=== PATIENT | male | born 1950 | race Caucasian/White ===

== ENCOUNTER 2020-10-17 10:09 | Outpatient (REF) | payer MEDICARE, SELFPAY ==
[2020-10-17 10:56] LABS: Alanine Aminotransferase 24 U/L (0-40); Albumin Level 4.2 g/dL (3.5-5.0); Alkaline Phosphatase 86 U/L (39-117); Aspartate Amino Transferase 17 U/L (5-37); Bilirubin Direct 0.6 mg/dL (0.0-0.5); Bilirubin Total 1.4 mg/dL (0.0-1.0); Cholesterol 123 mg/dL; HDL Cholesterol 36 mg/dL; LDL Cholesterol Calculated 75 mg/dl; Total Protein 6.9 g/dL (6.5-8.0); Triglycerides 64 mg/dL
[2020-10-17 13:06] LABS: Reflex LDLD? No
== END 2020-10-17 10:10 | disposition home or self-care (01) ==
LOC: HO.LNP 10:09
PROVIDERS: Visit Provider Internal Medicine
DX: I25.10 Atherosclerotic heart disease of native coronary artery without angina pectoris (principal); E78.6 Lipoprotein deficiency
CPT/HCPCS: 80061; 80076

== ENCOUNTER → 2020-11-20 16:10 | Outpatient (BNVA) | payer MEDICARE, SELFPAY | PROVIDERS: Visit Provider Nurse Practitioner Family | DX: K59.00 Constipation, unspecified (principal); K90.0 Celiac disease; K58.9 Irritable bowel syndrome, unspecified | CPT/HCPCS: 99212 ==

== ENCOUNTER 2020-11-22 16:45 | Outpatient (REF) | payer MEDICARE, SELFPAY ==
[2020-11-26 14:21] LABS: Transglutaminase Ab IgG 1 U/mL; Transglutaminase IgA 1 U/mL
== END 2020-11-22 16:46 | disposition home or self-care (01) ==
LOC: HO.LAB 16:45
PROVIDERS: PCP Internal Medicine; Visit Provider Nurse Practitioner Family
DX: R10.11 Right upper quadrant pain (principal); R14.0 Abdominal distension (gaseous)
CPT/HCPCS: 36415; 83516

== ENCOUNTER → 2020-12-25 15:40 | Outpatient (BNVA) | payer MEDICARE, SELFPAY | PROVIDERS: PCP Internal Medicine; Referring Provider Internal Medicine; Visit Provider Nurse Practitioner Family | DX: K90.0 Celiac disease (principal); K59.01 Slow transit constipation; K58.1 Irritable bowel syndrome with constipation | CPT/HCPCS: 99212 ==

== ENCOUNTER 2021-01-15 11:17 | Outpatient (REF) | payer MEDICARE, SELFPAY ==
--- NOTE | ~2021-01-15 | CT_ITS ---
EXAMINATION: CT CHEST WITHOUT CONTRAST CLINICAL INFORMATION: Followup pulmonary nodules. COMPARISON: None TECHNIQUE: Multidetector volumetric CT imaging of the chest was done. Axial MIP volume rendering provided. Sagittal and coronal reformatted images were obtained. This CT examination was performed using dose optimization techniques as appropriate, variously including the following: *Automated exposure control *Adjustment of mA and/or kV according to patient size (this includes techniques or standardized protocols for targeted exams where dose is matched to indication/reason for exam; i.e. extremities or head) *Use of iterative reconstruction technique DLP: 208 mGy-cm FINDINGS: LUNGS: There is a new 6 mm peripheral or subpleural right upper lobe nodule axial image 187 series 7. On sagittal and coronal reconstructed images, this appears linear and may represent an area of scarring or subsegmental atelectasis. There is a 2 mm calcified left upper lobe nodule axial image 217 series 7 that is stable. There is a 4 mm left upper lobe nodule axial image 424 series 7 that is stable. There is a 3 mm central right lower lobe nodule axial image 302 series 7 that is stable. There is a 5 mm left upper lobe nodule axial image 332 series 7 that is stable. There is a 6 mm right lower lobe nodule axial image 394 series 7 that is stable. There is scarring or subsegmental atelectasis in the inferior segment of the lingula. This appears decreased in size from previous exam. MEDIASTINUM: There is coronary artery and aortic valve calcification. The mediastinum is otherwise normal. PLEURA: There is no pleural effusion. No pleural mass or thickening. AXILLA: No lymphadenopathy. UPPER ABDOMEN: Unremarkable. OSSEOUS STRUCTURES: There are degenerative changes of the spine and at the shoulder joints. CT/CT chest wo con IMPRESSION: 6 mm new peripheral or subpleural right upper lobe nodule. On sagittal and coronal reconstructed images, this appears linear and may represent an area of subsegmental atelectasis. Otherwise, small pulmonary nodules are stable. Interval decrease in atelectasis or scarring in the lingula. Coronary artery and aortic valve calcification.
== END 2021-01-15 11:18 | disposition home or self-care (01) ==
LOC: HO.CT 11:17
PROVIDERS: Visit Provider Internal Medicine
DX: R91.1 Solitary pulmonary nodule (principal)
CPT/HCPCS: 71250

== ENCOUNTER 2021-04-15 10:26 | Outpatient (REF) | payer MEDICARE, SELFPAY ==
[2021-04-15 10:31] LABS: MANUAL DIFF FLAG NO
[2021-04-15 10:39] LABS: Basophils Absolute Auto 0.1 X10*3/uL (0.0-0.2); Basophils Percent Auto 0.8 % (0-2); Eosinophils Absolute Auto 0.5 X10*3/uL (0.0-0.4); Eosinophils Percent Auto 6.8 % (0-4); Hematocrit 42.1 % (42.0-52.0); Hemoglobin 13.3 g/dl (14.0-18.0); Imm Gran Abs Auto 0.01 X10*3/uL (0.00-0.03); Imm Gran Pct Auto 0.1 % (0.0-0.4); Lymphocytes Percent Auto 26.8 % (20-40); Mean Corpuscular HGB Conc 31.6 g/dl (31.0-36.0); Mean Corpuscular Hemoglobin 26.2 pg (27.0-33.0); Mean Platelet Volume 11.8 fL (9.4-12.4); Monocytes Absolute Auto 0.8 X10*3/uL (0.1-1.2); Monocytes Percent Auto 10.4 % (2-11); Neutrophils Absolute Auto 4.1 x10*3/uL (2.0-8.3); Neutrophils Percent Auto 55.1 % (45-73); Platelet Count 185 X10*3/uL (160-400); Red Blood Count 5.07 X10*6/uL (4.60-5.80); Red Cell Distribution Width 14.6 % (11.0-16.0); White Blood Count 7.4 X10*3/uL (4.8-10.8)
[2021-04-15 10:52] LABS: Alanine Aminotransferase 26 U/L (0-40); Albumin Level 4.2 g/dL (3.5-5.0); Alkaline Phosphatase 100 U/L (39-117); Anion Gap 13 (12-20); Aspartate Amino Transferase 18 U/L (5-37); Bilirubin Total 1.2 mg/dL (0.0-1.0); Blood Urea Nitrogen 15 mg/dL (9-16); Carbon Dioxide 26 mmol/L (22-29); Chloride 106 mmol/L (96-108); Cholesterol 133 mg/dL; Estimated Glomerular Filt Rate > 60; Glucose Fasting 115 mg/dL (60-99); HDL Cholesterol 32 mg/dL; LDL Cholesterol Calculated 80 mg/dl; Potassium 4.4 mmol/L (3.3-5.1); Sodium 141 mmol/L (135-145); Total Protein 7.1 g/dL (6.5-8.0); Triglycerides 105 mg/dL
[2021-04-15 10:58] LABS: Appearance Urine CLEAR; Color Urine YELLOW; Glucose Urine UA NEG (NEG); Leukocyte Esterase Urine NEG (NEG); Nitrite Urine NEG (NEG); Urine Blood 1+ (NEG); Urine Ketones NEG (NEG); Urine Protein NEG (NEG-TRACE)
[2021-04-15 11:17] LABS: PSA,Total (Free>4and<10) 0.53 ng/mL (0.00-4.00); WBC Urine 0-2 /HPF (0-4)
== END 2021-04-15 10:27 | disposition home or self-care (01) ==
LOC: HO.LNP 10:26
PROVIDERS: PCP Internal Medicine; Visit Provider Internal Medicine
DX: Z00.00 Encounter for general adult medical examination without abnormal findings (principal); Z12.5 Encounter for screening for malignant neoplasm of prostate; I10 Essential (primary) hypertension; D50.9 Iron deficiency anemia, unspecified; I25.10 Atherosclerotic heart disease of native coronary artery without angina pectoris
CPT/HCPCS: 80053; 80061; 81001; 81003; 84153; 85025

== ENCOUNTER 2021-11-03 11:27 | Outpatient (REF) | payer MEDICARE, SELFPAY ==
[2021-11-03 12:02] LABS: Alanine Aminotransferase 32 U/L (0-40); Albumin Level 4.4 g/dL (3.5-5.0); Alkaline Phosphatase 89 U/L (39-117); Aspartate Amino Transferase 21 U/L (5-37); Bilirubin Direct 0.6 mg/dL (0.0-0.5); Bilirubin Total 1.8 mg/dL (0.0-1.0); Cholesterol 148 mg/dL; HDL Cholesterol 37 mg/dL; LDL Cholesterol Calculated 89 mg/dl; Total Protein 7.3 g/dL (6.5-8.0); Triglycerides 110 mg/dL
[2021-11-03 12:16] LABS: Reflex LDLD? No
== END 2021-11-03 11:28 | disposition home or self-care (01) ==
LOC: HO.LNP 11:27
PROVIDERS: PCP Internal Medicine; Visit Provider Internal Medicine
DX: E78.6 Lipoprotein deficiency (principal)
CPT/HCPCS: 80061; 80076

== ENCOUNTER 2021-12-24 13:08 | Outpatient (REF) | payer MEDICARE, SELFPAY ==
--- NOTE | ~2021-12-24 | CT_ITS ---
EXAMINATION: CT CHEST WITHOUT CONTRAST CLINICAL INFORMATION: Lung nodules. COMPARISON: CT chest 01/15/2021, 12/15/2018; PET/CT 01/05/2019 TECHNIQUE: Multidetector volumetric CT imaging of the chest is performed without intravenous contrast. Axial MIP volume rendering provided. Sagittal and coronal reformatted images were obtained. This CT examination was performed using dose optimization techniques as appropriate, variously including the following: *Automated exposure control *Adjustment of mA and/or kV according to patient size (this includes techniques or standardized protocols for targeted exams where dose is matched to indication/reason for exam; i.e. extremities or head) *Use of iterative reconstruction technique DLP: 226 mGy-cm FINDINGS: LUNGS: Right lung shows no increasing nodule or new interval new nodule, infiltrate, or groundglass opacity from prior studies. The nodule for follow-up posterior medial upper lobe series 7/184 is substantially decreased in size and appears linear on coronal imaging consistent with benign entity. The largest persistent nodule subpleural posterior right lower lobe 5-6 mm is stable since 2019 consistent with benign nodule, series 7/418. Other small scattered nodularity under 4 mm are also stable since 2019 and therefore benign. Left lung has subsegmental atelectasis in the inferior lingula, decreased from prior exam 01/15/2021. Finding was new from the prior study 2018. Other nodularity left lung are all stable since 2019 consistent with benign nodules, largest 5 mm anterior lateral left upper lobe, series 7/312. There is no increasing nodule or new nodule, infiltrate, or groundglass opacity from prior studies. MEDIASTINUM: No hilar or mediastinal adenopathy. Thoracic aorta normal in caliber. Coronary artery atherosclerotic calcifications again seen. No pericardial effusion. PLEURA: No interval pleural effusion or pleural mass or pleural thickening. AXILLA: No lymphadenopathy. UPPER ABDOMEN: Unremarkable. OSSEOUS STRUCTURES: Unremarkable. CT/CT chest wo con IMPRESSION: -Pleural-based nodules/atelectasis posterior medial right upper lobe for follow-up is substantially decreased consistent with benign entity. Other nodularity on right stable since 2019 consistent with benign nodules. -Subsegmental atelectasis inferior lingula left lung decreased from prior exam 01/15/2021. Other nodularity on left stable since 2019 consistent with benign nodules. -No new pulmonary nodule. No adenopathy or effusion. Fleischner guidelines were followed. Reference: The Fleischner Society recommendations for management of incidentally detected pulmonary nodules in adults age 35 and greater are based on average nodule size and patient risk category. The recommendations do not apply to lung cancer screening, patients with immunosuppression, or patients with known primary cancer. Single solid nodule average size < 6 mm: Low Risk Patient: No routine follow-up. High Risk Patient: Optional CT at 12 months. Certain patients at high risk with suspicious nodule morphology, upper lobe location, or both may warrant 12-month follow-up. Multiple solid nodules average size < 6 mm: Low Risk Patient: No routine follow-up. High Risk Patient: Optional CT at 12 months. Use most suspicious nodule as guide to management. Follow-up intervals may vary according to size and risk.
== END 2021-12-24 13:09 | disposition home or self-care (01) ==
LOC: HO.CT 13:08
PROVIDERS: PCP Internal Medicine; Visit Provider Internal Medicine
DX: R91.1 Solitary pulmonary nodule (principal)
CPT/HCPCS: 71250

== ENCOUNTER 2022-05-05 11:06 | Outpatient (REF) | payer MEDICARE, SELFPAY ==
[2022-05-05 13:59] LABS: Alanine Aminotransferase 29 U/L (0-40); Albumin Level 4.3 g/dL (3.5-5.0); Alkaline Phosphatase 102 U/L (39-117); Aspartate Amino Transferase 21 U/L (5-37); Bilirubin Direct 0.5 mg/dL (0.0-0.5); Bilirubin Total 1.5 mg/dL (0.0-1.0); Cholesterol 145 mg/dL; HDL Cholesterol 37 mg/dL; LDL Cholesterol Calculated 91 mg/dl; Triglycerides 89 mg/dL
[2022-05-05 14:13] LABS: Reflex LDLD? No
== END 2022-05-05 11:07 | disposition home or self-care (01) ==
LOC: HO.LNP 11:06
PROVIDERS: Visit Provider Internal Medicine
DX: E78.00 Pure hypercholesterolemia, unspecified (principal)
CPT/HCPCS: 80061; 80076

== ENCOUNTER 2022-05-12 10:29 | Outpatient (REF) | payer MEDICARE, SELFPAY ==
[2022-05-12 10:32] LABS: MANUAL DIFF FLAG NO
[2022-05-12 10:59] LABS: Basophils Percent Auto 0.5 % (0-2); Eosinophils Absolute Auto 0.4 X10*3/uL (0.0-0.4); Eosinophils Percent Auto 4.2 % (0-4); Hemoglobin 13.2 g/dl (14.0-18.0); Imm Gran Abs Auto 0.03 X10*3/uL (0.00-0.03); Imm Gran Pct Auto 0.4 % (0.0-0.4); Lymphocytes Absolute Auto 1.5 X10*3/uL (1.2-4.9); Lymphocytes Percent Auto 17.7 % (20-40); Mean Corpuscular Hemoglobin 27.3 pg (27.0-33.0); Mean Corpuscular Volume 82.6 fL (80.0-98.0); Monocytes Absolute Auto 0.8 X10*3/uL (0.1-1.2); Monocytes Percent Auto 9.1 % (2-11); Neutrophils Absolute Auto 5.6 x10*3/uL (2.0-8.3); Neutrophils Percent Auto 68.1 % (45-73); Platelet Count 178 X10*3/uL (160-400); Red Blood Count 4.84 X10*6/uL (4.60-5.80); Red Cell Distribution Width 14.6 % (11.0-16.0); White Blood Count 8.2 X10*3/uL (4.8-10.8)
[2022-05-12 11:01] LABS: Appearance Urine Clear; Color Urine Yellow; Glucose Urine UA Negative (Negative); Leukocyte Esterase Urine Negative (Negative); Nitrite Urine Negative (Negative); PH 5.5 (5.0-9.0); UMIC TRIGGER UA YES; Urine Blood Trace (Negative); Urine Ketones Negative (Negative); Urine Protein Negative (Neg-Trace)
[2022-05-12 11:06] LABS: Bacteria Urine None Seen (None Seen); Hyaline Casts Urine 0-2 /LPF (0-2); RBC Urine 0-2 /HPF (0-2); Squamous Epithelial Cell Urine 0-2 /HPF (0-2); WBC Urine 0-5 /HPF (0-5)
[2022-05-12 15:13] LABS: Alanine Aminotransferase 26 U/L (0-40); Albumin Level 4.4 g/dL (3.5-5.0); Alkaline Phosphatase 101 U/L (39-117); Anion Gap 14 (12-20); Aspartate Amino Transferase 19 U/L (5-37); Blood Urea Nitrogen 23 mg/dL (9-16); Calcium 9.3 mg/dL (8.4-10.2); Carbon Dioxide 28 mmol/L (22-29); Chloride 103 mmol/L (96-108); Estimated Glomerular Filt Rate > 60; Glucose Fasting 114 mg/dL (60-99); PSA,Total (Free>4and<10) 0.66 ng/mL (0.00-4.00); Potassium 3.9 mmol/L (3.3-5.1); Sodium 141 mmol/L (135-145); Total Protein 7.1 g/dL (6.5-8.0); Uric Acid 9.4 mg/dL (3.4-7.0)
== END 2022-05-12 10:30 | disposition home or self-care (01) ==
LOC: HO.LNP 10:29
PROVIDERS: Visit Provider Internal Medicine
DX: Z12.5 Encounter for screening for malignant neoplasm of prostate (principal); M17.10 Unilateral primary osteoarthritis, unspecified knee; K90.0 Celiac disease; M1A.9XX1 Chronic gout, unspecified, with tophus (tophi); Z87.448 Personal history of other diseases of urinary system
CPT/HCPCS: 80053; 81001; 84153; 84550; 85025

== ENCOUNTER → 2022-06-11 10:31 | Outpatient (REF) | payer MEDICARE, SELFPAY ==
--- NOTE | 2022-06-11 10:37 | CA_ITS ---
Transthoracic Echocardiogram Patient (Last, First, Middle): Yayo Rodrigues M Gender: Male Date of : 1950 Age: 72 Procedure Date: 06/11/2022 Procedure Type: Transthoracic Echocardiogram Location: OP Height: 177.8 cm Weight: 95.26 kg BSA: 2.13 m2 Heart Rate: 56 bpm BP: 110 / 60 mmHg Tuberculosis Specialist: BARRY Referring MD: Osito Mulligan MD Sugar Reprocess Operator Head: Tk Garrido MD Symptoms: I35.0 NR AVS Study Quality: Fair ECG Rhythm: Bradycardia Conclusions: - 1. Normal LV systolic function with impaired relaxation filling pattern with increased filling pressures 2. Mildly dilated left atrium 3. Mild aortic stenosis 4. Normal RV systolic pressure 5. Mildly dilated ascending aorta at 4 cm 6. No pericardial effusion Findings Left Ventricle Normal left ventricular size, thickness, and systolic function. The visually estimated ejection fraction is between 55-60%. Spectral Doppler is indicative of an impaired relaxation filling pattern. Elevated filling pressures. E/E prime ratio is >15, consistent with elevated filling pressures. Right Ventricle Normal right ventricular cavity size and systolic function. Atria The left atrium is mildly dilated. Interatrial shunt cannot be excluded. The right atrium is normal in size. Aortic Valve There is moderate calcification of the aortic valve. There is mild aortic valve stenosis. The peak aortic gradient is 23 mmHg.The mean gradient is 13 mmHg. The aortic valve area is 1.58 cm2. There is no aortic valve regurgitation. Mitral Valve There is mild anterior and moderate posterior mitral leaflet thickening. There is moderate mitral annular calcification. There is trace mitral valve regurgitation. There is no mitral valve stenosis. Pulmonic Valve The pulmonic valve was not well visualized. Tricuspid Valve Likely normal tricuspid valve structure and function. There is trace tricuspid valve regurgitation. The right ventricular systolic pressure is normal. The right ventricular systolic pressure is 21 mmHg. Normal right atrial pressure. There is no evidence of pulmonary hypertension. Great Vessels The pulmonary artery was not well visualized. There is mild dilatation of the ascending aorta measuring 4.00 cm. Venous The inferior vena cava is normal in size and collapses greater than 50% with inspiration. Pericardium/Pleural There is no evidence of pericardial effusion. Prior Study Comparison Changes noted compared to prior study dated: 10/13/2016. ascending aorta is mildly enlarged Measurements 2D Linear Measurements IVSd: 1.06 0.6-0.9/0.6-1.0 cm LVIDd: 5.47 3.9-5.3/4.2-5.9 cm LVIDd Index: 2.57 2.4-3.2/2.2-3.1 cm/m2 LVIDs: 3.96 2.0-3.6 cm LVPWd: 0.79 0.7-1.1 cm LA Diam: 3.90 2.7-3.8/3.0-4.0 cm LAIDs Index: 1.83 1.5-2.3 cm/m2 LV Mass: 237.20 67-162/88-224 g LV Mass Index: 111.36 43-95/49-115 g/m2 LVOT Diam: 2.30 3.0+(-)1.3 cm 2D Systolic Function EF 4C: 59.70 >55% EF 2C: 55.00 >55% EF BiP: 56.30 >55% Mitral Valve MV VTI: 0.44 MV Pk Rudi: 1.08 MV Mn Rudi: 0.66 MV Pk Grad: 5.00 MV Mn Grad: 2.00 MV Pk E: 0.91 MV PK A: 0.96 MV Decel Time: 298.00 E/A: 1.00 E'Lateral: 4.98 E'Medial: 4.88 E/E' Med: 18.60 E/E' Lat: 18.20 PHT: 87.00 MVA PHT: 2.53 MVA Continuity: 2.02 Decel Collin: 3.05 Aortic Valve AoV Pk Rudi: 2.39 AoV Mn Rudi: 1.74 AoV VTI: 0.56 AoV Pk Grad: 23.00 Aov Mn Grad: 13.00 LAUREN Cont.VTI: 1.58 LVOT LVOT Pk Rudi: 0.92 LVOT Mn Rudi: 0.65 LVOT VTI: 0.21 LVOT Pk Grad: 3.00 LVOT Mn Grad: 2.00 LVOT Diam: 2.30 LVOT Area: 4.15 Diastolic Function MV Pk E: 0.91 MV Pk A: 0.96 E/A: 1.00 E'Medial: 4.88 E/E' Med: 18.60 E' Laterial: 4.98 E/E' Lat: 18.20 Right Ventricle TAPSE (mm): 22.30 TVS' Rudi: 11.60 Tricuspid Valve TR Pk Rudi: 2.13 TR Pk Grad: 18.00 RA Press: 3.00 RVSP: 21.00 Great Vessels Aorta Sinus of Valsalva: 3.90 2.0-3.5 cm Ao Asc: 4.00 2.1-3.4 cm Pulmonary Valve PV Pk Rudi: 0.87 Peak PV Grad: 3.00 Updated in Other Vendor System with Status of Final Tk Garrido MD electronically signed on 06/11/2022 4:36:53 PM with status of Final
== END ==
LOC: HO.CARD 10:31
PROVIDERS: PCP Internal Medicine; Visit Provider Internal Medicine
DX: I35.0 Nonrheumatic aortic (valve) stenosis (principal)
CPT/HCPCS: 93306

== ENCOUNTER 2022-06-18 06:05 | Outpatient (REF) | payer MEDICARE, SELFPAY ==
--- NOTE | ~2022-06-18 | XR_ITS ---
EXAMINATION: RADIOGRAPH OF EACH KNEE, INCLUDING STANDING VIEWS CLINICAL INFORMATION: Pain. COMPARISON: No similar priors. TECHNIQUE: AP standing view of the knees. 2 views of each knee. FINDINGS: No acute fractures or subluxation. Severe tricompartmental degenerative osteoarthritis in both knees with joint space narrowing, subcortical sclerosis and marginal osteophytes more noticeable along the medial and patellofemoral compartments, slightly greater on the left side. No erosions or chondrocalcinosis. Small bilateral joint effusions. Scattered vascular calcifications. XR/XR knee RT 2V IMPRESSION: 1. No acute fractures or subluxation. 2. Severe tricompartmental degenerative osteoarthritis in both knees. 3. Small bilateral joint effusions.
--- NOTE | ~2022-06-18 | XR_ITS ---
EXAMINATION: RADIOGRAPH OF EACH KNEE, INCLUDING STANDING VIEWS CLINICAL INFORMATION: Pain. COMPARISON: No similar priors. TECHNIQUE: AP standing view of the knees. 2 views of each knee. FINDINGS: No acute fractures or subluxation. Severe tricompartmental degenerative osteoarthritis in both knees with joint space narrowing, subcortical sclerosis and marginal osteophytes more noticeable along the medial and patellofemoral compartments, slightly greater on the left side. No erosions or chondrocalcinosis. Small bilateral joint effusions. Scattered vascular calcifications. XR/XR knee standing BI IMPRESSION: 1. No acute fractures or subluxation. 2. Severe tricompartmental degenerative osteoarthritis in both knees. 3. Small bilateral joint effusions.
--- NOTE | ~2022-06-18 | XR_ITS ---
EXAMINATION: RADIOGRAPH OF EACH KNEE, INCLUDING STANDING VIEWS CLINICAL INFORMATION: Pain. COMPARISON: No similar priors. TECHNIQUE: AP standing view of the knees. 2 views of each knee. FINDINGS: No acute fractures or subluxation. Severe tricompartmental degenerative osteoarthritis in both knees with joint space narrowing, subcortical sclerosis and marginal osteophytes more noticeable along the medial and patellofemoral compartments, slightly greater on the left side. No erosions or chondrocalcinosis. Small bilateral joint effusions. Scattered vascular calcifications. XR/XR knee LT 2V IMPRESSION: 1. No acute fractures or subluxation. 2. Severe tricompartmental degenerative osteoarthritis in both knees. 3. Small bilateral joint effusions.
== END 2022-06-18 06:06 | disposition home or self-care (01) ==
LOC: HO.HOSX 06:05
PROVIDERS: Visit Provider Physician Assistant
DX: M25.562 Pain in left knee (principal); M25.561 Pain in right knee
CPT/HCPCS: 73560; 73565; 99202

== ENCOUNTER 2022-10-06 10:02 | Day surgery (SDC) | payer MEDICARE, SELFPAY ==
--- NOTE | 2022-10-05 11:06 | HO.ANESPROP2 ---
HPI - Anesthesia Eval Consult details Narrative: 72yo M for Colonoscopy PMFSH Active Problems Active Problems: All Active Problems (Updated 10/05/22 @ 10:26 by Gisselle Moon, RN) Osteoarthritis of knees, bilateral (Acute) Past Medical History Medical History (Updated 10/05/22 @ 10:26 by Gisselle Moon, RN) Family history of heart murmur High cholesterol History of celiac disease Hx of acute arthritis Hx of cardiac murmur Hx of colonic polyps Hx of gout Family History Family History Father Lung cancer Surgical History Surgical History Hx of esophagogastroduodenoscopy Hx of hernia repair Social History Social History Patient Tobacco Use Status: Never used Tobacco Are you DNR?: No Advance Directives: No Advance Directives Information Provided: Yes Meds Allergies Allergy/AdvReac Type Severity Reaction Status Date / Time codeine Allergy Unknown mild Verified 06/18/22 10:07 Sulfa (Sulfonamide Allergy Unknown RASH Verified 06/18/22 10:07 Antibiotics) Home Medications Medication Instructions Recorded Confirmed Last Taken Type amlodipine 5 mg tablet 5 mg PO DAILY 11/20/20 06/18/22 10/06/22 History aspirin 81 mg tablet,delayed 81 mg PO DAILY 11/20/20 06/18/22 09/29/22 History release (Adult Aspirin Regimen) atorvastatin 40 mg tablet 40 mg PO DAILY 11/20/20 06/18/22 Unknown History cholecalciferol (vitamin D3) 50 50 mcg PO DAILY 11/20/20 06/18/22 Unknown History mcg (2,000 unit) capsule lisinopril 20 mg tablet 20 mg PO BID 11/20/20 06/18/22 Unknown History metoprolol tartrate 100 mg tablet 100 mg PO BID 11/20/20 06/18/22 10/06/22 History Exam Exam Date and Time: October 05, 2022 1106 Pertinent Lab Results Pertinent Lab Results: Laboratory Tests 05/12/22 05/12/22 09:30 09:30 WBC 8.2 Hgb 13.2 L Hct 40.0 L Plt Count 178 Sodium 141 Potassium 3.9 Chloride 103 Carbon Dioxide 28 BUN 23 H Creatinine 1.06 Narrative Narrative: ECHO 05/2022 Conclusions: - 1. Normal LV systolic function with impaired relaxation filling pattern with increased filling pressures ? 2. Mildly dilated left atrium? 3. Mild aortic stenosis? 4. Normal RV systolic pressure ? 5. Mildly dilated ascending aorta at 4 cm? 6. No pericardial effusion ? Assessment and Plan Assessment Anesthesia Assessment: Chart Reviewed
[2022-10-06 10:09] VITALS: BMI 30.1
[2022-10-06 10:24] VITALS: BP 150/78; PULSE 56; RESP 18; TEMP 36.6; O2SAT 98
[2022-10-06] MEDS: Lactated Ringers 1,000 ML 100 ML IVCONT (10:49)
--- NOTE | 2022-10-06 11:41 | MHC.SHP ---
Pre-Procedural Eval Section A Date of Service: 10/06/22 Section B Chief Complaint: screening Details of Present Illness: see H&P no changes Relevant Family History (Specify if Yes): No Relevant Social History: None Present Medications: see Short Stay Collaborative assessment Medical History: No relevant PMH History of Previous Operations: No relevant previous surgery Allergies: Allergies Allergy/AdvReac Type Severity Reaction Status Date / Time codeine Allergy Unknown mild Verified 06/18/22 10:07 Sulfa (Sulfonamide Allergy Unknown RASH Verified 06/18/22 10:07 Antibiotics) Review of Systems Sugical H&P ROS: Negative: Constitution, Cardiovascular, Respiratory, Neurological, Psychiatric, Hem-Onc, Allergic/Immunologic, Gastrointestinal, Genitourinary, Musculoskeletal, Integumentary, Endocrine and Eyes/Ears/Nose/Throat Exam Surgical H&P Exam: Normal: HEENT, Normal: Heart, Normal: Lungs, Normal: Extremities, Normal: Abdomen, Normal: Skin and Normal: Neurological Plan Diagnosis/Plan: Unchanged I have reviewed the history and physical and performed a pertinent physical examination on my patient. No changes have occurred unless specified. Time Spent With Patient Time: Total time managing care of this patient today ____ minutes.
--- NOTE | 2022-10-06 12:20 | HO.ANESPROP2 ---
HPI - Anesthesia Eval Consult details Narrative: screening personal ho polyp PMFSH Active Problems Active Problems: All Active Problems (Updated 10/05/22 @ 10:26 by Gisselle Moon, RN) Osteoarthritis of knees, bilateral (Acute) Past Medical History Medical History (Updated 10/05/22 @ 10:26 by Gisselle Moon, RN) Family history of heart murmur High cholesterol History of celiac disease Hx of acute arthritis Hx of cardiac murmur Hx of colonic polyps Hx of gout Family History Family History Father Lung cancer Family history of problems with anesthesia: No Surgical History Surgical History Hx of esophagogastroduodenoscopy Hx of hernia repair History of Problems with Anesthesia: No Social History Social History Patient Tobacco Use Status: Never used Tobacco Are you DNR?: No Advance Directives: No Advance Directives Information Provided: Yes Meds Allergies Allergy/AdvReac Type Severity Reaction Status Date / Time codeine Allergy Unknown mild Verified 06/18/22 10:07 Sulfa (Sulfonamide Allergy Unknown RASH Verified 06/18/22 10:07 Antibiotics) Active Medications: Current Medications Lactated Ringer's (Lr) 1,000 mls @ 100 mls/hr IVCONT .Q10H MARGO Last Admin: 10/06/22 10:49 Dose: 100 mls/hr Home Medications Medication Instructions Recorded Confirmed Last Taken Type amlodipine 5 mg tablet 5 mg PO DAILY 11/20/20 06/18/22 10/06/22 History aspirin 81 mg tablet,delayed 81 mg PO DAILY 11/20/20 06/18/22 09/29/22 History release (Adult Aspirin Regimen) atorvastatin 40 mg tablet 40 mg PO DAILY 11/20/20 06/18/22 Unknown History cholecalciferol (vitamin D3) 50 50 mcg PO DAILY 11/20/20 06/18/22 Unknown History mcg (2,000 unit) capsule lisinopril 20 mg tablet 20 mg PO BID 11/20/20 06/18/22 Unknown History metoprolol tartrate 100 mg tablet 100 mg PO BID 11/20/20 06/18/22 10/06/22 History Exam Exam Date and Time: October 06, 2022 1220 Height,Weight and Vital Signs: Height 5 ft 10 in Weight 95.254 kg Last Vital Signs Temp 98 F 10/06/22 10:24 Pulse 56 10/06/22 10:24 Resp 18 10/06/22 10:24 BP 150/78 H 10/06/22 10:24 Pulse Ox 98 10/06/22 10:24 O2 Del Method Room Air 10/06/22 10:24 Airway Mallampati Class: II TM Dist: >3cm Neck ROM: Full Loose/Missing/Broken Teeth: Yes and No Heart: rr Lungs: cta Assessment and Plan Assessment Anesthesia Assessment: Anesthesia Plan Discussed and Chart Reviewed Final Anesthetic Review Family History of Problems with Anesthesia: No History of Problems with Anesthesia: No NPO: Yes ASA Class: III Final Preanesthetic Review: No Changes in Pt Med Stat, Meds/Allgs Chart Reviewed, Consent Obtained/Reviewed and Anes Risks/Benef Reviewed Patient Risk: Low Procedure Risk: Low Anesthetic Plan Anesthetic Plan: MAC: Disposition: Standard PACU
--- NOTE | 2022-10-06 12:23 | PM.OP ---
Brief Operative Note Date of Service: 10/06/22 Pre-op diagnosis: screening Post-op diagnosis: same Surgeon: Alirio Faith Anesthesia: MAC Was an Technology Support Analyst used for this Procedure?: No Estimated blood loss (mL): 0 Pathology: other Condition: stable Disposition: PACU
[2022-10-06 12:30] VITALS: BP 99/54; PULSE 58; RESP 16; TEMP 36.6; O2SAT 94
[2022-10-06 12:50] VITALS: BP 130/70; PULSE 63; RESP 18; TEMP 36.1; O2SAT 96
--- NOTE | 2022-10-06 13:16 | OP_ITS ---
DATE OF SERVICE: 10/06/2022 SURGEON: Alirio Faith MD INDICATIONS: Colon cancer screening and prior history of adenomatous colon polyps. PREOPERATIVE DIAGNOSIS: POSTOPERATIVE DIAGNOSIS: PROCEDURE PERFORMED: Colonoscopy to the terminal ileum with snare polypectomy. ESTIMATED BLOOD LOSS: COMPLICATIONS: ANESTHESIA: Monitored anesthesia care. ASSISTANTS: SPECIMENS: DESCRIPTION OF PROCEDURE: History and physical was performed. The risks and benefits of the procedure were explained to the patient. Informed consent was obtained. The patient was placed in the left lateral decubitus position. A digital rectal exam was performed and was found to be normal. The Olympus pediatric video colonoscope was introduced into the rectum and advanced to the cecum. The cecum was identified by transillumination, palpation, and identification of ileocecal valve. Examination was performed. The scope was removed. He tolerated the procedure well and was returned to the recovery area in stable condition. FINDINGS: The terminal ileum was examined and appeared normal. The visualized colonic mucosa was normal. The quality of the prep was good. At 20 cm was an 8 mm polyp, which was removed with a snare and recovered via suction. No other polyps were identified. Retroflexed examination showed moderate-sized internal hemorrhoids. IMPRESSION: Colon polyp. RECOMMENDATION: Follow up the biopsy results. MD KEN Reynolds/MODL / [id number]
== END 2022-10-06 13:15 | disposition home or self-care (01) ==
PROVIDERS: PCP Internal Medicine; Visit Provider Internal Medicine Gastroenterology
PROC: 0DJD8ZZ Inspection of Lower Intestinal Tract, Via Natural or Artificial Opening Endoscopic (ICD-10-PCS; CPT 45378; principal; 2022-10-06 11:00)
DX: Z12.11 Encounter for screening for malignant neoplasm of colon (principal); K63.5 Polyp of colon; Z86.010 Personal history of colon polyps; I10 Essential (primary) hypertension; Z88.2 Allergy status to sulfonamides; Z88.5 Allergy status to narcotic agent
CPT/HCPCS: 45385; 88305

== ENCOUNTER 2022-11-03 14:46 | Outpatient (REF) | payer MEDICARE, SELFPAY ==
[2022-11-03 15:49] LABS: Alanine Aminotransferase 22 U/L (0-40); Albumin Level 4.2 g/dL (3.5-5.0); Alkaline Phosphatase 96 U/L (39-117); Aspartate Amino Transferase 20 U/L (5-37); Bilirubin Direct 0.5 mg/dL (0.0-0.5); Bilirubin Total 2.2 mg/dL (0.0-1.0); Cholesterol 133 mg/dL; HDL Cholesterol 33 mg/dL; LDL Cholesterol Calculated 80 mg/dl; Total Protein 6.8 g/dL (6.5-8.0); Triglycerides 103 mg/dL
[2022-11-03 21:30] LABS: Reflex LDLD? No
== END 2022-11-03 14:47 | disposition home or self-care (01) ==
LOC: HO.LNP 14:46
PROVIDERS: Visit Provider Internal Medicine
DX: E78.00 Pure hypercholesterolemia, unspecified (principal)
CPT/HCPCS: 80061; 80076

== ENCOUNTER 2023-01-24 08:36 | Emergency (ER) | payer MEDICARE, SELFPAY ==
--- NOTE | ~2023-01-24 | US_ITS ---
EXAMINATION: US SCROTUM CLINICAL INFORMATION: swollen and hydrocele . COMPARISON: None available. TECHNIQUE: A sonogram of the scrotum was performed assessing dawn-scale appearance and color Doppler flow. Spectral Doppler analysis of the arterial and venous flow were performed in the testes bilaterally. FINDINGS: RIGHT: Right testicle measures 5.1 x 1.8 x 2.4 cm, volume 11.6 mL. No focal testicular parenchymal lesions are visualized. Spectral Doppler analysis of the arterial and venous flow is normal in the right testis. Much of the right epididymal head is replaced by a 1.1 x 0.9 x 1.1 cm cyst. Right epididymal Doppler flow was not performed. There is a large right-sided hydrocele measuring 658 mL LEFT: Left testicle measures 4.2 x 2.5 x 2.0 cm, volume 11 mL. No focal testicular parenchymal lesions are visualized. Spectral Doppler analysis of the arterial and venous flow is normal in the left testis. Left epididymal head is normal in size. No left hydrocele or varicocele is seen. Left epididymal Doppler flow is present. There is a large left-sided hydrocele measuring 108 mL per US/US scrotum IMPRESSION: Large bilateral hydroceles, right greater than left. A 1.1 cm right epididymal head cyst. Blood flow was not documented in the right epididymis, though it is uncertain if this was because the epididymis was not well seen or because blood flow was not detected within the imaged epididymal tissue. Corresponding images are not seen. The former is favored in the absence of an apparent enlarged, edematous epididymis. Normal appearance of the testicles with normal bilateral blood flow.
--- NOTE | 2023-01-24 08:51 | ED.MALEGU ---
HPI - Male Genitourinary General Chief complaint: General Medical Stated complaint: swollen tesicles Time Seen by Provider: 01/24/23 08:43 Source: family Mode of arrival: ambulatory Limitations: no limitations History of Present Illness HPI Narrative: patient with testicular swelling for a year. Not painful, his doctor knows about it. No fever no discharge not vomiting. Right foot in addition has a callous that may have gotten infected. Complaint: testicle swelling Onset (ago): month(s) Location: right testicle Related Data Home Medications Medication Instructions Recorded Confirmed amlodipine 5 mg tablet 5 mg PO DAILY 11/20/20 06/18/22 aspirin 81 mg tablet,delayed 81 mg PO DAILY 11/20/20 06/18/22 release (Adult Aspirin Regimen) atorvastatin 40 mg tablet 40 mg PO DAILY 11/20/20 06/18/22 cholecalciferol (vitamin D3) 50 50 mcg PO DAILY 11/20/20 06/18/22 mcg (2,000 unit) capsule lisinopril 20 mg tablet 20 mg PO BID 11/20/20 06/18/22 metoprolol tartrate 100 mg tablet 100 mg PO BID 11/20/20 06/18/22 Previous Rx's Medication Instructions Recorded docusate sodium 100 mg capsule 100 mg PO BEDTIME #30 caps 11/20/20 Allergies Allergy/AdvReac Type Severity Reaction Status Date / Time codeine Allergy Unknown mild Verified 06/18/22 10:07 Sulfa (Sulfonamide Allergy Unknown RASH Verified 06/18/22 10:07 Antibiotics) Review of Systems Review of Systems: Yes all other systems are reviewed and are negative Neurologic: Denies Sensory deficit (Neuro) [facility] Past Medical History Medical History Family history of heart murmur High cholesterol History of celiac disease Hx of acute arthritis Hx of cardiac murmur Hx of colonic polyps Hx of gout Surgical History Hx of esophagogastroduodenoscopy Hx of hernia repair Family History Family History Father Lung cancer Social History Social History Patient Tobacco Use Status: Never used Tobacco Advance Directives: Yes Advance Directives Information Provided: No Advance Directives on File: No Physical Exam Vital Signs: Vital Signs: Last Vital Signs Temp 98.1 F 01/24/23 10:10 Pulse 53 01/24/23 10:10 Resp 14 01/24/23 10:10 BP 163/76 H 01/24/23 10:10 Pulse Ox 98 01/24/23 10:10 O2 Del Method Room Air 01/24/23 10:10 BMI result Body Mass Index 28.0 Const: Other: male looking much older than stated age Nutritional Appearance: average body habitus Orientation/consciousness: oriented to person and patient oriented x3 Limitations: no limitations HEENT: Head: Yes normal to inspection Ears: external ears normal General nose exam: Normal external nose present Mouth: Normal oral and palatal mucosa present and oropharynx normal Throat: Yes posterior oropharynx normal Eyes: General: appearance normal, both eyes and all related structures Neck: Other: supple Neck: Yes normal visual inspection Chest: Chest palpation & inspection: normal inspection of the chest Resp: Auscultation: clear to auscultation bilaterally Cardio: Jugular venous distension: no JVD Rate: regular rate Rhythm: regular rhythm Heart sounds: S1 normal heart sound present and S2 normal heart sound present GI: Inspection: Yes normal to inspection Palpation (GI): Soft to palpation, nontender and No hepatosplenomegaly present Auscultation: normal bowel sounds : Other: Right swollen testicle, firm, no erythema nontender likely hydrocele General: Yes no CVA tenderness Back/Spine/Pelvis: Back: no CVA tenderness Skin: General skin exam: no rashes or lesions noted Neuro: General: oriented to person and patient oriented x3 Cranial nerves: Yes CN's II-XII intact bilaterally Motor exam (neuro): 5/5 motor strength present throughout Sensory Exam: No Sensory deficit (Neuro) Extrem: General: Yes normal to inspection Psych: Appearance: grossly normal Course Reevaluation(s) Reevaluation #1: patient with a hydrocele on the right and a firm callous in the right foot will dc home Time: 11:19 Medical Decision Making Differential Diagnosis Differential Diagnoses: The differential diagnosis associated with the presentation includes (hydrocele, hernia, testicular mass, epidydmal mass) Admission/Observation Consideration of admission/observation: Escalation of care including admission/observation considered (upon arrival patient was considered for admission) Independent Interpretation I performed an independent interpretation of an: Ultrasound (hydrocele seen on US) Radiology Impression Discussion of test interpretation with radiology: I have reviewed the radiologist's reading. (hydrocele good flow) Independent Historian Clinical information obtained from an independent historian. History obtained from or confirmed by: Spouse and Other (daughter) Prescription Management I considered prescription management with: Antibiotic (considered but not evidence of infection) Discharge Plan Discharge Clinical Impression: Hydrocele Patient Disposition: Home, Self-Care Instructions: Hydrocele (ED) Prescriptions: No Action metoprolol tartrate 100 mg tablet 100 mg PO BID lisinopril 20 mg tablet 20 mg PO BID amlodipine 5 mg tablet 5 mg PO DAILY atorvastatin 40 mg tablet 40 mg PO DAILY aspirin [Adult Aspirin Regimen] 81 mg tablet,delayed release (DR/EC) 81 mg PO DAILY cholecalciferol (vitamin D3) 50 mcg (2,000 unit) capsule 50 mcg PO DAILY docusate sodium 100 mg capsule 100 mg PO BEDTIME Qty: 30 3RF Referrals: Kobi Montoya MD [Physician] - 5 days Osito Mulligan MD [Primary Care Provider] - 1 week
[2023-01-24 08:55] VITALS: BP 178/82; PULSE 60; RESP 16; TEMP 36.3; O2SAT 98; BMI 28.0
[2023-01-24 10:10] VITALS: BP 163/76; PULSE 53; RESP 14; TEMP 36.7; O2SAT 98
== END 2023-01-24 11:38 | disposition home or self-care (01) ==
PROVIDERS: Emergency Provider Emergency Medicine; PCP Internal Medicine
DX: N50.89 Other specified disorders of the male genital organs (principal); N43.3 Hydrocele, unspecified; Z79.899 Other long term (current) drug therapy
CPT/HCPCS: 76870; 99284

== ENCOUNTER 2023-02-15 10:58 | Outpatient (REF) | payer MEDICARE, SELFPAY ==
[2023-02-15 13:21] LABS: Anion Gap 15 (12-20); Blood Urea Nitrogen 19 mg/dL (9-16); Calcium 9.2 mg/dL (8.4-10.2); Carbon Dioxide 24 mmol/L (22-29); Chloride 109 mmol/L (96-108); Estimated Glomerular Filt Rate > 60; Glucose Random 106 mg/dL (60-115); Potassium 4.4 mmol/L (3.3-5.1); Sodium 144 mmol/L (135-145)
[2023-02-15 13:27] LABS: T4 Thyroxine 6.4 ug/dL (4.5-12.0); Thyroid Stimulating Hormone 0.46 uIU/mL (0.32-4.0)
[2023-02-15 13:46] LABS: Folate 15.6 ng/mL (> or = 4.0); Vitamin B12 594 pg/mL (200-900)
== END 2023-02-15 10:59 | disposition home or self-care (01) ==
LOC: HO.LAB 10:58
PROVIDERS: PCP Internal Medicine; Visit Provider Psychiatry & Neurology Neurology
DX: G31.84 Mild cognitive impairment of uncertain or unknown etiology (principal)
CPT/HCPCS: 36415; 80048; 82607; 82746; 84436; 84443

== ENCOUNTER 2023-04-04 13:35 | Emergency (ER) | payer MEDICARE, SELFPAY ==
[2023-04-04 13:39] VITALS: BP 102/63; PULSE 63; RESP 16; TEMP 36.7; O2SAT 98; BMI 26.1
--- NOTE | 2023-04-04 13:39 | ED_ITS ---
HPI - General Adult General Chief complaint: Weakness Stated complaint: Dizziness, weakness Time Seen by Provider: 04/04/23 14:28 Source: patient and family (-Zaida) Mode of arrival: ambulatory Limitations: no limitations History of Present Illness HPI narrative: 73-year-old male who presents emergency department for evaluation of weakness. The patient has a history of celiac disease. He is usually very careful at avoiding gluten but the believes that he ate some food with gluten in it approximately for 5 days prior pain. The patient has been having intermittent lower abdominal pain with frequent episodes of diarrhea for the past 3-4 days. The states that the diarrhea has slowed down his almost resolved. The is not certain if the patient had any bloody bowel movement or dark stools. Today the patient was feeling weak and lightheaded especially when he was trying to stand and walk. The patient started 2 new medications Seroquel and donepezil 1 week prior and she was concerned that these medications may be causing the patient's symptoms. Related Data Home Medications Medication Instructions Recorded Confirmed amlodipine 5 mg tablet 5 mg PO DAILY 11/20/20 06/18/22 aspirin 81 mg tablet,delayed 81 mg PO DAILY 11/20/20 06/18/22 release (Adult Aspirin Regimen) atorvastatin 40 mg tablet 40 mg PO DAILY 11/20/20 06/18/22 cholecalciferol (vitamin D3) 50 50 mcg PO DAILY 11/20/20 06/18/22 mcg (2,000 unit) capsule lisinopril 20 mg tablet 20 mg PO BID 11/20/20 06/18/22 metoprolol tartrate 100 mg tablet 100 mg PO BID 11/20/20 06/18/22 Previous Rx's Medication Instructions Recorded docusate sodium 100 mg capsule 100 mg PO BEDTIME #30 caps 11/20/20 Allergies Allergy/AdvReac Type Severity Reaction Status Date / Time codeine Allergy Unknown mild Verified 06/18/22 10:07 Sulfa (Sulfonamide Allergy Unknown RASH Verified 06/18/22 10:07 Antibiotics) Review of Systems 2 Review of Systems: Yes all other systems are reviewed and are negative [facility] Past Medical History Medical History Family history of heart murmur High cholesterol History of celiac disease Hx of acute arthritis Hx of cardiac murmur Hx of colonic polyps Hx of gout Surgical History Hx of esophagogastroduodenoscopy Hx of hernia repair Family History Family History Father Lung cancer Social History Social History Patient Tobacco Use Status: Never used Tobacco Smoked in Last 30 Days: No Use of substances other than those prescribed or required for medical reasons: No Advance Directives: Yes Advance Directives Information Provided: No Advance Directives on File: No Physical Exam ED Vital Signs: Vital Signs - 24 hr 04/04/23 13:39 04/04/23 15:45 04/04/23 15:48 Temperature 98.1 F Pulse Rate 63 55 58 Respiratory Rate 16 Blood Pressure 102/63 157/73 H 135/68 Pulse Oximetry 98 Oxygen Delivery Method Room Air 04/04/23 15:50 04/04/23 16:12 Temperature Pulse Rate 62 52 Respiratory Rate 16 Blood Pressure 112/60 159/73 H Pulse Oximetry 99 Oxygen Delivery Method Room Air BMI result Body Mass Index 26.1 Exam: General: Awake, alert in no distress Head: Normocephalic, atraumatic EENT: PERRL, Lids normal, sclera normal, conjunctiva normal, nose normal , ears normal, throat without erythema or exudates Neck: Supple, no adenopathy, no trachea midline or C-spine tenderness Lung: breath sounds symmetric, no wheezing, rales or rhonchi Chest: symmetric movement, nontender Heart: regular rate and rhythm, normal S1, S2 no murmurs or rubs Abdomen: soft, non-tender, nondistended, normal bowel sounds Back: no vertebral tenderness, no CVAT Extremities: no deformities, moves all extremities symmetrically Skin: no rashes, no lesion, normal color and warmth Neuro: Awake, alert, oriented, normal speech, cranial nerves intact, moves all extremities symmetrically Psych: Pleasant, cooperative Course Course Course Narrative: RME performed by Sherrill José PA-C. Patient is a 73 year old assigned male at presenting to the emergency department with dizziness and diarrhea. Labs and swabs ordered. Patient placed back in the waiting room pending room availability and results. Medications Administered Discontinued Medications Generic Name Dose Route Start Last Admin Trade Name Loraine PRN Reason Stop Dose Admin Lactated Ringer's 1,000 mls @ 999 mls/hr 04/04/23 15:45 04/04/23 16:12 Lr IV 04/04/23 16:45 999 mls/hr .Q1H1M MARGO Administration Lactated Ringer's 1,000 mls @ 999 mls/hr 04/04/23 15:45 04/04/23 16:12 Lr IV 04/04/23 16:45 999 mls/hr .Q1H1M MARGO Administration Quetiapine Fumarate 50 mg 04/04/23 16:22 04/04/23 16:53 Quetiapine Fumarate 50 Mg Tablet PO 04/04/23 16:23 50 mg ONCE ONE Administration Medical Decision Making Medical Decision Making [facility] Narrative: 73-year-old male history of gout, celiac disease, high cholesterol, memory impairment who presents emergency department for evaluation of weakness, abdominal pain and diarrhea times 3-4 days which has slowed down and almost resolved. Patient does have a history of celiac disease as had similar diarrhea and abdominal pain in the past. Patient's states the patient was very lightheaded, dizzy and weak today therefore she brought him to the emergency department. Patient was also started on Seroquel and donepezil 1 week prior. Patient's vital signs were normal. Physical examination was unremarkable. Following evaluation was ordered on the patient: CBC, CMP, COVID-19, influenza, RSV 15:50 Patient's laboratory evaluation was unremarkable. Patient's exam was unremarkable with no abdominal tenderness. Patient's symptoms are most likely caused by dehydration volume depletion from his severe diarrhea most likely caused by celiac disease. Patient's ordered to get lactated Ringer's x2 L IV. 17:25 The patient's IV is running slowly, the nurse is going to start a 2nd IV so the patient can complete his fluid bolus. Patient's orthostatic vital signs were as follows: Lying down: BP 157/73, heart rate 55 Sitting: BP 135/65, heart rate 58 Standing: BP 112/60, heart rate 62 Patient was symptomatic did feel dizzy and lightheaded. Once the patient completes is fluid bolus of be discharged home. Differential Diagnosis Differential Diagnoses: The differential diagnosis associated with the presentation includes Differential diagnosis includes was not limited to acute viral syndrome, COVID- 19, influenza, RSV, appendicitis, pancreatitis, dehydration, volume depletion, exacerbation celiac disease Admission/Observation Consideration of admission/observation: Escalation of care including admission/observation considered Lab Data MDM Lab Attestation statement: I reviewed the patient's lab results. My interpretation patient's laboratory evaluation is as follows: Low platelet count a [id number], elevated BUN 17, elevated glucose 131, elevated bilirubin 2.7- this is chronic. LFTs and lipase were normal. COVID-19, influenza and RSV were negative 04/04/23 13:52 04/04/23 13:52 Labs: Lab Results 04/04/23 Range/Units 13:52 WBC 7.7 (4.8-10.8) X10*3/uL RBC 5.05 (4.60-5.80) X10*6/uL Hgb 14.0 (14.0-18.0) g/dl Hct 43.1 (42.0-52.0) % MCV 85.3 (80.0-98.0) fL MCH 27.7 (27.0-33.0) pg MCHC 32.5 (31.0-36.0) g/dl RDW 14.0 (11.0-16.0) % Plt Count 152 L (160-400) X10*3/uL MPV 11.3 (9.4-12.4) fL Immature Gran % (Auto) 0.3 (0.0-0.4) % Neut % (Auto) 73.5 H (45-73) % Lymph % (Auto) 13.8 L (20-40) % Chase % (Auto) 9.1 (2-11) % Eos % (Auto) 2.8 (0-4) % Baso % (Auto) 0.5 (0-2) % Lymph # (Auto) 1.1 L (1.2-4.9) X10*3/uL Chase # (Auto) 0.7 (0.1-1.2) X10*3/uL Eos # (Auto) 0.2 (0.0-0.4) X10*3/uL Baso # (Auto) 0.0 (0.0-0.2) X10*3/uL Abs Immat Gran (auto) 0.02 (0.00-0.03) X10*3/uL Absolute Neuts (auto) 5.7 (2.0-8.3) x10*3/uL Absolute Nucleated RBC 0.000 (0.0-0.012) X10*3/uL Nucleated RBC % (auto) 0.0 (0.0-0.2) /100WBC Sodium 141 (135-145) mmol/L Potassium 4.2 (3.3-5.1) mmol/L Chloride 106 (96-108) mmol/L Carbon Dioxide 26 (22-29) mmol/L Anion Gap 13 (12-20) BUN 17 H (9-16) mg/dL Creatinine 0.97 (0.5-1.4) mg/dL Estim Creat Clear Calc 70.0 Estimated GFR > 60 Random Glucose 131 H (60-115) mg/dL Calcium 9.3 (8.4-10.2) mg/dL Magnesium 2.0 (1.6-2.6) mg/dL Total Bilirubin 2.7 H (0.0-1.0) mg/dL AST 20 (5-37) U/L ALT 16 (0-40) U/L Alkaline Phosphatase 103 (39-117) U/L Troponin I High Sens 11.5 (<3.5-35.0) ng/L Total Protein 7.3 (6.5-8.0) g/dL Albumin 4.2 (3.5-5.0) g/dL Lipase 13 (8-78) U/L Influenza Type A (PCR) NEGATIVE (Negative) Influenza Type B (PCR) NEGATIVE (Negative) RSV RNA Qual (PCR) NEGATIVE (Negative) SARS-CoV-2 RNA (RT-PCR) NEGATIVE (Negative) Discharge Plan Discharge Clinical Impression: Acute dehydration, Orthostatic hypotension Diarrhea Qualifiers: Diarrhea type: unspecified type Qualified Code(s): R19.7 - Diarrhea, unspecified Patient Disposition: Home, Self-Care Instructions: Dehydration (ED) Additional Instructions: Your laboratory evaluation was unremarkable Your COVID-19, influenza and RSV were negative Your symptoms are most likely caused by dehydration secondary to flare-up of her celiac disease. Increase your food and fluid intake. Continue taking medications as prescribed by your providers. Insert discharge follow-up return. Prescriptions: No Action metoprolol tartrate 100 mg tablet 100 mg PO BID lisinopril 20 mg tablet 20 mg PO BID amlodipine 5 mg tablet 5 mg PO DAILY atorvastatin 40 mg tablet 40 mg PO DAILY aspirin [Adult Aspirin Regimen] 81 mg tablet,delayed release (DR/EC) 81 mg PO DAILY cholecalciferol (vitamin D3) 50 mcg (2,000 unit) capsule 50 mcg PO DAILY docusate sodium 100 mg capsule 100 mg PO BEDTIME Qty: 30 3RF
--- NOTE | 2023-04-04 13:41 | ECG_ITS ---
Test Reason : WEAKNESS Blood Pressure : / mmHG Vent. Rate : 057 BPM Atrial Rate : 000 BPM P-R Int : 000 ms QRS Dur : 092 ms QT Int : 456 ms P-R-T Axes : 000 006 029 degrees QTc Int : 443 ms Normal sinus rhythm Normal ECG When compared with ECG of 07-OCT-2006 06:51, No significant changes seen Referred By: Sherrill José Electronically Signed By:LISA LUDWIG MD
[2023-04-04 13:57] LABS: MANUAL DIFF FLAG NO
[2023-04-04 13:58] LABS: Basophils Percent Auto 0.5 % (0-2); Eosinophils Absolute Auto 0.2 X10*3/uL (0.0-0.4); Eosinophils Percent Auto 2.8 % (0-4); Hematocrit 43.1 % (42.0-52.0); Imm Gran Abs Auto 0.02 X10*3/uL (0.00-0.03); Imm Gran Pct Auto 0.3 % (0.0-0.4); Lymphocytes Absolute Auto 1.1 X10*3/uL (1.2-4.9); Lymphocytes Percent Auto 13.8 % (20-40); Mean Corpuscular HGB Conc 32.5 g/dl (31.0-36.0); Mean Corpuscular Hemoglobin 27.7 pg (27.0-33.0); Mean Corpuscular Volume 85.3 fL (80.0-98.0); Mean Platelet Volume 11.3 fL (9.4-12.4); Monocytes Absolute Auto 0.7 X10*3/uL (0.1-1.2); Monocytes Percent Auto 9.1 % (2-11); Neutrophils Absolute Auto 5.7 x10*3/uL (2.0-8.3); Neutrophils Percent Auto 73.5 % (45-73); Platelet Count 152 X10*3/uL (160-400); Red Blood Count 5.05 X10*6/uL (4.60-5.80); White Blood Count 7.7 X10*3/uL (4.8-10.8)
[2023-04-04 14:31] LABS: Troponin-I High Sensitivity 11.5 ng/L (<3.5-35.0)
[2023-04-04 14:34] LABS: Influenza A PCR NEGATIVE (Negative); Influenza B PCR NEGATIVE (Negative); Resp Syncy Virus RNA Qual PCR NEGATIVE (Negative); SARS COV2 PCR INHOUSE NEGATIVE (Negative)
[2023-04-04 14:43] LABS: Alanine Aminotransferase 16 U/L (0-40); Albumin Level 4.2 g/dL (3.5-5.0); Alkaline Phosphatase 103 U/L (39-117); Anion Gap 13 (12-20); Aspartate Amino Transferase 20 U/L (5-37); Bilirubin Total 2.7 mg/dL (0.0-1.0); Blood Urea Nitrogen 17 mg/dL (9-16); Calcium 9.3 mg/dL (8.4-10.2); Carbon Dioxide 26 mmol/L (22-29); Chloride 106 mmol/L (96-108); Estimated Glomerular Filt Rate > 60; Glucose Random 131 mg/dL (60-115); Lipase 13 U/L (8-78); Potassium 4.2 mmol/L (3.3-5.1); Sodium 141 mmol/L (135-145); Total Protein 7.3 g/dL (6.5-8.0)
[2023-04-04 15:45] VITALS: BP 157/73; PULSE 55
[2023-04-04 15:48] VITALS: BP 135/68; PULSE 58
[2023-04-04 15:50] VITALS: BP 112/60; PULSE 62
[2023-04-04 16:12] VITALS: BP 159/73; PULSE 52; RESP 16; O2SAT 99
[2023-04-04] MEDS: Lactated Ringers 1,000 ML 999 ML IV ×2 (16:12)
[2023-04-04] MEDS: QUEtiapine Fumarate 50 MG TABLET PO (16:53)
== END 2023-04-04 18:58 | disposition home or self-care (01) ==
PROVIDERS: Physician Assistant Medical; Emergency Provider Emergency Medicine Emergency Medical Services; PCP Internal Medicine
DX: E86.0 Dehydration (principal); I95.1 Orthostatic hypotension; R53.1 Weakness; R19.7 Diarrhea, unspecified; Z20.822 Contact with and (suspected) exposure to COVID-19; Z20.828 Contact with and (suspected) exposure to other viral communicable diseases
CPT/HCPCS: 0241U; 36415; 80053; 83690; 83735; 84484; 85025; 93005; 96360; 96361; 99285; J7120

== ENCOUNTER 2023-05-04 14:03 | Outpatient (REF) | payer MEDICARE, SELFPAY ==
[2023-05-04 14:06] LABS: MANUAL DIFF FLAG NO
[2023-05-04 14:29] LABS: Basophils Percent Auto 0.6 % (0-2); Eosinophils Absolute Auto 0.4 X10*3/uL (0.0-0.4); Eosinophils Percent Auto 6.4 % (0-4); Hematocrit 40.2 % (42.0-52.0); Imm Gran Abs Auto 0.02 X10*3/uL (0.00-0.03); Imm Gran Pct Auto 0.3 % (0.0-0.4); Lymphocytes Absolute Auto 1.6 X10*3/uL (1.2-4.9); Lymphocytes Percent Auto 23.8 % (20-40); Mean Corpuscular HGB Conc 32.3 g/dl (31.0-36.0); Mean Corpuscular Hemoglobin 27.2 pg (27.0-33.0); Mean Corpuscular Volume 84.1 fL (80.0-98.0); Mean Platelet Volume 12.4 fL (9.4-12.4); Monocytes Absolute Auto 0.7 X10*3/uL (0.1-1.2); Monocytes Percent Auto 11.2 % (2-11); Neutrophils Absolute Auto 3.8 x10*3/uL (2.0-8.3); Neutrophils Percent Auto 57.7 % (45-73); Platelet Count 166 X10*3/uL (160-400); Red Blood Count 4.78 X10*6/uL (4.60-5.80); Red Cell Distribution Width 14.2 % (11.0-16.0); White Blood Count 6.6 X10*3/uL (4.8-10.8)
[2023-05-04 14:32] LABS: Appearance Urine Clear; Color Urine Yellow; Glucose Urine UA Negative (Negative); Leukocyte Esterase Urine Negative (Negative); Nitrite Urine Negative (Negative); Specific Gravity - Urine 1.015 (1.005-1.025); UMIC TRIGGER UACC YES; Urine Blood Trace (Negative); Urine Ketones Negative (Negative); Urine Protein Negative (Neg-Trace)
[2023-05-04 14:35] LABS: Bacteria Urine None Seen (None Seen); Hyaline Casts Urine 0-2 /LPF (0-2); Squamous Epithelial Cell Urine 0-2 /HPF (0-2); WBC Urine 0-5 /HPF (0-5)
[2023-05-04 15:01] LABS: PSA,Total (Free>4and<10) 0.82 ng/mL (0.00-4.00)
[2023-05-04 15:11] LABS: Alanine Aminotransferase 14 U/L (0-40); Albumin Level 3.3 g/dL (3.5-5.0); Alkaline Phosphatase 104 U/L (39-117); Anion Gap 14 (12-20); Aspartate Amino Transferase 17 U/L (5-37); Bilirubin Total 1.9 mg/dL (0.0-1.0); Blood Urea Nitrogen 15 mg/dL (9-16); Calcium 9.3 mg/dL (8.4-10.2); Carbon Dioxide 26 mmol/L (22-29); Chloride 107 mmol/L (96-108); Cholesterol 139 mg/dL (<200); Estimated Glomerular Filt Rate > 60; Glucose Fasting 98 mg/dL (60-99); HDL Cholesterol 38 mg/dL (>40); LDL Cholesterol Calculated 84 mg/dL (<100); Potassium 4.1 mmol/L (3.3-5.1); Sodium 143 mmol/L (135-145); Total Protein 6.9 g/dL (6.5-8.0); Triglycerides 85 mg/dL (<150)
== END 2023-05-04 14:04 | disposition home or self-care (01) ==
LOC: HO.LNP 14:03
PROVIDERS: Visit Provider Internal Medicine
DX: Z00.00 Encounter for general adult medical examination without abnormal findings (principal); I10 Essential (primary) hypertension; E78.00 Pure hypercholesterolemia, unspecified; Z12.5 Encounter for screening for malignant neoplasm of prostate
CPT/HCPCS: 80053; 80061; 81001; 84153; 85025

== ENCOUNTER 2023-05-05 14:22 | Outpatient (AMB) | payer MEDICARE, SELFPAY ==
--- NOTE | 2023-05-05 14:31 | A.OFFVIS_ITS ---
Intake Intake Visit Reasons: ER follow up- BI hydroceles Intake Note: New Patient is Present for ER Follow Up Urology Medication: None Antibiotic Allergies: Sulfa Blood Thinners: Aspirin Allergies codeine Allergy (Unknown, Verified 05/05/23 14:33) mild Sulfa (Sulfonamide Antibiotics) Allergy (Unknown, Verified 05/05/23 14:33) RASH HPI HPI Comments History of Present Illness Details Yayo is a pleasant male. He is a patient of Dr. Mulligan. He is seen for the following urologic conditions - large hydroceles Accompanied by his Discussed options for management Given size of hydrocele recommend operative intervention with drain Hydrocele Large right hydrocele Ultrasound 600 cc PFSH Medical History Hx of colonic polyps Hx of gout Hx of acute arthritis History of celiac disease Hx of cardiac murmur Family history of heart murmur High cholesterol Surgical History Hx of hernia repair Hx of esophagogastroduodenoscopy Family History Father Lung cancer Social History Patient Tobacco Use Status: Never used Tobacco Review of Systems Const Denies chills and Denies fever(s) Card Reports no additional complaints and Denies syncope Resp Denies cough GI Denies abdominal pain and Denies heartburn Reports as per HPI and Denies change in libido Neuro Denies syncope Psych Denies change in libido Endo Denies change in libido Physical Exam Const General: cooperative, healthy appearing, comfortable and no acute distress Orientation/consciousness: patient oriented x3 HEENT Face and sinus: Yes normal facial exam Mouth: moist mucous membranes Neck Neck: Yes normal visual inspection, Yes full ROM and Yes trachea midline Chest Chest palpation & inspection: normal inspection of the chest Resp Effort & Inspection: normal respiratory effort, able to speak in complete sentences and no respiratory distress GI Inspection: Yes normal to inspection Back/Spine/Pelvis Cervical Spine: normal cervical lordosis Thoracic/Lumbar Spine: thoracic and lumbar spine normal to inspection Skin General skin exam: no rashes or lesions noted Neuro General: patient oriented x3, gait normal, tone normal and moves all extremities Extrem General: Yes normal to inspection and Yes capillary refill normal Assessment & Plan Assessment & Plan (1) Hydrocele in adult: Code(s): N43.3 - Hydrocele, unspecified Plan Risks, benefits and alternatives to therapy were discussed. These include but are not limited to infection, bleeding, damage to local organs and tissues, need for further interventions. Anesthetic risks regarding cardiac arrhythmia, blood clots, and potential mortality were discussed. The patient understands the typical recovery time and the outpatient nature of the procedure. After consideration of these risks the patient gives full informed consent and they wish to move ahead with the procedure. Right hydrocelectomy with drain Patient Instructions: Imaging studies, laboratory and physical exam results were discussed and reviewed in detail. No major barriers to patient understanding were identified. An opportunity to ask questions regarding the treatment plan was provided. All questions were answered. The patient expressed understanding and agreement with the above treatment plan. The patient is aware they should contact our office by phone for worsening of their current condition or the appearance of new urologic symptoms. Compliance is encouraged with any medications and followup testing that is ordered. It is a privilege to participate in the urologic care of your patient. If you have any questions or concerns regarding treatment for the above conditions, or other urologic issues, please do not hesitate to contact me. The office telephone contact is [phone]. This note is constructed using voice recognition software. While every effort has been made to ensure accuracy marine welder errors may have been included. Yours sincerely, Dr Kobi Montoya MD, [facility] - Urology Providers of Expert, Compassionate Care for the Genitourinary System Coding Level of Care Code New Pt Level 4 (68557) Diagnoses Hydrocele in adult N43.3
== END 2023-05-05 15:07 | disposition home or self-care (01) ==
PROVIDERS: PCP Internal Medicine; Visit Provider Urology
DX: N43.3 Hydrocele, unspecified (principal)
CPT/HCPCS: 99204

== ENCOUNTER → 2023-05-05 14:22 | Outpatient (BNVA) | payer MEDICARE, SELFPAY | PROVIDERS: PCP Internal Medicine; Visit Provider Urology | DX: N43.3 Hydrocele, unspecified (principal) | CPT/HCPCS: 99202 ==

== ENCOUNTER 2023-06-22 15:49 | Outpatient (REF) | payer MEDICARE, SELFPAY ==
[2023-06-22 15:53] LABS: MANUAL DIFF FLAG NO
[2023-06-22 15:58] LABS: Basophils Percent Auto 0.4 % (0-2); Eosinophils Absolute Auto 0.1 X10*3/uL (0.0-0.4); Eosinophils Percent Auto 2.3 % (0-4); Hematocrit 39.8 % (42.0-52.0); Hemoglobin 13.2 g/dl (14.0-18.0); Imm Gran Abs Auto 0.01 X10*3/uL (0.00-0.03); Imm Gran Pct Auto 0.2 % (0.0-0.4); Lymphocytes Percent Auto 17.1 % (20-40); Mean Corpuscular HGB Conc 33.2 g/dl (31.0-36.0); Mean Corpuscular Volume 81.6 fL (80.0-98.0); Mean Platelet Volume 12.5 fL (9.4-12.4); Monocytes Absolute Auto 0.5 X10*3/uL (0.1-1.2); Monocytes Percent Auto 9.7 % (2-11); Neutrophils Absolute Auto 3.9 x10*3/uL (2.0-8.3); Neutrophils Percent Auto 70.3 % (45-73); Platelet Count 153 X10*3/uL (160-400); Red Blood Count 4.88 X10*6/uL (4.60-5.80); Red Cell Distribution Width 14.2 % (11.0-16.0); White Blood Count 5.6 X10*3/uL (4.8-10.8)
[2023-06-22 16:31] LABS: TSH reflex Free T4 0.42 uIU/mL (0.32-4.0)
[2023-06-22 16:44] LABS: Folate 10.6 ng/mL (> or = 4.0); Vitamin B12 879 pg/mL (200-900)
== END 2023-06-22 15:50 | disposition home or self-care (01) ==
LOC: HO.LNP 15:49
PROVIDERS: Visit Provider Internal Medicine
DX: I95.2 Hypotension due to drugs (principal)
CPT/HCPCS: 82607; 82746; 84443; 85025

== ENCOUNTER 2023-06-30 10:07 | Outpatient (AMB) | payer MEDICARE, SELFPAY ==
--- NOTE | 2023-06-30 09:57 | A.OFFVIS_ITS ---
Intake Intake Visit Reasons: H&P Hydrocelectomy Intake Note: Patient presents today for a follow-up Meds- None Allergies to Antibiotic- Sulfa Blood Thinner- None Health Clinician Required: No Allergies codeine Allergy (Unknown, Verified 06/30/23 10:02) mild Sulfa (Sulfonamide Antibiotics) Allergy (Unknown, Verified 06/30/23 10:02) RASH HPI HPI Comments History of Present Illness Details Yayo is a pleasant male. He is a patient of Dr. Mulligan. He is seen for the following urologic conditions - large right hydroceles Telemedicine Evaluation 15 min Consultation D[employer] Tele[employer] Jenna Video attempted Upcoming planned hydrocelectomy Will require drain Procedure discussed with patient and questions answered Hydrocele Large right hydrocele Ultrasound 600 cc [facility] Medical History Hx of colonic polyps Hx of gout Hx of acute arthritis History of celiac disease Hx of cardiac murmur Family history of heart murmur High cholesterol Surgical History Hx of hernia repair Hx of esophagogastroduodenoscopy Family History Father Lung cancer Social History Patient Tobacco Use Status: Never used Tobacco Review of Systems Const All systems reviewed & are unremarkable except as noted in HPI and below Reports no additional complaints Resp Reports no additional complaints GI Reports no additional complaints Reports as per HPI Musc Reports no additional complaints Physical Exam Telemedicine evaluation Appropriate responses Regular breathing rate and rhythm HEENT Head: Yes normal to inspection Ears: hearing grossly normal bilaterally Eyes General: appearance normal, both eyes and all related structures Neck Neck: Yes normal visual inspection Chest Chest palpation & inspection: normal inspection of the chest Resp Effort & Inspection: normal respiratory effort and able to speak in complete sentences Assessment & Plan Assessment & Plan (1) Hydrocele in adult: Code(s): N43.3 - Hydrocele, unspecified Plan Risks, benefits and alternatives to therapy were discussed. These include but are not limited to infection, bleeding, damage to local organs and tissues, need for further interventions. Anesthetic risks regarding cardiac arrhythmia, blood clots, and potential mortality were discussed. The patient understands the typical recovery time and the outpatient nature of the procedure. After consideration of these risks the patient gives full informed consent and they wish to move ahead with the procedure. Right Hydrocele Patient Instructions: Imaging studies, laboratory and physical exam results were discussed and reviewed in detail. No major barriers to patient understanding were identified. An opportunity to ask questions regarding the treatment plan was provided. All questions were answered. The patient expressed understanding and agreement with the above treatment plan. The patient is aware they should contact our office by phone for worsening of their current condition or the appearance of new urologic symptoms. Compliance is encouraged with any medications and followup testing that is ordered. It is a privilege to participate in the urologic care of your patient. If you have any questions or concerns regarding treatment for the above conditions, or other urologic issues, please do not hesitate to contact me. The office telephone contact is [phone]. This note is constructed using voice recognition software. While every effort has been made to ensure accuracy store receiver errors may have been included. Yours sincerely, Dr Kobi Montoya MD, [facility] - Urology Providers of Expert, Compassionate Care for the Genitourinary System Telehealth Telehealth Location of provider rendering services: practice address Location of patient: address on file Patient Identification confirmed using: Name, : Yes Telehealth method: video Patient verbally consented to treatment: Yes Patient verbally consented to billing insurance company: Yes Patient informed of any privacy concerns related to visit: Yes Coding Level of Care Code Tele Est Pt Level 4 (92071) Diagnoses Hydrocele in adult N43.3
== END 2023-06-30 11:04 | disposition home or self-care (01) ==
LOC: HO.HUSH 10:07
PROVIDERS: PCP Internal Medicine; Visit Provider Urology
DX: N43.3 Hydrocele, unspecified (principal)
CPT/HCPCS: 99213

== ENCOUNTER → 2023-06-30 10:07 | Outpatient (BNVA) | payer MEDICARE, SELFPAY | PROVIDERS: PCP Internal Medicine; Visit Provider Urology | DX: K59.00 Constipation, unspecified (principal) ==

== ENCOUNTER 2023-07-15 13:39 | Outpatient (REF) | payer MEDICARE, SELFPAY ==
--- NOTE | ~2023-07-15 | CT_ITS ---
EXAMINATION: CT HEAD WITHOUT CONTRAST CLINICAL INFORMATION: Stroke. COMPARISON: None available. TECHNIQUE: Contiguous axial imaging was performed from the skull base to vertex without intravenous administration of contrast. This CT examination was performed using dose optimization techniques as appropriate, variously including the following: *Automated exposure control. *Adjustment of mA and/or kV according to patient size (this includes techniques or standardized protocols for targeted exams where dose is matched to indication/reason for exam; i.e. extremities or head). *Use of iterative reconstruction technique. DLP: 745 mGy-cm FINDINGS: There is no evidence of acute intracranial hemorrhage or edematous territorial infarction. Hatfield-white matter differentiation is preserved. Scattered and partially confluent hypoattenuation in the periventricular and deep white matter are consistent with mild to moderate microangiopathy. Proportional prominence of the ventricles and sulcal spaces without evidence of obstructive hydrocephalus. No abnormal mass effect or midline shift. No extra-axial fluid collections. No acute soft tissue or osseous abnormalities. Mild mucosal thickening of the paranasal sinuses. The mastoid air cells and middle ear cavities are clear. CT/CT head/brain wo IV con IMPRESSION: 1. No evidence of acute intracranial hemorrhage or edematous territorial infarction. 2. Mild to moderate underlying microangiopathy and generalized cerebral volume loss.
== END 2023-07-15 13:40 | disposition home or self-care (01) ==
LOC: HO.CT 13:39
PROVIDERS: Visit Provider Psychiatry & Neurology Neurology
DX: I63.9 Cerebral infarction, unspecified (principal)
CPT/HCPCS: 70450

== ENCOUNTER 2023-09-17 13:53 | Outpatient (AMB) | payer MEDICARE, SELFPAY ==
--- NOTE | 2023-09-17 13:53 | MHC.OFFVIS ---
Intake Visit Reasons: H&P/Questions on Hydrocelectomy Intake Note: Patient is present for Telephone H&P Follow up Allergies codeine Allergy (Unknown, Verified 09/27/23 06:48) mild Sulfa (Sulfonamide Antibiotics) Allergy (Unknown, Verified 09/27/23 06:48) RASH HPI Comments Details: Yayo is a pleasant male. He is a patient of Dr. Mulligan. He is seen for the following urologic conditions - large right hydroceles Telemedicine Evaluation 15 min Consultation Doximity Jenna Video attempted Upcoming planned hydrocelectomy - right side Will require drain Procedure discussed with patient and questions answered Would prefer sedation with local anesthetic Hydrocele Large right hydrocele Ultrasound 600 cc [facility] Medical History Dementia Orthostatic hypotension Hx of colonic polyps Hx of gout Hx of acute arthritis History of celiac disease Hx of cardiac murmur Family history of heart murmur High cholesterol Surgical History Hx of hernia repair Hx of esophagogastroduodenoscopy Family History Father Lung cancer Social History Patient Tobacco Use Status: Never used Tobacco Advance Directives Information Provided: Yes Advance Directives on File: No Review of Systems Const All systems reviewed & are unremarkable except as noted in HPI and below Reports no additional complaints Resp Reports no additional complaints GI Reports no additional complaints Reports as per HPI Musc Reports no additional complaints Physical Exam Telemedicine evaluation Appropriate responses Regular breathing rate and rhythm HEENT Head: Yes normal to inspection Ears: hearing grossly normal bilaterally Eyes General: appearance normal, both eyes and all related structures Neck Neck: Yes normal visual inspection Chest Chest palpation & inspection: normal inspection of the chest Resp Effort & Inspection: normal respiratory effort and able to speak in complete sentences Telehealth Telehealth Telehealth Platform: [employer] Location of provider rendering services: practice address Location of patient: address on file Patient Identification confirmed using: Name, : Yes Telehealth method: voice only Patient verbally consented to treatment: Yes Patient verbally consented to billing insurance company: Yes Patient informed of any privacy concerns related to visit: Yes Minutes spent on Phone/Video with Pt.: 15 Assessment & Plan Assessment & Plan (1) Hydrocele in adult: Code(s): N43.3 - Hydrocele, unspecified Category: Medical Plan Right hydrocelectomy Risks, benefits and alternatives to therapy were discussed. These include but are not limited to infection, bleeding, damage to local organs and tissues, need for further interventions. Anesthetic risks regarding cardiac arrhythmia, blood clots, and potential mortality were discussed. The patient understands the typical recovery time and the outpatient nature of the procedure. After consideration of these risks the patient gives full informed consent and they wish to move ahead with the procedure. Patient Instructions: Imaging studies, laboratory and physical exam results were discussed and reviewed in detail. No major barriers to patient understanding were identified. An opportunity to ask questions regarding the treatment plan was provided. All questions were answered. The patient expressed understanding and agreement with the above treatment plan. The patient is aware they should contact our office by phone for worsening of their current condition or the appearance of new urologic symptoms. Compliance is encouraged with any medications and followup testing that is ordered. It is a privilege to participate in the urologic care of your patient. If you have any questions or concerns regarding treatment for the above conditions, or other urologic issues, please do not hesitate to contact me. The office telephone contact is [phone]. This note is constructed using voice recognition software. While every effort has been made to ensure accuracy supervisor broadloom errors may have been included. Yours sincerely, Dr Kobi Montoya MD, [facility] - Urology Providers of Expert, Compassionate Care for the Genitourinary System Coding Level of Care Code Tele Est Pt Level 3 (65056) Diagnoses Hydrocele in adult N43.3
== END 2023-09-17 14:18 | disposition home or self-care (01) ==
LOC: HO.HUSH 13:53
PROVIDERS: PCP Internal Medicine; Visit Provider Urology
DX: N43.3 Hydrocele, unspecified (principal)
CPT/HCPCS: 99442

== ENCOUNTER → 2023-09-17 13:53 | Outpatient (BNVA) | payer MEDICARE, SELFPAY | PROVIDERS: PCP Internal Medicine; Visit Provider Urology ==

== ENCOUNTER 2023-09-22 09:28 | Outpatient (AMB) | payer MEDICARE, SELFPAY ==
--- NOTE | 2023-09-22 09:31 | MHC.OFFVIS ---
Vital Signs 09/22/23 09:32 Height 5 ft 10 in Weight 159 lb BMI 22.8 BP 130/70 Blood Pressure Location Lt brachial Position Sitting Pulse 66 Intake Visit Reasons: new patient hypotension Intake Note: New patient dx hypotension per patient bp is all over the place Reed Or Wind Instrument Repairer Required: No Packaging Materials Inspector: Packaging Materials Inspector Present Accompanied by: Spouse Allergies codeine Allergy (Unknown, Verified 09/17/23 13:56) mild Sulfa (Sulfonamide Antibiotics) Allergy (Unknown, Verified 09/17/23 13:56) RASH Medication List - Last Reconciled 09/22/23 by Tk Garrido MD aspirin (Adult Aspirin Regimen) 81 mg PO DAILY atorvastatin 40 mg PO BEDTIME docusate sodium 100 mg PO ONCE PRN donepezil 5 mg PO DAILY haloperidol 0.5 mg PO BID HPI Comments Details: I was consulted to see Yayo in cardiology consultation today for labile blood pressure but mostly low blood pressures causing symptoms. Patient has had symptomatic low blood pressures with near-syncope but no full syncopal episode but 1 fall. Patient is very worried about him. Patient also has cognitive dysfunction which causes him to be not completely compliant with instructions. Patient is not drinking enough fluids. Patient as per the has longstanding history of hypertension was on 3 antihypertensives. But currently his blood pressure medicines have been stopped. Recently because of low blood pressure it seems like he was started on midodrine 5 mg but continued to have problems and then subsequently was increased to twice a day and subsequently had high blood pressures. He was then told to take lisinopril with high blood pressure but that led to low blood pressures again. Currently over the last few weeks he has been off all medications. is been trying to help him push fluids. He has been eating and drinking better. Since then his blood pressures been more stable. Her blood pressure is highly variable. is concerned about how to manage these conditions. Patient comes here today in a wheelchair. However around the house he does walk. [facility] Medical History Hx of colonic polyps Hx of gout Hx of acute arthritis History of celiac disease Hx of cardiac murmur Family history of heart murmur High cholesterol Surgical History Hx of hernia repair Hx of esophagogastroduodenoscopy Family History Father Lung cancer Social History Patient Tobacco Use Status: Never used Tobacco Review of Systems Const Denies chills, Denies daytime sleepiness, Denies fatigue, Denies fever(s), Denies frequent falls, Denies poor appetite, Denies snoring, Denies stops breathing during sleep, Denies weakness, Denies weight gain and Denies weight loss Eyes Denies loss of vision ENT Denies dizziness and Denies hearing loss Card Denies chest pain, Denies claudication, Denies leg edema, Denies lightheadedness, Denies palpitations, Denies dyspnea, Denies dyspnea on exertion and Denies orthopnea Resp Denies cough, Denies excessive phlegm production, Denies dyspnea, Denies dyspnea on exertion, Denies snoring and Denies wheezing GI Denies abdominal pain, Denies hematochezia, Denies change in bowel habits, Denies nausea and Denies vomiting Denies dysuria and Denies urinary frequency Musc Denies arthralgias, Denies muscle weakness, Denies numbness and Denies other (frequent falls) Skin/Breast Denies nail changes and Denies rash Neuro Denies Abnormal speech present, Denies dizziness, Denies frequent falls, Denies loss of vision, Denies memory loss, Denies numbness and Denies weakness Psych Denies depression and Denies memory loss Endo Denies fatigue and Denies palpitations Rasheed/Lymph Reports easy bruising and Reports other (anemia) Aller/Immun Denies wheezing Physical Exam Vital Signs: Last Vital Signs Pulse 66 09/22/23 09:32 BP 130/70 09/22/23 09:32 BMI result Body Mass Index 22.8 Const General: cooperative, comfortable, alert and awake Nutritional Appearance: thin Limitations: wheelchair HEENT Head: Yes normocephalic and Yes atraumatic Neck Neck: Yes trachea midline, Yes supple and Yes no JVD Resp Effort & Inspection: normal respiratory effort Auscultation: clear to auscultation bilaterally Cardio Jugular venous distension: no JVD Palpation: normal PMI Rate: regular rate Rhythm: regular rhythm Heart sounds: S1 normal heart sound present, S2 normal heart sound present, no click, no gallops, no murmurs and no rubs GI Auscultation: normal bowel sounds Skin General skin exam: no rashes or lesions noted Neuro General: no focal motor deficits Speech: No Abnormal speech present Extrem General: Yes no clubbing, cyanosis or edema Assessment & Plan Assessment & Plan (1) Labile blood pressure: Code(s): R09.89 - Other specified symptoms and signs involving the circulatory and respiratory systems Category: Medical Plan: Patient with significantly labile blood pressure with several episodes of low blood pressure with symptoms of lightheadedness and near-syncope. This remains a risk. Attempted with midodrine therapy which led to elevated blood pressure and this was discontinued. Since then patient has accepted increase fluid intake and better dietary intake and blood pressures remained more stable without any medications. 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 Difficulty in managing this was discussed with the . At this point time agree to avoid all medications and just push oral fluid intake and maybe liberalize a little bit of salt intake. Various forms of oral fluid intake was discussed. Goal will be to avoid significant hypotension and related lightheadedness/syncope and falls and injury. Orthostatic precautions were discussed. I think a wide arrange for blood pressure acceptance would be pursued. Systolic blood pressure between 100-150 would be an adequate goal. Advise to monitor blood pressure more regularly. Discussed with patient about role of fluid intake. He showed understanding but given his cognitive dysfunction I am not sure about compliance. However the understands. If this remains an issue and despite adequate oral intake would consider midodrine therapy at a lower dose. This was discussed with the patient and patient's . Nurse visit in 6 weeks. Otherwise will follow up in the clinic if need be. Thank you for allowing me to partake in his care Coding Level of Care Code New Pt Level 4 (98630) Diagnoses Labile blood pressure R09.89
[2023-09-22 09:32] VITALS: BP 130/70; PULSE 66; BMI 22.8
== END 2023-09-22 10:04 | disposition home or self-care (01) ==
PROVIDERS: PCP Internal Medicine; Visit Provider Internal Medicine Cardiovascular Disease
DX: R03.0 Elevated blood-pressure reading, without diagnosis of hypertension (principal)
CPT/HCPCS: 99214

== ENCOUNTER → 2023-09-22 09:28 | Outpatient (BNVA) | payer MEDICARE, SELFPAY | PROVIDERS: PCP Internal Medicine; Visit Provider Internal Medicine Cardiovascular Disease | DX: R09.89 Other specified symptoms and signs involving the circulatory and respiratory systems (principal) | CPT/HCPCS: 99212 ==

== ENCOUNTER 2023-09-27 06:27 | Day surgery (SDC) | payer MEDICARE, SELFPAY ==
[2023-09-23 10:32] VITALS: BMI 22.8
--- NOTE | 2023-09-24 09:57 | HO.ANESPROP2 ---
Documented by User: Luz Corbin NP 09/24/23 10:01 HPI - Anesthesia Eval Consult details Narrative: 73yo M for Hydrocele Repair with drainage Medically cleared by PCP 09/22/23 Cardiology visit for hypotension. Encouraged adequate fluid and dietary intake. PRN f/u. PMFSH Active Problems Active Problems: All Active Problems Labile blood pressure (Acute) Hydrocele in adult (Acute) Osteoarthritis of knees, bilateral (Acute) Past Medical History Medical History Dementia Orthostatic hypotension Hx of colonic polyps Hx of gout Hx of acute arthritis History of celiac disease Hx of cardiac murmur Family history of heart murmur High cholesterol Family History Family History Father Lung cancer Family history of problems with anesthesia: No Surgical History Surgical History Hx of hernia repair Hx of esophagogastroduodenoscopy History of Problems with Anesthesia: No Social History Social History Patient Tobacco Use Status: Never used Tobacco Advance Directives Information Provided: Yes Advance Directives on File: No Meds Allergies Allergy/AdvReac Type Severity Reaction Status Date / Time codeine Allergy Unknown mild Verified 09/27/23 06:48 Sulfa (Sulfonamide Allergy Unknown RASH Verified 09/27/23 06:48 Antibiotics) Home Medications ?Medication ?Instructions ?Recorded ?Confirmed ?Last Taken ?Type atorvastatin 40 mg tablet 40 mg PO BEDTIME 06/30/23 09/23/23 Unknown History docusate sodium 100 mg capsule 100 mg PO DAILY PRN Constipation 06/30/23 09/23/23 Unknown History donepezil 5 mg tablet 5 mg PO DAILY 06/30/23 09/23/23 09/27/23 06:00 History aspirin 81 mg tablet,delayed 81 mg PO DAILY 09/22/23 09/23/23 09/13/23 History release (Adult Aspirin Regimen) haloperidol 0.5 mg tablet 0.5 mg PO BID 09/22/23 09/23/23 Unknown History Exam Height,Weight and Vital Signs: Height 5 ft 10 in Weight 72.121 kg Pertinent Lab Results Pertinent Lab Results: Laboratory Tests 05/04/23 06/22/23 07:15 11:15 WBC 5.6 Hgb 13.2 L Hct 39.8 L Plt Count 153 L Sodium 143 Potassium 4.1 Chloride 107 Carbon Dioxide 26 BUN 15 Creatinine 0.96 Narrative Narrative: EKG 05/2023 SB @ 50 Assessment and Plan Assessment Anesthesia Assessment: Chart Reviewed Final Anesthetic Review Family History of Problems with Anesthesia: No History of Problems with Anesthesia: No Documented by User: Harriett Galindo MD 09/27/23 07:53 PMFSH Past Medical History Medical History Dementia Orthostatic hypotension Hx of colonic polyps Hx of gout Hx of acute arthritis History of celiac disease Hx of cardiac murmur Family history of heart murmur High cholesterol Family History Family History Father Lung cancer Surgical History Surgical History Hx of hernia repair Hx of esophagogastroduodenoscopy Social History Social History Patient Tobacco Use Status: Never used Tobacco Advance Directives Information Provided: Yes Advance Directives on File: No Meds Allergies Allergy/AdvReac Type Severity Reaction Status Date / Time codeine Allergy Unknown mild Verified 09/27/23 06:48 Sulfa (Sulfonamide Allergy Unknown RASH Verified 09/27/23 06:48 Antibiotics) Home Medications ?Medication ?Instructions ?Recorded ?Confirmed ?Last Taken ?Type atorvastatin 40 mg tablet 40 mg PO BEDTIME 06/30/23 09/23/23 Unknown History docusate sodium 100 mg capsule 100 mg PO DAILY PRN Constipation 06/30/23 09/23/23 Unknown History donepezil 5 mg tablet 5 mg PO DAILY 06/30/23 09/23/23 09/27/23 06:00 History aspirin 81 mg tablet,delayed 81 mg PO DAILY 09/22/23 09/23/23 09/13/23 History release (Adult Aspirin Regimen) haloperidol 0.5 mg tablet 0.5 mg PO BID 09/22/23 09/23/23 Unknown History Exam Airway Mallampati Class: III TM Dist: >3cm Neck ROM: Limited Loose/Missing/Broken Teeth: No Heart: RRR Lungs: CTA Assessment and Plan Assessment Anesthesia Assessment: Anesthesia Plan Discussed Final Anesthetic Review NPO: Yes ASA Class: III Final Preanesthetic Review: Meds/Allgs Chart Reviewed, Consent Obtained/Reviewed and Anes Risks/Benef Reviewed Patient Risk: Intermediate Procedure Risk: Low Anesthetic Plan Anesthetic Plan: MAC: Disposition: Standard PACU
[2023-09-27] VITALS (7 sets, daily range): BP systolic 116–172; BP diastolic 63–85; PULSE 54–70; RESP 15–17; TEMP 36.3–36.7; O2SAT 99–100; BMI 22.2
[2023-09-27] MEDS: Lactated Ringers 1,000 ML 100 ML IVCONT (07:21)
--- NOTE | 2023-09-27 07:54 | MHC.SHP ---
Pre-Procedural Eval Section A - 24 Hr Update-Section A only Date of Service: 09/27/23 The patient is an INPATIENT: No Changes since office visit: No Cold of Flu in the past 2 weeks, No New Medical Problems, No Changes in Medication and No Patient answered all questions The patient has been examined within 24 hours of the surgical procedure. The History & Physical has been completed within 30 days and I have reviewed it.: Yes Section B - Complete if H&P > 30 days Chief Complaint: Hydrocele, unspecified Allergies: Allergies Allergy/AdvReac Type Severity Reaction Status Date / Time codeine Allergy Unknown mild Verified 09/27/23 06:48 Sulfa (Sulfonamide Allergy Unknown RASH Verified 09/27/23 06:48 Antibiotics) Plan Diagnosis/Plan: Unchanged (Right hydrocelectomy sedation and local anesthetic) I have reviewed the history and physical and performed a pertinent physical examination on my patient. No changes have occurred unless specified. Time Spent With Patient Time: Total time managing care of this patient today ____ minutes.
--- NOTE | 2023-10-05 15:22 | W.PM.OPN ---
Operative Note Operative Note Date of Service: 09/27/23 Narrative: PreOperative Diagnosis: Right large hydrocele Post Operative Diagnosis: Right large hydrocele Procedure: Hydrocelectomy Surgeon: Dr Kobi Montoya Anesthesia: General Indications for procedure: Right large hydrocele with persistent discomfort Procedure: After informed consent was verified the patient was brought to the operating room and placed in a supine position. Anesthesia was administered per protocol. Patient was appropriately shaved and genitals were prepped and draped in sterile fashion. Safety pause time-out was performed. Antibiotics being given. Local anesthetic was infiltrated under the skin in a horizontal fashion on the scrotum. Skin incision was made using a blade through the subdermal layer. The tunica around the testicle was elevated and dissected free from surrounding tissue. The avascular plane around the tunica was entered and using a wet sponge blunt dissection was performed. Any small bleeding perforators were cauterized. The testicle was delivered out of the scrotum and opened in a longitudinal fashion.. Fluid was removed - significant 600 cc removal. The testicle sac was inverted. Excess thickened sac was dissected and removed using a LigaSure cautery instrument to minimize porst procedure bleeding. A bottle neck procedure was performed to approximate edges using a running 3-0 Vicryl suture. Skin edges of the tunica were cauterized carefully in order to try to minimize postprocedure hematoma. Small accessory appendices were removed from the head of epididymis. The testicle with resected sac was placed back into a dependent portion of the scrotum. Drain placed through dependent portion of scrotum. Overlying skin fascia layer was closed with a running 3-0 Vicryl suture. Skin was closed with interrupted 4-0 chromic sutures. Drain was sewn into soft sponge. Soft fluff sponges were placed with mesh pants as dressing. Local anesthetic was placed in inguinal cord for post procedure pain relief. Patient tolerated procedure well was extubated in operating room transferred in stable condition to the recovery area Pathology: Hydrocele sac Drains: yes
== END 2023-09-27 11:12 | disposition home or self-care (01) ==
PROVIDERS: PCP Internal Medicine; Visit Provider Urology
PROC: (CPT 55060; principal; 2023-09-27 08:20)
DX: N43.3 Hydrocele, unspecified (principal); E78.00 Pure hypercholesterolemia, unspecified; Z79.899 Other long term (current) drug therapy; Z88.2 Allergy status to sulfonamides; Z88.5 Allergy status to narcotic agent
CPT/HCPCS: 55040; 88302; J0131; J0690; J2704; J2795; J3010

== ENCOUNTER → 2023-09-27 06:27 | Outpatient (BNV) | payer MEDICARE, SELFPAY | PROVIDERS: PCP Internal Medicine; Visit Provider Urology | DX: N43.3 Hydrocele, unspecified (principal) | CPT/HCPCS: 55500 ==

== ENCOUNTER 2023-10-14 11:40 | Outpatient (REF) | payer MEDICARE, SELFPAY ==
[2023-10-14 14:04] LABS: Alanine Aminotransferase 23 U/L (0-40); Alkaline Phosphatase 86 U/L (39-117); Aspartate Amino Transferase 22 U/L (5-37); Bilirubin Direct 0.7 mg/dL (0.0-0.5); Bilirubin Total 2.2 mg/dL (0.0-1.0); Cholesterol 122 mg/dL (<200); HDL Cholesterol 48 mg/dL (>40); LDL Cholesterol Calculated 62 mg/dL (<100); Total Protein 6.8 g/dL (6.5-8.0); Triglycerides 64 mg/dL (<150)
== END 2023-10-14 11:41 | disposition home or self-care (01) ==
LOC: HO.LAB 11:40
PROVIDERS: PCP Internal Medicine; Visit Provider Internal Medicine
DX: E78.00 Pure hypercholesterolemia, unspecified (principal)
CPT/HCPCS: 36415; 80061; 80076

== ENCOUNTER 2023-10-27 10:37 | Outpatient (AMB) | payer MEDICARE, SELFPAY ==
--- NOTE | 2023-10-27 10:39 | A.OFFVIS_ITS ---
Intake Visit Reasons: hydrocele post op Intake Note: Patient presents today for a follow-up on Hydrocele Post Op Meds- None Allergies to Antibiotic- Sulfa Blood Thinner- None Mail Opener Required: No Accompanied by: Self / Same As Patient Allergies codeine Allergy (Unknown, Verified 10/27/23 10:41) mild Sulfa (Sulfonamide Antibiotics) Allergy (Unknown, Verified 10/27/23 10:41) RASH HPI Comments Details: Yayo is a pleasant male. He is a patient of Dr. Mulligan. He is seen for the following urologic conditions - large right hydroceles Successful right hydrocele Healing well Do have concerns about left hydrocele It is 1/3 the size Review in 6 months for possible drainage in office Hydrocele Large right hydrocele Ultrasound 600 cc [facility] Medical History Dementia Orthostatic hypotension Hx of colonic polyps Hx of gout Hx of acute arthritis History of celiac disease Hx of cardiac murmur Family history of heart murmur High cholesterol Surgical History Hx of hernia repair Hx of esophagogastroduodenoscopy Family History Father Lung cancer Social History Patient Tobacco Use Status: Never used Tobacco Review of Systems Const Denies chills and Denies fever(s) Card Reports no additional complaints and Denies syncope Resp Denies cough GI Denies abdominal pain and Denies heartburn Reports as per HPI and Denies change in libido Neuro Denies syncope Psych Denies change in libido Endo Denies change in libido Physical Exam Const General: cooperative, healthy appearing, comfortable and no acute distress Orientation/consciousness: patient oriented x3 HEENT Face and sinus: Yes normal facial exam Mouth: moist mucous membranes Neck Neck: Yes normal visual inspection, Yes full ROM and Yes trachea midline Chest Chest palpation & inspection: normal inspection of the chest Resp Effort & Inspection: normal respiratory effort, able to speak in complete sentences and no respiratory distress GI Inspection: Yes normal to inspection Back/Spine/Pelvis Cervical Spine: normal cervical lordosis Thoracic/Lumbar Spine: thoracic and lumbar spine normal to inspection Skin General skin exam: no rashes or lesions noted Neuro General: patient oriented x3, gait normal, tone normal and moves all extremities Extrem General: Yes normal to inspection and Yes capillary refill normal Assessment & Plan Assessment & Plan (1) Hydrocele in adult: Code(s): N43.3 - Hydrocele, unspecified Category: Medical Plan Six-month follow-up Patient Instructions: Imaging studies, laboratory and physical exam results were discussed and reviewed in detail. No major barriers to patient understanding were identified. An opportunity to ask questions regarding the treatment plan was provided. All questions were answered. The patient expressed understanding and agreement with the above treatment plan. The patient is aware they should contact our office by phone for worsening of their current condition or the appearance of new urologic symptoms. Compliance is encouraged with any medications and followup testing that is ordered. It is a privilege to participate in the urologic care of your patient. If you have any questions or concerns regarding treatment for the above conditions, or other urologic issues, please do not hesitate to contact me. The office telephone contact is [phone]. This note is constructed using voice recognition software. While every effort has been made to ensure accuracy trailer body assembler errors may have been included. Yours sincerely, Dr Kobi Montoya MD, [facility] - Urology Providers of Expert, Compassionate Care for the Genitourinary System Coding Level of Care Code Global (14359) Diagnoses Hydrocele in adult N43.3
== END 2023-10-27 11:09 | disposition home or self-care (01) ==
PROVIDERS: PCP Internal Medicine; Visit Provider Urology
DX: N43.3 Hydrocele, unspecified (principal)
CPT/HCPCS: 99024

== ENCOUNTER → 2023-10-27 10:37 | Outpatient (BNVA) | payer MEDICARE, SELFPAY | PROVIDERS: PCP Internal Medicine; Visit Provider Urology | DX: N43.3 Hydrocele, unspecified (principal) | CPT/HCPCS: 99212 ==

== ENCOUNTER → 2023-11-09 14:57 | Outpatient (BNVA) | payer MEDICARE, SELFPAY | PROVIDERS: PCP Internal Medicine; Visit Provider Internal Medicine Cardiovascular Disease ==

== ENCOUNTER 2024-04-27 10:27 | Outpatient (AMB) | payer MEDICARE, SELFPAY ==
--- NOTE | 2024-04-27 10:28 | MHC.OFFVIS ---
Intake Visit Reasons: 6m follow up Intake Note: Patient is present for 6M F/U Urology Medication:NONE Antibiotic Allergy:SCOTT;FA Blood Thinner:ASPIRIN [facility] Nurse Required: No Allergies codeine Allergy (Unknown, Verified 04/27/24 10:28) mild Sulfa (Sulfonamide Antibiotics) Allergy (Unknown, Verified 04/27/24 10:28) RASH HPI Comments Details: Yayo is a pleasant male. He is a patient of Dr. Mulligan. He is seen for the following urologic conditions - large right hydrocele Telemedicine Evaluation 15 min Consultation Doxim[employer] Jenna Video Spoke with Right side is still significantly improved Would like to move ahead with hydrocele drainage in 6 months on left side Will be scheduled Do have concerns about left hydrocele It is 1/3 the size Review in 6 months for possible drainage in office Hydrocele Large right hydrocele Ultrasound 600 cc [facility] Medical History Dementia Orthostatic hypotension Hx of colonic polyps Hx of gout Hx of acute arthritis History of celiac disease Hx of cardiac murmur Family history of heart murmur High cholesterol Surgical History Hx of hernia repair Hx of esophagogastroduodenoscopy Family History Father Lung cancer Social History Patient Tobacco Use Status: Never used Tobacco Review of Systems Const All systems reviewed & are unremarkable except as noted in HPI and below Reports no additional complaints Resp Reports no additional complaints GI Reports no additional complaints Reports as per HPI Musc Reports no additional complaints Physical Exam Telemedicine evaluation Appropriate responses Regular breathing rate and rhythm HEENT Head: Yes normal to inspection Ears: hearing grossly normal bilaterally Eyes General: appearance normal, both eyes and all related structures Neck Neck: Yes normal visual inspection Chest Chest palpation & inspection: normal inspection of the chest Resp Effort & Inspection: normal respiratory effort and able to speak in complete sentences Telehealth Telehealth Telehealth Platform: [employer] Location of provider rendering services: practice address Location of patient: address on file Patient Identification confirmed using: Name, : Yes Telehealth method: video Patient verbally consented to treatment: Yes Patient verbally consented to billing insurance company: Yes Patient informed of any privacy concerns related to visit: Yes Minutes spent on Phone/Video with Pt.: 15 Assessment & Plan Assessment & Plan (1) Hydrocele in adult: Code(s): N43.3 - Hydrocele, unspecified Category: Medical Plan Plan left-sided hydrocele drainage six-month Risks, benefits and alternatives to therapy were discussed. These include but are not limited to infection, bleeding, damage to local organs and tissues, need for further interventions. Anesthetic risks regarding cardiac arrhythmia, blood clots, and potential mortality were discussed. The patient understands the typical recovery time and the outpatient nature of the procedure. After consideration of these risks the patient gives full informed consent and they wish to move ahead with the procedure. Patient Instructions: Imaging studies, laboratory and physical exam results were discussed and reviewed in detail. No major barriers to patient understanding were identified. An opportunity to ask questions regarding the treatment plan was provided. All questions were answered. The patient expressed understanding and agreement with the above treatment plan. The patient is aware they should contact our office by phone for worsening of their current condition or the appearance of new urologic symptoms. Compliance is encouraged with any medications and followup testing that is ordered. It is a privilege to participate in the urologic care of your patient. If you have any questions or concerns regarding treatment for the above conditions, or other urologic issues, please do not hesitate to contact me. The office telephone contact is [phone]. This note is constructed using voice recognition software. While every effort has been made to ensure accuracy ssrs report developer errors may have been included. Yours sincerely, Dr Kobi Montoya MD, [facility] - Urology Providers of Expert, Compassionate Care for the Genitourinary System Coding Level of Care Code Tele Est Pt Level 4 (65549) Diagnoses Hydrocele in adult N43.3
== END 2024-04-27 13:43 | disposition home or self-care (01) ==
LOC: HO.HUSH 10:27
PROVIDERS: PCP Internal Medicine; Visit Provider Urology
DX: N43.3 Hydrocele, unspecified (principal)
CPT/HCPCS: 99214

== ENCOUNTER 2024-05-19 12:06 | Outpatient (REF) | payer MEDICARE, SELFPAY ==
[2024-05-19 13:03] LABS: MANUAL DIFF FLAG NO
[2024-05-19 13:06] LABS: Basophils Absolute Auto 0.1 X10*3/uL (0.0-0.2); Basophils Percent Auto 0.9 % (0-2); Eosinophils Absolute Auto 0.7 X10*3/uL (0.0-0.4); Eosinophils Percent Auto 11.3 % (0-4); Hematocrit 37.9 % (42.0-52.0); Hemoglobin 12.3 g/dl (14.0-18.0); Imm Gran Abs Auto 0.01 X10*3/uL (0.00-0.03); Imm Gran Pct Auto 0.2 % (0.0-0.4); Lymphocytes Absolute Auto 1.3 X10*3/uL (1.2-4.9); Lymphocytes Percent Auto 20.6 % (20-40); Mean Corpuscular HGB Conc 32.5 g/dl (31.0-36.0); Mean Corpuscular Hemoglobin 28.1 pg (27.0-33.0); Mean Corpuscular Volume 86.5 fL (80.0-98.0); Mean Platelet Volume 11.7 fL (9.4-12.4); Monocytes Absolute Auto 0.6 X10*3/uL (0.1-1.2); Monocytes Percent Auto 9.6 % (2-11); Neutrophils Absolute Auto 3.7 x10*3/uL (2.0-8.3); Neutrophils Percent Auto 57.4 % (45-73); Platelet Count 157 X10*3/uL (160-400); Red Blood Count 4.38 X10*6/uL (4.60-5.80); White Blood Count 6.4 X10*3/uL (4.8-10.8)
[2024-05-19 13:15] LABS: Alanine Aminotransferase 8 U/L (0-40); Albumin Level 3.8 g/dL (3.5-5.0); Alkaline Phosphatase 103 U/L (39-117); Anion Gap 10 (12-20); Aspartate Amino Transferase 30 U/L (5-37); Bilirubin Total 1.1 mg/dL (0.0-1.0); Blood Urea Nitrogen 24 mg/dL (9-16); Calcium 9.1 mg/dL (8.4-10.2); Carbon Dioxide 31 mmol/L (22-29); Chloride 105 mmol/L (96-108); Cholesterol 129 mg/dL (<200); Estimated Glomerular Filt Rate > 60; Glucose Fasting 95 mg/dL (60-99); HDL Cholesterol 43 mg/dL (>40); LDL Cholesterol Calculated 76 mg/dL (<100); Potassium 3.4 mmol/L (3.3-5.1); Sodium 143 mmol/L (135-145); Total Protein 6.8 g/dL (6.5-8.0); Triglycerides 54 mg/dL (<150)
[2024-05-19 13:49] LABS: PSA,Total (Free>4and<10) 0.59 ng/mL (0.00-4.00)
== END 2024-05-19 12:07 | disposition home or self-care (01) ==
LOC: HO.10HDL 12:06
PROVIDERS: Visit Provider Internal Medicine
DX: Z00.00 Encounter for general adult medical examination without abnormal findings (principal); Z12.5 Encounter for screening for malignant neoplasm of prostate; E78.00 Pure hypercholesterolemia, unspecified; I10 Essential (primary) hypertension
CPT/HCPCS: 36415; 80053; 80061; 84153; 85025

== ENCOUNTER → 2024-06-30 12:50 | Outpatient (REF) | payer MEDICARE, SELFPAY | LOC: HO.CARD 12:50 | PROVIDERS: PCP Internal Medicine; Visit Provider Internal Medicine | DX: I35.0 Nonrheumatic aortic (valve) stenosis (principal) ==

== ENCOUNTER → 2024-06-30 12:56 | Outpatient (BNV) | payer MEDICARE, MEDICAID, SELFPAY | PROVIDERS: PCP Internal Medicine; Visit Provider Internal Medicine Cardiovascular Disease | DX: I35.0 Nonrheumatic aortic (valve) stenosis (principal) | CPT/HCPCS: 93306 ==

== ENCOUNTER 2024-08-31 13:13 | Outpatient (AMB) | payer MEDICARE, MEDICAID, SELFPAY ==
--- NOTE | 2024-08-31 13:15 | A.OFFVIS_ITS ---
Vital Signs 08/31/24 13:17 Height 5 ft 10 in BMI Reason not done Patient refused/unable BP 140/66 H Blood Pressure Location Lt brachial Position Sitting Pulse 69 Intake Visit Reasons: EKG Echo f/u Intake Note: 1 year follow-up after echo with ekg feelng good Long Term Care Phlebotomist Required: No Allergies codeine Allergy (Unknown, Verified 04/27/24 10:28) mild Sulfa (Sulfonamide Antibiotics) Allergy (Unknown, Verified 04/27/24 10:28) RASH Medication List - Last Reconciled 08/31/24 by Tk Garrido MD aspirin (Adult Aspirin Regimen) 81 mg PO DAILY atorvastatin 40 mg PO BEDTIME carbidopa-levodopa 25-100 mg 1 tab PO TID haloperidol 0.5 mg PO BID sertraline 50 mg PO DAILY HPI Comments Details: Yayo was advised for cardiology follow-up today after recent echocardiogram showed moderate to severe aortic stenosis. Patient presents here with his in a wheelchair. As per the he was got progressive cognitive dysfunction related to dementia and also has very limited exercise activity due to Parkinson's disease. He denies any obvious chest pain or shortness of breath. does not think he is having any cardiac symptoms at this point time. [facility] Medical History (Updated 08/31/24 @ 13:45 by Tk Garrido MD) Aortic stenosis Dementia Orthostatic hypotension Hx of colonic polyps Hx of gout Hx of acute arthritis History of celiac disease Hx of cardiac murmur Family history of heart murmur High cholesterol Surgical History Hx of hernia repair Hx of esophagogastroduodenoscopy Family History Father Lung cancer Social History Patient Tobacco Use Status: Never used Tobacco Review of Systems Const Denies chills, Denies fatigue, Denies fever(s), Denies frequent falls, Denies weakness, Denies weight gain and Denies weight loss ENT Denies dizziness Card Denies chest pain, Denies leg edema, Denies lightheadedness, Denies palpitations, Denies dyspnea, Denies dyspnea on exertion, Denies orthopnea and Denies other (loss of consciousness) Resp Denies cough, Denies dyspnea and Denies dyspnea on exertion GI Denies hematochezia and Denies change in stool character Musc Denies abnormal gait, Denies muscle weakness, Denies numbness, Denies radiating pain into limb and Denies tingling Neuro Denies Abnormal speech present, Denies abnormal gait, Denies dizziness, Denies frequent falls, Denies numbness, Denies tingling and Denies weakness Endo Denies fatigue and Denies palpitations Physical Exam Vital Signs: Last Vital Signs Pulse 69 08/31/24 13:17 BP 140/66 H 08/31/24 13:17 Const General: cooperative, comfortable, alert and awake Nutritional Appearance: thin Limitations: wheelchair HEENT Head: Yes normocephalic and Yes atraumatic Neck Neck: Yes trachea midline, Yes supple and Yes no JVD Resp Effort & Inspection: normal respiratory effort Auscultation: clear to auscultation bilaterally Cardio Jugular venous distension: no JVD Palpation: normal PMI Rate: regular rate Rhythm: regular rhythm Heart sounds: S1 normal heart sound present, S2 normal heart sound present, no click, no gallops, Murmur heart sound present systolic late, decrescendo and crescendo and no rubs GI Auscultation: normal bowel sounds Skin General skin exam: no rashes or lesions noted Neuro General: no focal motor deficits Speech: No Abnormal speech present Extrem General: Yes no clubbing, cyanosis or edema Office Procedures EKG Details: EKG shows normal sinus rhythm with poor R-wave progression due to lead placement with baseline variation [id number]-[id number], Complete Assessment & Plan Assessment & Plan (1) Aortic stenosis: Code(s): I35.0 - Nonrheumatic aortic (valve) stenosis Category: Medical Plan: Aortic stenosis which is moderate to severe in this elderly gentleman but with significant cognitive dysfunction significant physical disability due to Parkinson's, currently wheelchair-bound. At this point time he also has no symptoms with his current activity level but could be underestimated. He does not moderate to severe aortic stenosis and discussed with the the pathophysiology of aortic stenosis then gradually usually leading to progressive aortic stenosis leading to severe aortic stenosis. Possible cardiac outcomes associated severe aortic stenosis were discussed. However given that his significant cognitive as well as physical in capacity I do not think he would be a good candidate for any intervention of the aortic valve. This was discussed with the and she was agreeable. At this point time she was discussed with her kids as well. Will follow up in the clinic if need be. Thank you for allowing me to partake in his care Coding Level of Care Code Est Pt Level 4 (10845) Complex EM visit Add On G2211 Diagnoses Aortic stenosis I35.0 CPT Codes EKG - CPT: 68196-[id number], Complete ([id number])
[2024-08-31 13:17] VITALS: BP 140/66; PULSE 69
--- OUTSIDE RECORDS SUMMARY | 2024-08-31 15:56 | XMS_ITS ---
Author Organization [facility] Address [address] [address] Care Team Providers Care Elastic Attacher Overlock Name Role Phone Osito Mulligan Primary Care Provider Unavailab PATTI Neves Unavailable [phone] REASON FOR VISIT Insurance Denial Encounters Encounter Location Date Provider Diagnosis [facility] [address] [address] 03/10/2023 PATTI LEI Plan Of Treatment No Information Progress Notes * Yayo RAYGOZA MDOB: [birth year] (73 yo M)Acc No.[id number]:03/10/2023 Patient:?Yayo Raygoza :1950???Age:73 Y???Sex:Male Phone: Address:[place] [address] * true * Date:? Generated for Malcomi carmen/Titus/eTransmitting on:?08/31/2024 03:56 PM EDT
--- OUTSIDE RECORDS SUMMARY | 2024-08-31 15:57 | XMS_ITS | Patient Health Record ---
Author Organization Osito Mulligan MD Address [address] [place], [place] [id number] Care Team Providers Care Pail Tester Name Role Phone Osito Mulligan Primary Care Provider [phone] Allergies Allergen (clinical drug ingredient) Drug/Non Drug Allergy documented on EMR Reaction Allergy Type Onset Date Status codeine Codeine Sulfate n/v Drug Allergy A ctive sulfamethoxazole / trimethoprim Bactrim DS rash Drug Allergy Active Results Component Value Reference Range Notes Pathology Reviewed date:09/28/2023 06:37:32 PM Interpretation: Performing Lab:[facility], [address] [place] [phone] Notes/Report: ---- Name: Yayo Rodrigues Age/Sex: 73/M : 1950 Unit#: [id number] Attend Dr: Kobi Montoya MD Re09/27/23 Status : [facility] Location: [facility] Disch: ---- SPEC : [id number] REC STATUS: ELSY HAY NUM: [id number] VIDYA: 09/27/[address]: Kobi Montoya MD ENTERED: 09/27/23 40 SP TYPE: Surgical OTHR DR: Osito Mulligan MD ORDERED: Gross Micro L2 Diagnosis Hydrocele, excision: Fragments of fibromembranous tissue with focal mesothelial lining consistent with hydrocele. Clinical History Hydrocele Microscopic Description Microscopic sections reviewed. Material Received Hydrocele Gross Description Received in formalin labeled ?hydrocele? are 4 smooth and shaggy, benjamin, pink-purple portions of focally cauterize d fibromembranous tissue ranging from 1.5-4.0 cm in greatest dimension and aggregating 7.0 x 4.5 cm ranging from thin and delicate to 0.25 cm in thickness with attached fibrous tis gutierrez. Sectioning reveals edematous, thin and delicate benjamin-pink fibromembranous tiss ue. Information Coordinator sections are submitted in a cassette labeled A1. CEDS Copies To: Kobi Montoya MD [address] [place] [address] Dr. Martha foote [address] [place] [address] Osito Mulligan MD [address] [place] [address] [address] [place] [address] ---- Signed (signature on file) Татьяна Malin MD 09/28/23 1248 ---- END OF REPORT Liver Panel Reviewed date:10/14/2023 05:04:43 PM Interpretation: Performing Lab:[facility], [address] [place] [phone] Notes/Report: Bilirubin Total 2.2 0.0-1.0 mg/dL Bilirubin Direct 0.7 0.0-0.5 mg/dL Aspartate Amino Transferase 22 5-37 U/L Alanine Aminotransferase 23 0-40 U/L Total Protein 6.8 6.5-8.0 g/dL Albumin Level 4.0 3.5-5.0 g/dL Alkaline Phosphatase 86 39-117 U/L Lipid Panel Reviewed date:10/14/2023 05:07:34 PM Interpretation: Performing Lab:[facility], [address] [place] [phone] Notes/Report: Triglycerides 64 <150 mg/dL Desirable Triglyceride: less than 150 mg/dL Borderline High Triglyceride 150-199 mg/dL High Triglyceride: 200-499 mg/dL Very High Triglyceride: greater than or equal to 5OO mg/dL Cholesterol 122 <200 mg/dL Desirable Cholesterol: less than 200 mg/dL Borderline High Cholesterol: 200-239 mg/dL High Cholesterol: greater than 239 mg/dL LDL Cholesterol Calculated 62 <100 mg/dL Desirable LDL: less than 100 mg/dL Near Optimal/Above Optimal LDL: 110-129 mg/dL Borderline High LDL: 130-159 mg/dL High LDL: 160-189 mg/dL Very High LDL: greater than or equal to 190 mg/dL HDL Cholesterol 48 >40 mg/dL Desirable HDL: greater than 40 mg/dL Note: This HDL assay may give artificially low results in patients with liver disease. 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.10) Referral Organization Osito Mulligan MD Referring Provider First Name Osito Referring Provider Last Name Isaak Referring Provider Speciality Internal M edicine Referred Provider Tk Garrido Referred Provider Specialty Cardiovascul ar Disease General Notes Shirley Hughes 0 07/03/2024 02:23:52 PM >called patient's with this info Referral Priority Routine Referral Appointment Date 08/31/2024 Medications Medication SIG (Take, Route, Frequency, Duration) Notes Start Date End Date Status Carbidopa-Levodopa 25-100 MG 1 tablet as needed Orally Three times a day Active Aspir-Low 81 MG 1 tablet Orally Once a day for 30 day(s) Active Sertraline HCl 25 MG 1 tablet Orally Onc e a day for 30 day(s) Active Indomethacin 50 MG 1 capsule with food or milk Orally Twice a day for 10 days 06/22/2024 Active risperiDONE 0.5 MG 1 tablet Orally Once a day Active ProAir RespiClick 108 (90 Base) MCG/ACT 1 puff as needed Inhalation every 4 hrs for 30 days 05/31/2015 Not-Taking Colchicine 0.6 MG 1 tablet Orally 2 a day for 30 day(s) 10/31/2013 Not-Taking Atorvastatin Calcium 40 MG TAKE 1 TABLET BY MOUTH EVERY DAY for 90 Active Iron 325 (65 Fe) MG 1 tablet Orally Once a day for 30 day(s) Not-Taking Cialis 20 MG 1 tablet Orally Once a day for 30 day(s) 05/31/2015 Active Immunizations Vaccine Route Administration Date Status Comme nts PPSV23 (Pnemovax) Unknown 03/19/2009 Administered Tetanus Unknown 03/19/2003 Administered Flu Vaccine IM Intramuscular 05/20/2012 Administered TDaP Unknown 06/03/2012 Administered Flu Vaccine IM Intramuscular 03/14/2013 Administered Fluarix Quadrivalent IM Intramuscular 02/05/2014 Administe red Shingles IM Intramuscular 03/12/2014 Administered zFluzone Quadrivalent IM Intramuscular 04/02/2015 Administ ered PPSV23 (Pnemovax) IM Intramuscular 12/31/2015 Administered Fluarix Quadrivalent IM Intramuscular 06/29/2016 Administe red Fluarix Quadrivalent IM Intramuscular 04/06/2017 Administe red Prevnar 13 IM Intramuscular 08/02/2017 Administered Fluarix Quadrivalent IM Intramuscular 02/03/2018 Administe red Fluarix Quadrivalent IM Intramuscular 02/02/2019 Administe red Fluarix Quadrivalent IM Intramuscular 03/12/2020 Administe red SARS-COV-2 Pfizer Unknown 07/27/2020 Administered SARS-COV-2 Pfizer Unknown 08/24/2020 Administered Influenza High Dose IM Intramuscular 02/25/2021 Administer ed SARS-COV-2 Moderna Unknown 03/20/2021 Administered Influenza High Dose IM Intramuscular 03/31/2022 Administer ed Influenza High Dose IM Intramuscular 04/01/2023 Administer ed Influenza High Dose IM Intramuscular 02/01/2024 Administer ed Flu Vaccine Unknown 02/05/2014 Pending Social History Tobacco Use: Social History Observation Description Date Details (start date - stop date) Never Smoker NA - NA Tobacco Use/Smoking Question Answer Notes Patient is a nonsmoker Additional Findings: Tobacco Non-User Cu rrent non-smoker, currently using no form of tobacco Alcohol Screen Question Answer Notes Did you have a drink containing alcohol in the p ast year? No Points 0 Interpretation Negative Problems Problem Type SNOMED Code ICD Code Onset Dates Problem Status W/U Status Risk Notes Problem 96886991 Chronic rhinitis (J31.0) Active confirmed Problem 3791362379 Pain in right kn ee (M25.561) Active confirmed Problem 016613666 Erectile dysfunction due to diseases classified elsewhere (N52.1) Active confirmed Problem 03980833 Essential hypertension (I10) Active confirmed Problem 07394429 Spermatocele (N43.40) Active confirmed Problem 716073276 Low HDL (under 4 0) (E78.6) Active confirmed Problem 10141824 [place] syndrom e (E80.4) Active confirmed Problem 372843431 Erectile dysfunction, unspecified erectile dysfunction type (N52.9) Active confirmed Problem 096657140 Nonrheumatic aor tic valve stenosis (I35.0) Active confirmed Problem 641213457 Lung nodule (R91.1) Active confirmed Problem 883824661 History of gout (Z87.39) Active confirmed Problem 778543854 Morbid obesity d ue to excess calories (E66.01) Active confirmed Problem Dementia (56056818) Dementia (F03.90) Active co nfirmed Problem 375243849 History of hematuria (Z87.448) Active confirmed Problem Atherosclerotic hear t disease of oneida coronary artery without angina pectoris (434581949820505) 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) Active confirmed Problem 70299992 Peptic ulcer disease (K27.9) Active confirmed Problem 71296538 Tophaceous gout (M1A.9XX1) Active confirmed Problem hypercholesterolemia (disorder) (53247420) Hypercholesteremia (E78.00) Active confirmed Problem 633794752 Microcytic anemi a (D50.9) Active confirmed Problem 661894955 Arthritis of kne e (M17.10) Active confirmed Problem 06156119 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) Active confirmed Problem 797781598 Celiac disease/sprue (K90.0) Active confirmed Vital Signs Blood pressure diastolic 70 mm Hg 06/22/2024 Height 69 in 06/22/2024 Blood pressure systolic 124 mm Hg 06/22/2024 Weight 150 lbs 10/28/2023 BMI 22.15 kg/m2 10/28/2023 Encounters Encounter Location Date Provider Diagnosis Osito Mulligan MD [address] [place] [id number] 09/21/2023 Osito Mulligan Pre-op evaluation Z0 1.818 ; Dementia F03.90 and Hydrocele, unspecified hydrocele type N43.3 Osito Mulligan MD [address] [place] [address] Drive [address] [place] [id number] 02/01/2024 Osito Mulligan Encounter for immunization Z23 Osito Mulligan MD [address] [place] [address] [id number] 09/09/2023 Osito Mulligan Dementia F03.90 ; Ch ronic rhinitis J31.0 and Symptomatic hypotension I95.9 Osito Mulligan MD [address] [place] [address] Drive [address] [place] [id number] 10/28/2023 Osito Mulligan Essential hypertensi on I10 and Spermatocele N43.40 Osito Mulligan MD [address] [place] [address] Drive [address] [place] [id number] 05/25/2024 Osito Mulligan Essential hypertensi on I10 ; Annual physical exam Z00.00 ; Hypercholesteremia E78.00 ; Dementia F03.90 ; Bilateral impacted cerumen H61.23 and Depression screening Z13.31 Osito Mulligan MD [address] [place] [id number] 06/22/2024 Osito Mulligan Acute idiopathic gou t of left hand M10.042 Osito Mulligan MD [address] [place] [id number] 08/07/2024 Osito Mulligan MD [address] [place] [address] [id number] 09/17/2023 Osito Mulligan MD [address] [place] [id number] 05/09/2024 Osito Mulligan MD [address] [place] [address] [id number] 06/30/2024 Osito Mulligan Nonrheumatic aortic valve stenosis I35.0 Ostio Mulligan MD [address] [place] [address] [id number] 07/28/2024 Osito Mull[address] MD [address] [place] [address] [id number] 07/28/2024 Osito Mulligan MD [address] [place] [id number] 07/28/2024 Osito Mulligan Assessments Encounter Date Diagnosis (ICD Code) Assessment Notes Treatment Notes Treatment Clinical Notes Section Notes 09/21/2023 Pre-op evaluation (ICD-10 - Z01.818) no need for any evaluation prior to the upcoming surgery 09/21/2023 Dementia (ICD-10 - F03.90) is slowly deteriorating. because of that have spoken to dr armas and is going to do local and sedation since general can worsen dementia 02/01/2024 Encounter for immunization (ICD-10 - Z23) 09/09/2023 Dementia (ICD-10 - F03.90) have advised that he shouldn't drive. 10/28/2023 Essential hypertension (ICD-10 - I10) having some elevated pressures at home, will continue to monitor 10/28/2023 Spermatocele (ICD-10 - N43.40) had successful surgery 05/25/2024 Essential hypertension (ICD-10 - I10) doing well, will continue current regiment 05/25/2024 Annual physical exam (ICD-10 - Z00.00) labs reviewed and discussed with patients and patient 06/22/2024 Acute idiopathic gou t of left hand (ICD-10 - M10.042) patient caregiver verbalized understanding of medication and directions for use 06/30/2024 Nonrheumatic aortic valve stenosis (ICD-10 - I35.0) 09/21/2023 Hydrocele, unspecified hydrocele type (ICD-10 - N43.3) 09/09/2023 Chronic rhinitis (ICD-10 - J31.0) stable 05/25/2024 Hypercholesteremia (ICD-10 - E78.00) doing well, will continue current regiment 09/09/2023 Symptomatic hypotension (ICD-10 - I95.9) will continue to monitor 05/25/2024 Dementia (ICD-10 - F03.90) progressing 05/25/2024 Bilateral impacted cerumen (ICD-10 - H61.23) lavage performed with good results 05/25/2024 Depression screening (ICD-10 - Z13.31) positive screen Plan Of Treatment Pending Test Test Name Order Date Electrocardiogram (EKG) 06/14/2015 CT CHEST NO CONTRAST 05/09/2021 CT CHEST NO CONTRAST 10/24/2020 US ABD AORTA 06/28/2012 ECHO 06/30/2024 CA echo limited 06/22/2022 CA echo transthoracic complete CT chest wo con 01/21/2021 Future Test Test Name Order Date CT CHEST NO CONTRAST 07/09/2019 CT CHEST NO CONTRAST 06/22/2020 Next Appt Details Provider Name:Osito peoples, 12/08/2024 01:45:00 PM, [address] [place] [address], [address] [place] [address], [phone], Provider Name:Osito Garcia ier, 05/21/2025 07:30:00 AM, [address] [place] [address], Suite [facility], [place], [place], [phone], Provider Name:Osito glassr, 06/01/2025 01:00:00 PM, [address] [place] [address], Suite [facility], [place], [place], [phone], Insurance Providers Payer Name Payer Address Payer Phone Subscriber Number Group Number Insured Name Patient Relationship to Insured Coverage Start Date Coverage End Date [employer] PLAN [address] [place] [phone] [id number] Yayo Rodrigues Self - [facility] the insured [facility] [address] [place] [address] [id number] Yayo Rodrigues Self - patient is the insured Medical (General) History Medical History History ICD Code hematuria. had work up in 2001 still refuses colonoscopy 20 13 again refuses in 2015, 2017, 09/26/18 Colonoscopy and Endo by had sessile polyp so needed repeat in one to 2 years Nya colonoscopy pendcarmen path discussed cologard and he is going to th ink about it level 2 node according to radiology is j ust whene it is
--- OUTSIDE RECORDS SUMMARY | 2024-08-31 15:57 | XMS_ITS | Patient Health Record ---
Author Organization [facility] Address [address] [facility] [address] [place] [address] Care Team Providers Care Billet Bed Operator Name Role Phone Osito Mulligan Primary Care Provider Unavailab le Allergies Allergen (clinical drug ingredient) Drug/Non Drug Allergy documented on EMR Reaction Allergy Type Onset Date Status Gluten Gluten Unknown Allergy Active Reason For Referral No Information Medications Medication SIG (Take, Route, Frequency, Duration) Notes Start Date End Date Status Iron (Ferrous Sulfate) 325 (65 Fe) MG 1 tablet Orally Three times a Week Active amLODIPine Besylate 5 MG 1 tablet Orally Once a day Active Multivitamin - as directed Orally Active Lisinopril 10 MG 1 tablet Orally Once a day Active Metoprolol Succinate 25 MG 1 capsule Ora lly Once a day Active Problems Problem Type SNOMED Code ICD Code Onset Dates Problem Status W/U Status Risk Notes Problem 224734512 Peripheral vascular disease, unspecified (I73.9) Active confirmed Problem 483990887875728 Acquired hallux rigidus of right foot (M20.21) Active confirmed Plan Of Treatment Pending Test Test Name Order Date Trim skin lesion 02/02/2023 Insurance Providers Payer Name Payer Address Payer Phone Subscriber Number Group Number Insured Name Patient Relationship to Insured Coverage Start Date Coverage End Date [employer]AGE [address] [place] [phone] [id number] Yayo Rodrigues Self - patient is the insured Medical (General) History Medical History History ICD Code High Cholesterol Celiac Disease Hypertension Arthritis History of GI bleed due to ulceration Iron deficiency. Surgical History Surgery Date(Month/Year) Hernia Repair Tonsillectomy Hospitalization History Reason Date(Month/Year) Hernia Surgery
--- OUTSIDE RECORDS SUMMARY | 2024-08-31 15:57 | XMS_ITS ---
Author Organization Osito Mulligan MD Address [address] [place] [phone] Care Team Providers Care Seo Specialist Name Role Phone Osito Mulligan Primary Care Provider [phone] Encounters Encounter Location Date Provider Diagnosis Osito Mulligan MD [facility] [address] [place] [id number] 07/28/2024 Oisto Mulligan Plan Of Treatment Next Appt Details Provider Name:Osito peoples, 12/08/2024 01:45:00 PM, [address] [place] [address], [address], [phone], Provider Name:Osito peoples, 05/21/2025 07:30:00 AM, [address] [place] [address], [address], [phone], Provider Name:Osito Garcia ier, 06/01/2025 01:00:00 PM, [address] [place] [address], [address], [phone], Progress Notes * Jennifer RAYGOZAOB: 0 (74 yo M)Acc No.[id number]:07/28/2024 Patient:?Yayo RAYGOZA :1950???Age:74 Y???Sex:Male Address: [place] [address] Subjective: * Chief Complaints: * ??? * Medical History:? * Surgical History:? * Hospitalization/Major Diagno stic Procedure:? * Medications:? Objective: * Vitals:? * Physical Examination:? Assessment: Plan: * Treatment: * Procedure Codes:? * true * Date:? Generated for Kamala morales/Titus/Patelsmcarlos on:?08/31/2024 03:57 PM EDT
--- OUTSIDE RECORDS SUMMARY | 2024-08-31 15:57 | XMS_ITS ---
Author Organization Osito Mulligan MD Address [address] [place] [phone] Care Team Providers Care Conservator Artifacts Name Role Phone Osito Mulligan Primary Care Provider REASON FOR VISIT HCC Risk Codes 12/08 Encounters Encounter Location Date Provider Diagnosis Osito Mulligan MD [address] [facility] [address] [place] [phone] 08/07/2024 Osito Mulliagn Plan Of Treatment Next Appt Details Provider Name:Osito peoples, 12/08/2024 01:45:00 PM, [address] [place] [address], [address] [place] [address], [phone], Provider Name:Osito peoples, 05/21/2025 07:30:00 AM, [address] [place] [address], [address] [place] [address], [phone], Provider Name:Osito peoples, 06/01/2025 01:00:00 PM, [address] [place] [address], [address], [phone], Progress Notes * Jennifer RAYGOZAOB: 0 (74 yo M)Acc No.[id number]:08/07/2024 Patient:?Yayo RAYGOZA :1950???Age:74 Y???Sex:Male Address: [address] [place], [place] [address] * * Date:?
--- OUTSIDE RECORDS SUMMARY | 2024-08-31 15:58 | XMS_ITS | Patient Health Record ---
Author Organization [facility] Address [address] [place] [phone] Care Team Providers Care Forcer Maker Name Role Phone Osito Mulligan MD Primary Care Provider Alirio Torres Jr Allergies Allergen (clinical drug ingredient) Drug/Non Drug Allergy documented on EMR Reaction Allergy Type Onset Date Status Gluten Gluten Unknown Allergy Active codeine Codeine Unknown Drug Allergy Active Reason For Referral No Information Medications Medication SIG (Take, Route, Frequency, Duration) Notes Start Date End Date Status amLODIPine Besylate 5 MG Oral for 90 Active Vitamin D-3 125 MCG (5000 UT) as directed Orally Active Aspirin 81 81 MG 1 tablet Orally Once a day for 30 day(s) Active Atorvastatin Calcium 40 MG TAKE 1 TABLET BY MOUTH EVERY DAY FOR 90 DAYS Oral for 90 Active Metoprolol Tartrate 100 MG TAKE 1 TABLET BY MOUTH TWICE A DAY Oral for 90 Active Lisinopril 20 MG Oral for 90 A ctive Multi Vitamin - 1 tablet Orally Once a day for 30 day(s) Active MiraLax (colon prep) 17 GM/SCOOP mixed with Gatorade or Crystal Light Orally begin at 5:00 p.m. the day before the procedure for 1 day 07/27/2022 Active Immunizations Vaccine Route Administration Date Status Comme nts Influenza Unknown 04/15/2022 Administered Social History Tobacco Use: Social History Observation Description Date Details (start date - stop date) Never Smoker NA - NA Tobacco Use/Smoking Question Answer Notes Patient is a nonsmoker Alcohol Screen Question Answer Notes Did you have a drink containing alcohol in the p ast year? No Points 0 Interpretation Negative Problems Problem Type SNOMED Code ICD Code Onset Dates Problem Status W/U Status Risk Notes Problem 474746517 Colon cancer screening (Z12.11) Active confirmed Problem 101622653 Encounter for other preprocedural examination (Z01.818) Active confirmed Problem 587842192 Long-term use of aspirin therapy (Z79.82) Active confirmed Plan Of Treatment Future Test Test Name Order Date COLONOSCOPY 07/27/2022 Insurance Providers Payer Name Payer Address Payer Phone Subscriber Number Group Number Insured Name Patient Relationship to Insured Coverage Start Date Coverage End Date [facility] [address] [place] [phone] [id number] SHERINE RAYGOZA Self - patient is the insured Medical (General) History Medical History History ICD Code Hypertension heart murmur arthritis Colon polyps, colonoscopy 09/27/18 small t ubular adenoma Celiac disease, EGD 11/23/18 chronic duode nitis Gout Surgical History Surgery Date(Month/Year) hernia 1986
--- OUTSIDE RECORDS SUMMARY | 2024-08-31 15:58 | XMS_ITS ---
Author Organization Osito Mulligan MD Address [address] [place] [phone] Care Team Providers Care Manager E Learning Name Role Phone Osito Mulligan Primary Care Provider [phone] Encounters Encounter Location Date Provider Diagnosis Osito Mulligan MD [address] [facility] [address] [place] [phone] 07/28/2024 Osito Mulligan Plan Of Treatment Next Appt Details Provider Name:Osito peoples, 12/08/2024 01:45:00 PM, [address] [place] [address], [address], [phone], Provider Name:Osito peoples, 05/21/2025 07:30:00 AM, [address] [place] [address], [address], [phone], Provider Name:Osito Garcia ier, 06/01/2025 01:00:00 PM, [address] [place] [address], [address], [phone], Progress Notes * Jennifer RAYGOZAOB: 0 (74 yo M)Acc No.[id number]:07/28/2024 Patient:?Yayo RAYGOZA :1950???Age:74 Y???Sex:Male Address: [place] [address] Subjective: * Chief Complaints: * ??? * Medical History:? * Surgical History:? * Hospitalization/Major Diagno stic Procedure:? * Medications:? Objective: * Vitals:? * Physical Examination:? Assessment: Plan: * Treatment: * Procedure Codes:? * true * Date:? Generated for Kamala morales/Titus/Patelsmcarlos on:?08/31/2024 03:57 PM EDT
== END 2024-08-31 13:41 | disposition home or self-care (01) ==
LOC: HO.HCS 13:14
PROVIDERS: PCP Internal Medicine; Visit Provider Internal Medicine Cardiovascular Disease
DX: I35.0 Nonrheumatic aortic (valve) stenosis (principal)
CPT/HCPCS: 93010; 99214; G2211

== ENCOUNTER → 2024-08-31 13:13 | Outpatient (BNVA) | payer MEDICARE, MEDICAID, SELFPAY | PROVIDERS: PCP Internal Medicine; Visit Provider Internal Medicine Cardiovascular Disease | DX: I35.0 Nonrheumatic aortic (valve) stenosis (principal); R94.31 Abnormal electrocardiogram [ECG] [EKG] | CPT/HCPCS: 93005; 99212 ==

== ENCOUNTER 2024-12-08 15:30 | Outpatient (REF) | payer MEDICARE, MEDICAID, SELFPAY ==
--- OUTSIDE RECORDS SUMMARY | 2024-12-08 15:33 | XMS_ITS | Patient Health Record ---
Author Organization [facility] Address [address] [place] [phone] Care Team Providers Care Brazing Machine Setter Name Role Phone Osito Mulligan MD Primary [...] Problem Status W/U Status Risk Notes Problem [id number] Colon cancer screening (Z12.11) Active confirmed Problem 257340838 Encounter for other preprocedural examination (Z01.818) Active confirmed Problem 383103914 Long-term use of aspirin therapy (Z79.82) Active confirmed Plan Of Treatment Future Test Test Name Order Date COLONOSCOPY 07/27/2022 Insurance Providers Payer Name Payer Address Payer Phone Subscriber Number Group Number Insured Name Patient Relationship to Insured Coverage Start Date Coverage End Date [facility] [address] [facility] [place] [phone] [id number] SHERINE RAYGOZA Self - patient is the insured Medical (General) History Medical History History ICD Code Hypertension heart murmur arthritis Colon polyps, colonoscopy 09/27/18 small t ubular adenoma Celiac disease, EGD 11/23/18 chronic duode nitis Gout Surgical History Surgery Date(Month/Year) hernia 1986
--- OUTSIDE RECORDS SUMMARY | 2024-12-08 15:33 | XMS_ITS | Patient Health Record ---
Author Organization [facility] Address [address] [facility] [address] [place] [address] Care Team Providers Care Industrial Cleaning Technician Name Role Phone Osito Mulligan Primary Care [...] Problem Status W/U Status Risk Notes Problem 796973960 Peripheral vascular disease, unspecified (I73.9) Active confirmed Problem [id number] Acquired hallux rigidus of right foot (M20.21) Active confirmed Plan Of Treatment Pending Test Test Name Order Date Trim skin lesion 02/02/2023 Insurance Providers Payer Name Payer Address Payer Phone Subscriber Number Group Number Insured Name Patient Relationship to Insured Coverage Start Date Coverage End Date [employer] [address] [phone] [id number] Yayo Rodrigues Self - patient is the insured Medical (General) History Medical History History ICD Code High Cholesterol Celiac Disease Hypertension Arthritis History of GI bleed due to ulceration Iron deficiency. Surgical History Surgery Date(Month/Year) Hernia Repair Tonsillectomy Hospitalization History Reason Date(Month/Year) Hernia Surgery
--- OUTSIDE RECORDS SUMMARY | 2024-12-08 15:33 | XMS_ITS | Patient Health Record ---
Author Organization Osito Mulligan MD Address [address] [place], [place] [id number] Care Team Providers Care Dungeon Master Name Role Phone Osito Mulligan Primary Care Provider Allergies Allergen (clinical drug ingredient) Drug/Non Drug Allergy documented on EMR Reaction Allergy Type Onset Date Status codeine Codeine Sulfate n/v Drug Allergy A ctive sulfamethoxazole / trimethoprim Bactrim DS rash Drug Allergy Active Reason For Referral Reason Coronary artery dise ase Diagnosis 1 Coronary artery dise ase involving washoe coronary artery of washoe heart without angina pectoris (I25.10) Referral Organization [...] BY MOUTH EVERY DAY for 90 Active risperiDONE 0.5 MG 1 tablet Orally [...] Once a day for 30 day(s) Active Carbidopa-Levodopa 25-100 MG 1 tablet as needed Orally Three times a day Active Sertraline HCl 25 MG 1 tablet Orally Onc e a day for 30 day(s) Active Immunizations Vaccine Route Administration Date Status [...] Problem Status W/U Status Risk Notes Problem 10267025 Chronic rhinitis (J31.0) Active confirmed Problem 5861719595 Pain in right kn ee (M25.561) Active confirmed Problem 764644283 Erectile dysfunction due to diseases classified elsewhere (N52.1) Active confirmed Problem 67621722 Essential hypertension (I10) Active confirmed Problem 55675548 Spermatocele (N43.40) Active confirmed Problem 844690070 Low HDL (under 4 0) (E78.6) Active confirmed Problem 10891063 [place] syndrom e (E80.4) Active confirmed Problem 846809052 Erectile dysfunction, unspecified erectile dysfunction type (N52.9) Active confirmed Problem 319119229 Nonrheumatic aor tic valve stenosis (I35.0) Active confirmed Problem 400148706 Lung nodule (R91.1) Active confirmed Problem 749700548 History of gout (Z87.39) Active confirmed Problem 626910554 Morbid obesity d ue to excess calories (E66.01) Active confirmed Problem Dementia (53931840) Dementia (F03.90) Active co nfirmed Problem 915474815 History of hematuria (Z87.448) Active confirmed Problem Atherosclerotic hear t disease of washoe coronary artery without angina pectoris (768463928278624) Coronary artery disease involving washoe coronary artery of washoe heart without angina pectoris (I25.10) Active confirmed Problem 50897292 Peptic ulcer disease (K27.9) Active confirmed Problem 12316923 Tophaceous gout (M1A.9XX1) Active confirmed Problem hypercholesterolemia (disorder) (45691089) Hypercholesteremia (E78.00) Active confirmed Problem 951036846 Microcytic anemi a (D50.9) Active confirmed Problem 939704256 Arthritis of kne e (M17.10) Active confirmed Problem 80161192 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) Active confirmed Problem 358531614 Celiac disease/sprue (K90.0) Active confirmed Vital Signs Blood pressure diastolic 70 mm Hg 09/28/2024 Height 69 in 12/08/2024 Blood pressure systolic 122 mm Hg 09/28/2024 Weight 156 lbs 12/08/2024 BMI 23.03 kg/m2 12/08/2024 Encounters Encounter Location Date Provider Diagnosis Osito Mulligan MD [address] [place] [address] [id number] 02/01/2024 Osito Mulligan Encounter for immunization Z23 Osito Mulligan MD [address] [place] [address] [id number] 12/08/2024 Osito Mulligan Acute idiopathic gou t of left hand M10.042 and Parkinson disease, symptomatic G20.A1 Osito Mulligan MD [address] [place] [address] [id number] 12/08/2024 Osito Mulligan Low HDL (under 40) E 78.6 ; Essential hypertension I10 and Coronary artery disease involving washoe coronary artery of washoe heart without angina pectoris I25.10 Osito Mulligan MD [address] [place] [address] [id number] 05/25/2024 Osito Mulligan Essential hypertensi on I10 ; Annual physical exam Z00.00 ; Hypercholesteremia E78.00 ; Dementia F03.90 ; Bilateral impacted cerumen H61.23 and Depression screening Z13.31 Osito Mulligan MD [address] [place] [address] [id number] 06/22/2024 Osito Mulligan Acute idiopathic gou t of left hand M10.042 Osito Mulligan MD [address] [place] [address] [id number] 09/28/2024 Osito Mulligan Cerumen debris on tympanic membrane of both ears H61.23 Osito Mulligan MD [address] [place] [address] [id number] 05/09/2024 Osito Mulligan MD [address] [place] [address] [id number] 06/30/2024 Osito Mulligan Nonrheumatic aortic valve stenosis I35.0 Osito Mulligan MD [address] [place] [address] [id number] 07/28/2024 Osito Mulligan MD [address] [place] [address] [id number] 07/28/2024 Osito Mulligan MD [address] [place], [place] [id number] 07/28/2024 Osito Mulligan MD [address] [place] [address] [id number] 08/07/2024 Osito Mulligan Assessments Encounter Date Diagnosis (ICD Code) Assessment Notes Treatment Notes Treatment Clinical Notes Section Notes 02/01/2024 Encounter for immunization (ICD-10 - Z23) 12/08/2024 Acute idiopathic gou t of left hand (ICD-10 - M10.042) 12/08/2024 Low HDL (under 40) (ICD-10 - E78.6) 05/25/2024 Essential hypertension (ICD-10 - I10) doing well, will continue current regiment 05/25/2024 Annual physical exam (ICD-10 - Z00.00) labs reviewed and discussed with patients and patient 06/22/2024 Acute idiopathic gou t of left hand (ICD-10 - M10.042) patient caregiver verbalized understanding of medication and directions for use 09/28/2024 Cerumen debris on tympanic membrane of both ears (ICD-10 - H61.23) 06/30/2024 Nonrheumatic aortic valve stenosis (ICD-10 - I35.0) 12/08/2024 Parkinson disease, symptomatic (ICD-10 - G20.A1) has cogwheeling and is on meds 12/08/2024 Essential hypertension (ICD-10 - I10) 05/25/2024 Hypercholesteremia (ICD-10 - E78.00) doing well, will continue current regiment 12/08/2024 Coronary artery disease involving washoe coronary artery of washoe heart without angina pectoris (ICD-10 - I25.10) 05/25/2024 Dementia (ICD-10 - F03.90) progressing 05/25/2024 Bilateral impacted cerumen (ICD-10 - H61.23) lavage performed with good results 05/25/2024 Depression screening (ICD-10 - Z13.31) positive screen Plan Of Treatment Pending Test Test Name Order Date Electrocardiogram (EKG) 06/14/2015 CT CHEST NO CONTRAST 10/24/2020 CT CHEST NO CONTRAST 05/09/2021 US ABD AORTA 06/28/2012 ECHO 06/30/2024 Liver Panel 12/08/2024 Lipid Panel with Reflex 12/08/2024 CA echo limited 06/22/2022 CA echo transthoracic complete CT chest wo con 01/21/2021 Future Test Test Name Order Date CT CHEST NO CONTRAST 07/09/2019 CT CHEST NO CONTRAST 06/22/2020 Next Appt Details Provider Name:Osito Garcia ier, 05/21/2025 07:30:00 AM, [address], [address], [place], [place], [phone], Provider Name:Osito Garcia ier, 06/01/2025 01:00:00 PM, [address], [address], [place], [place], [phone], Insurance Providers Payer Name Payer Address Payer Phone Subscriber Number Group Number Insured Name Patient Relationship to Insured Coverage Start Date Coverage End Date [employer] PLAN [address] [place] [address] [id number] Yayo Rodrigues Self - patient is the insured [facility] [address] [place] [address] [id number] Yayo Rodrigues Self - patient is the insured Medical (General) History Medical History History ICD Code hematuria. had work up in 2001 still refuses colonoscopy 20 13 again refuses in 2015, 2017, 09/26/18 Colonoscopy and Endo by had sessile polyp so needed repeat in one to 2 years Nya colonoscopy wendy neil discussed cologard and he is going to th ink about it level 2 node according to radiology is j ust whene it is
[2024-12-08 15:49] LABS: Alanine Aminotransferase 21 U/L (0-40); Albumin Level 4.0 g/dL (3.5-5.0); Alkaline Phosphatase 93 U/L (39-117); Aspartate Amino Transferase 39 U/L (5-37); Cholesterol 111 mg/dL (<200); HDL Cholesterol 39 mg/dL (>40); Total Protein 6.7 g/dL (6.5-8.0); Triglycerides 102 mg/dL (<150)
[2024-12-08 16:49] LABS: Reflex LDLD? No
== END 2024-12-08 15:31 | disposition home or self-care (01) ==
LOC: HO.LNP 15:30
PROVIDERS: Visit Provider Internal Medicine
DX: I25.10 Atherosclerotic heart disease of native coronary artery without angina pectoris (principal); I10 Essential (primary) hypertension; E78.6 Lipoprotein deficiency
CPT/HCPCS: 80061; 80076

== ENCOUNTER 2025-01-03 11:01 | Outpatient (AMB) | payer MEDICARE, MEDICAID, SELFPAY ==
--- NOTE | 2025-01-03 11:05 | A.OFFVIS_ITS ---
Intake Visit Reasons: Medication concerns Accompanied by: Spouse Allergies codeine Allergy (Unknown, Verified 01/03/25 11:06) mild Sulfa (Sulfonamide Antibiotics) Allergy (Unknown, Verified 01/03/25 11:06) RASH Medication List - Last Reconciled 01/03/25 by Babita Unger CNP aspirin (Adult Aspirin Regimen) 81 mg PO DAILY atorvastatin 40 mg PO BEDTIME carbidopa-levodopa 25-100 mg 1 tab PO QID risperidone 1 mg orally 1/2 tab twice a day and 1/2 tab as needed; 30 days sertraline 50 mg PO DAILY HPI Comments Details: He was at home with his . Risperidone seemed to be helping. He still had some hallucinations and could be paranoid at times. For example, he woke during the night last night and thought people were coming after him. Sleep was up and down. She was giving him risperidone 0.5mg twice a day, with occasional additional dose at night as needed. He was having crying spells out of no where. 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 He was having some pain in his knees and was prescribed Tramadol 50mg from his PCP, but seemed to be too out of it and was trying 1/2 tab. Has [employer] 5 days/week.?Paces around. Walking some with two canes, but sometimes will forget and need to be reminded. No recent falls. Not always taking four doses of carbidopa-levodopa, usually taking 3 doses. Speaking in Kenyan at times, usually when tired, which cannot understand. Gets anxious when having to go to doctors appointments.? Previously tried haloperidol which did not help with sleep or hallucinations. Sleep was up and down, often staying up very late at night and sleeping late in the day. Hallucinations, seeing people in house and frightened at times. Hallucinations and paranoia. Does not recognize his to be his and usually thinks she is a nurse. He does not recognize his house and will ask to go home. She will have to drive him around before returning home and he is okay after this. Haloperidol was helping him calm down and helps with agitation and hallucinations. He is not walking as much and is using the wheelchair more often. He will wake during the night and wander around. Voice is soft and sometimes will speak Ken[place] which his does not understand. Having trouble always getting 4 doses of carbidopa-levodopa. Tremor has been okay. Gradual decline in motor functioning became apparent around 06/2023. Poor balance, moving slowly, shuffling when walking. Wakes during the night yelling at times. Argumentative at times. He does not recognize his house and thinks he is in a facility. He does not recognize his as his , thinks she is his liquefaction plant operator and asks where she lives. He seems to be drooling more and he feels like his voice sounds hoarse. Hx of short-term memory problems beginning in 2020. Increased confusion, becoming very agitated and paranoid at night starting in 2022. Would feel that is being held prisoner and ask to go home. Would not recognize and think she was cult member, cleaning lady, or his mother. Thinks strangers are in the house and people are trying to steal from him. He has 3 daughters. 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 [facility] Medical History (Updated 01/03/25 @ 11:10 by Babita Unger CNP) Aortic stenosis Dementia Orthostatic hypotension Hx of colonic polyps Hx of gout Hx of acute arthritis History of celiac disease Hx of cardiac murmur Family history of heart murmur High cholesterol Surgical History Hx of hernia repair Hx of esophagogastroduodenoscopy Family History Father Lung cancer Social History Patient Tobacco Use Status: Never used Tobacco Review of Systems Const Denies chills, Denies daytime sleepiness, Reports difficulty sleeping, Denies fatigue, Denies fever(s), Denies frequent falls, Denies headache(s), Denies increased appetite, Denies poor appetite, Denies snoring, Denies weakness, Denies weight gain and Denies weight loss Eyes Denies loss of vision ENT Denies vertigo, Denies dizziness, Denies headache(s) and Denies neck pain Card Denies chest pain at rest, Denies chest pain with activity, Denies syncope, Denies leg edema, Denies palpitations, Denies dyspnea and Denies dyspnea on exertion Resp Denies cough, Denies dyspnea, Denies dyspnea on exertion and Denies snoring GI Denies abdominal pain, Denies constipation, Denies heartburn, Denies diarrhea and Denies nausea Denies urinary frequency, Denies urinary incontinence and Denies urinary urgency Musc Denies abnormal gait, Denies back pain, Denies myalgias, Denies arthralgias, Denies neck pain, Denies numbness and Denies tingling Neuro Denies abnormal gait, Denies vertigo, Denies dizziness, Denies syncope, Denies frequent falls, Denies headache(s), Denies lack of coordination, Denies loss of vision, Reports memory loss, Denies numbness, Denies Other visual disturbances, Denies restless legs, Denies seizure-like activity, Denies tingling, Denies paresthesias, Denies tremor(s) and Denies weakness Psych Reports anxiety, Reports depression, Reports auditory hallucinations, Reports memory loss and Reports visual hallucinations Endo Denies fatigue and Denies palpitations Physical Exam Const Other: Unable to do due to televisit. Telehealth Telehealth Telehealth Platform: Telephone Location of provider rendering services: practice address Location of patient: address on file Patient Identification confirmed using: Name, : Yes Telehealth method: voice only Patient verbally consented to treatment: Yes Patient verbally consented to billing insurance company: Yes Results Reviewed Results Reviewed: Recent labs in Apr and May 2023 were normal except for Bilirubin 1.9-2.7 06/2023 CT Brain: Mild to moderate underlying microangiopathy and generalized cerebral volume loss. Moderate biparietal atrophy Assessment & Plan Assessment & Plan (1) Parkinsons disease: Code(s): G20.A1 - Parkinson's disease without dyskinesia, without mention of fluctuations Category: Medical Qualifiers: Dyskinesia presence: unspecified whether dyskinesia Fluctuating manifestations: unspecified whether manifestations fluctuate Qualified Code(s): G20.A1 - Parkinson's disease without dyskinesia, without mention of fluctuations Plan: Continue carbidopa-levodopa 25-100mg 1 tablet four times a day. (2) Dementia: Code(s): F03.90 - Unspecified dementia, unspecified severity, without behavioral disturbance, psychotic disturbance, mood disturbance, and anxiety Category: Medical Qualifiers: Dementia type: unspecified type Dementia severity: unspecified severity Dementia behavioral or psychological symptom: with mood disturbance Qualified Code(s): F03.93 - Unspecified dementia, unspecified severity, with mood disturbance Plan: Continue sertraline 50mg 1 tablet daily. Increase risperiode 0.5mg 1 tablet three times a day. Plan Meds tried: quetiapine, haldol. Medications: New risperidone 0.5 mg PO TID 90 tabs 5RF 30 days Discontinued risperidone Discontinued Reason: Order 1 mg orally 1/2 tab twice a day and 1/2 tab as needed; 30 days 45 tabs 3RF Coding Level of Care Code Tele Est Pt Level 4 (41868) Diagnoses Parkinson's disease, unspecified whether dyskinesia present, unspecified whether manifestations fluctuate G20.A1 Dyskinesia presence: unspecified whether dyskinesia Fluctuating manifestations: unspecified whether manifestations fluctuate Dementia with mood disturbance, unspecified dementia severity, unspecified dementia type F03.93 Dementia type: unspecified type Dementia severity: unspecified severity Dementia behavioral or psychological symptom: with mood disturbance
--- OUTSIDE RECORDS SUMMARY | 2025-01-03 11:59 | XMS_ITS | Patient Health Record ---
Author Organization Osito Mulligan MD Address [address] [place], [place] [id number] Care Team Providers Care Thread Separator Name Role Phone Osito Mulligan Primary Care Provider Allergies Allergen (clinical drug ingredient) Drug/Non Drug Allergy documented on EMR Reaction Allergy Type Onset Date Status codeine Codeine Sulfate n/v Drug Allergy A ctive sulfamethoxazole / trimethoprim Bactrim DS rash Drug Allergy Active Results Component Value Reference Range Notes Liver Panel Reviewed date:12/09/2024 05:38:13 PM Interpretation: Performing Lab:[facility], [address] [place] [id number] Notes/Report: Bilirubin Total 1.7 0.0-1.0 mg/dL Bilirubin Direct 0.5 0.0-0.5 mg/dL Aspartate Amino Transferase 39 5-37 U/L Alanine Aminotransferase 21 0-40 U/L Total Protein 6.7 6.5-8.0 g/dL Albumin Level 4.0 3.5-5.0 g/dL Alkaline Phosphatase 93 39-117 U/L Lipid Panel with Reflex Reviewed date:12/09/2024 05:37:52 PM Interpretation: Performing Lab:[facility], [address] [place] [id number] Notes/Report: Triglycerides 102 <150 mg/dL Desirable Triglyceride: [...] low results in patients with liver disease. Harvey Padron Reviewed date:12/08/2024 04:05:44 PM Interpretation: Performing Lab:[facility], [address] [place] [phone] Notes/Report: Harvey Padron See Note Specimen held untested for 24 hours; Call to request Chemistry testing. Reason For Referral Reason Coronary artery dise ase Diagnosis 1 Coronary artery dise ase involving [place] coronary artery of [place] heart without angina pectoris (I25.10) Referral Organization [...] e a day for 30 day(s) Active traMADol HCl 50 MG 1 tablet as needed Orally Once a day for 30 days 12/22/2024 Active Immunizations Vaccine Route Administration Date Status [...] Problem Status W/U Status Risk Notes Problem 56895366 Chronic rhinitis (J31.0) Active confirmed Problem 2441554445 Pain in right kn ee (M25.561) Active confirmed Problem 225086599 Erectile dysfunction due to diseases classified elsewhere (N52.1) Active confirmed Problem 72648259 Essential hypertension (I10) Active confirmed Problem 14011101 Spermatocele (N43.40) Active confirmed Problem 092268276 Low HDL (under 4 0) (E78.6) Active confirmed Problem 09814964 [place] syndrom e (E80.4) Active confirmed Problem 077844068 Erectile dysfunction, unspecified erectile dysfunction type (N52.9) Active confirmed Problem 021283819 Nonrheumatic aor tic valve stenosis (I35.0) Active confirmed Problem 797325695 Lung nodule (R91.1) Active confirmed Problem 037687408 History of gout (Z87.39) Active confirmed Problem 434841216 Morbid obesity d ue to excess calories (E66.01) Active confirmed Problem Dementia (47755705) Dementia (F03.90) Active co nfirmed Problem 011484640 History of hematuria (Z87.448) Active confirmed Problem Atherosclerotic hear t disease of [place] coronary artery without angina pectoris (662553769250143) Coronary artery disease involving [place] coronary artery of [place] heart without angina pectoris (I25.10) Active confirmed Problem 74826119 Peptic ulcer disease (K27.9) Active confirmed Problem 25332905 Tophaceous gout (M1A.9XX1) Active confirmed Problem hypercholesterolemia (disorder) (88941008) Hypercholesteremia (E78.00) Active confirmed Problem 981690511 Microcytic anemi a (D50.9) Active confirmed Problem 611398928 Arthritis of kne e (M17.10) Active confirmed Problem 67518199 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) Active confirmed Problem 203742105 Celiac disease/sprue (K90.0) Active confirmed Vital Signs Blood pressure diastolic 70 mm Hg 09/28/2024 Height 69 in 12/08/2024 Blood pressure systolic 122 mm Hg 09/28/2024 Weight 156 lbs 12/08/2024 BMI 23.03 kg/m2 12/08/2024 Encounters Encounter Location Date Provider Diagnosis Osito Mulligan MD [address] [place] [id number] 02/01/2024 Osito Mulligan Encounter for immunization Z23 Osito Mulligan MD [address] [place] [id number] 12/08/2024 Osito Mulligan Low HDL (under 40) E 78.6 ; Essential hypertension I10 and Coronary artery disease involving [place] coronary artery of [place] heart without angina pectoris I25.10 Osito Mulligan MD [address] [place] [address] [id number] 05/25/2024 Osito Mulligan Essential hypertensi on I10 ; Annual physical exam Z00.00 ; Hypercholesteremia E78.00 ; Dementia F03.90 ; Bilateral impacted cerumen H61.23 and Depression screening Z13.31 Osito Mulligan MD [address] [place] [address] [id number] 06/22/2024 Osito Mulligan Acute idiopathic gou t of left hand M10.042 Osito Mulligan MD [address] [place] [address] [id number] 09/28/2024 Osito Mulligan Cerumen debris on tympanic membrane of both ears H61.23 Osito Mulligan MD [address] [place] [address] [id number] 12/08/2024 Osito Mulligan Acute idiopathic gou t of left hand M10.042 and Parkinson disease, symptomatic G20.A1 Osito Mulligan MD [address] [place] [address] [id number] 05/09/2024 Osito Mulligan MD [address] [place] [address] [id number] 06/30/2024 Osito Mulligan Nonrheumatic aortic valve stenosis I35.0 Osito Mulligan MD [address] [place] [address] [id number] 07/28/2024 Osito Mulligan MD [address] [place] [address] [id number] 07/28/2024 Osito Mulligan MD [address] [place] [address] [id number] 07/28/2024 Osito Mulligan MD [address] [place] [address] [id number] 08/07/2024 Osito Mulligan MD [address] [place], [place] [id number] 12/22/2024 Osito Mulligan MD [address] [place] [id number] 12/29/2024 Osito Mulligan Assessments Encounter Date Diagnosis (ICD Code) Assessment Notes Treatment Notes Treatment Clinical Notes Section Notes 02/01/2024 Encounter for immunization (ICD-10 - Z23) 12/08/2024 Low HDL (under 40) (ICD-10 - [...] membrane of both ears (ICD-10 - H61.23) 12/08/2024 Acute idiopathic gou t of left hand (ICD-10 - M10.042) 12/08/2024 Parkinson disease, symptomatic (ICD-10 - G20.A1) has cogwheeling and is on meds 06/30/2024 Nonrheumatic aortic valve stenosis (ICD-10 - I35.0) 12/08/2024 Essential hypertension (ICD-10 - I10) 05/25/2024 Hypercholesteremia (ICD-10 - E78.00) doing well, will continue current regiment 12/08/2024 Coronary artery disease involving [place] coronary artery of [place] heart without angina pectoris (ICD-10 - I25.10) 05/25/2024 Dementia (ICD-10 - F03.90) progressing 05/25/2024 Bilateral impacted cerumen (ICD-10 - H61.23) lavage performed with good results 05/25/2024 Depression screening (ICD-10 - Z13.31) positive screen Plan Of Treatment Pending Test Test Name Order Date Electrocardiogram (EKG) 06/14/2015 CT CHEST NO CONTRAST 10/24/2020 CT CHEST NO CONTRAST 05/09/2021 US ABD AORTA 06/28/2012 ECHO 06/30/2024 CA echo limited 06/22/2022 CA echo transthoracic complete CT chest wo con 01/21/2021 Future Test Test Name Order Date CT CHEST NO CONTRAST 07/09/2019 CT CHEST NO CONTRAST 06/22/2020 Next Appt Details Provider Name:Osito Garcia ier, 05/21/2025 07:30:00 AM, [address], [address], [place], [place], [id number], Provider Name:Osito Garcia ier, 06/01/2025 01:00:00 PM, [address], [address], [place], [place], [id number], Insurance Providers Payer Name Payer Address Payer Phone Subscriber Number Group Number Insured Name Patient Relationship to Insured Coverage Start Date Coverage End Date [employer] [address] [place] [address] [id number] Yayo Rodrigues Self - patient is the insured [facility] [address] [place] [address] [id number] Yayo Rodrigues Self - patient is the [...]
--- OUTSIDE RECORDS SUMMARY | 2025-01-03 12:00 | XMS_ITS | Patient Health Record ---
Author Organization [facility] Address [address] [facility] [address] [place] [address] Care Team Providers Care Sanitor Name Role Phone Osito Mulligan Primary Care [...] Problem Status W/U Status Risk Notes Problem Peripheral vascular disease (515884304) Peripheral vascular disease, unspecified (I73.9) Active confirmed Problem Acquired hallux rigidus (1700700) Acquired hallux rigidus of right foot (M20.21) Active confirmed Plan Of Treatment Pending Test Test Name Order Date Trim skin lesion 02/02/2023 Insurance Providers Payer Name Payer Address Payer Phone Subscriber Number Group Number Insured Name Patient Relationship to Insured Coverage Start Date Coverage End Date [employer]AGE [facility] [address] [place] [phone] [id number] Yayo Rodrigues Self - patient is the insured Medical (General) History Medical History History ICD Code High Cholesterol Celiac Disease Hypertension Arthritis History of GI bleed due to ulceration Iron deficiency. Surgical History Surgery Date(Month/Year) Hernia Repair Tonsillectomy Hospitalization History Reason Date(Month/Year) Hernia Surgery
--- OUTSIDE RECORDS SUMMARY | 2025-01-03 12:00 | XMS_ITS | Patient Health Record ---
Author Organization [facility] Address [address] [place] [address] Care Team Providers Care Roller Varnisher Name Role Phone Osito Mulligan MD Primary Care Provider Alirio Torres Jr [phone] Allergies Allergen (clinical drug ingredient) Drug/Non Drug [...] Problem Status W/U Status Risk Notes Problem 803172859 Colon cancer screening (Z12.11) Active confirmed Problem 129506330 Encounter for other preprocedural examination (Z01.818) Active confirmed Problem 956268433 Long-term use of aspirin therapy (Z79.82) Active confirmed Plan Of Treatment Future Test Test Name Order Date COLONOSCOPY 07/27/2022 Insurance Providers Payer Name Payer Address Payer Phone Subscriber Number Group Number Insured Name Patient Relationship to Insured Coverage Start Date Coverage End Date [facility] [address] [facility] [place] [address] [phone] [id number] SHERINE RAYGOZA Self - patient is the insured Medical (General) History Medical History History ICD Code Hypertension heart murmur arthritis Colon polyps, colonoscopy 09/27/18 small t ubular adenoma Celiac disease, EGD 11/23/18 chronic duode nitis Gout Surgical History Surgery Date(Month/Year) hernia 1986
== END 2025-01-03 12:15 | disposition home or self-care (01) ==
LOC: HO.HSM 11:02
PROVIDERS: PCP Internal Medicine; Visit Provider Registered Nurse
DX: G20.A1 Parkinson's disease without dyskinesia, without mention of fluctuations (principal); F03.93 Unspecified dementia, unspecified severity, with mood disturbance
CPT/HCPCS: 99214

== ENCOUNTER 2025-02-27 15:03 | Outpatient (AMB) | payer MEDICARE, MEDICAID, SELFPAY ==
--- OUTSIDE RECORDS SUMMARY | 2024-09-28 09:45 | XMS_ITS ---
Author Organization Osito Mulligan MD Address [address] [place], [place] [id number] Care Team Providers Care Marble Finisher Name Role Phone Osito Mulligan Primary Care Provider [phone] Allergies Allergen (clinical drug ingredient) Drug/Non Drug Allergy documented on EMR Reaction Allergy Type Onset Date Status codeine Codeine Sulfate n/v Drug Allergy A ctive sulfamethoxazole / trimethoprim Bactrim DS rash Drug Allergy Active REASON FOR VISIT both ears blocked / / wax removal, Accompanied by Medications Medication SIG (Take, Route, Frequency, Duration) Notes Start Date End Date Status Indomethacin 50 MG 1 capsule with food or milk Orally Twice a day for 10 days 06/22/2024 Active Atorvastatin Calcium 40 MG TAKE 1 TABLET BY MOUTH EVERY DAY for 90 Active Iron 325 (65 Fe) MG 1 tablet Orally Once a day for 30 day(s) Not-Taking Colchicine 0.6 MG 1 tablet Orally 2 a day for 30 day(s) 10/31/2013 Not-Taking ProAir RespiClick 108 (90 Base) MCG/ACT 1 puff as needed Inhalation every 4 hrs for 30 days 05/31/2015 Not-Taking risperiDONE 0.5 MG 1 tablet Orally Once a day Active Carbidopa-Levodopa 25-100 MG 1 tablet as needed Orally Three times a day Active Sertraline HCl 25 MG 1 tablet Orally Onc e a day for 30 day(s) Active Cialis 20 MG 1 tablet Orally Once a day for 30 day(s) 05/31/2015 Active Aspir-Low 81 MG 1 tablet Orally Once a day for 30 day(s) Active Vital Signs Blood pressure systolic 122 mm Hg 09/29/19 25 Blood pressure diastolic 70 mm Hg 025 Height 69 in 09/28/2024 Weight 157 lbs 09/28/2024 BMI 23.18 kg/m2 09/28/2024 Encounters Encounter Location Date Provider Diagnosis Osito Mulligan MD [address] [place] [address] [place] [phone] 09/28/2024 Osito Mulligan Cerumen debris on tympanic membrane of both ears H61.23 Assessments Encounter Date Diagnosis (ICD Code) Assessment Notes Treatment Notes Treatment Clinical Notes Section Notes 09/28/2024 Cerumen debris on tympanic membrane of both ears (ICD-10 - H61.23) Plan Of Treatment Next Appt Details Provider Name:Osito Garcia ienikki, 03/06/2025 03:00:00 PM, [address] [place] [address], [address], [phone], Provider Name:Osito Garcia ier, 05/21/2025 07:30:00 AM, [address] [place] [address], [address], [phone], Provider Name:Osito peoples, 06/01/2025 01:00:00 PM, [address] [place] [address], [address], [phone], Procedure Notes * Category Sub-Category Detail Notes Cerumen removal Procedure under direct vis ualization, right ear, left ear, irrigated with water/H2O2 Post-procedure Pt tolerated procedu re well Progress Notes * Jennifer RAYGOZAOB: 0 (74 yo M)Acc No.[id number]:09/28/2024 Progress Notes Patient: Yayo MUES Provider: Lisa Mulligan MD :1950 A ge:74 Y S ex:Male Date:09/28/2024 Address:[address] [place], [place] [id number] Subjective: * Chief Complaints: * B oth ears blocked / / wax removalAccompanied by * HPI: S ymptom(s): patient is a 74 yo male here with complaint of bilateral ears blocked, ? wax/ went to get ears checked for hearing aid and was full of wax. * ROS: G eneral/Constitutional: Denies Geeta hills. D enies F atigue. D enies F ever. D enies H eadache. E NT: Denies S ore throat. R espiratory: Laila Connor ough. D enies S hortness of breath at rest. D enies S hortness of breath with exertion. G astrointestinal: Laila Goncalves iarrhea. D enies N ausea. * Medical History: * Surgical History: * Hospitalization/Major Diagno stic Procedure: * Medications: T akingrisperiDONE 0.5 MG Tablet 1 tablet Orally Once a day Sertraline HCl 25 MG Tablet 1 tablet Orally Once a day Carbidopa-Levodopa 25-100 MG Tablet 1 tablet as needed Orally Three times a day Aspir-Low 81 MG Tablet Delayed Release 1 tablet Orally Once a day Cialis 20 MG Tablet 1 tablet Orally Once a day Atorvastatin Calcium 40 MG Tablet TAKE 1 TABLET BY MOUTH EVERY DAY Indomethacin 50 MG Capsule 1 capsule with food or milk Orally Twice a day Taking risperiDONE 0.5 MG Tablet 1 tablet Orally Once a day Taking Sertraline HCl 25 MG Tablet 1 tablet Orally Once a day Taking Carbidopa-Levodopa 25-100 MG Tablet 1 tablet as needed Orally Three times a day Taking Aspir-Low 81 MG Tablet Delayed Release 1 tablet Orally Once a day Taking Cialis 20 MG Tablet 1 tablet Orally Once a day Taking Atorvastatin Calcium 40 MG Tablet TAKE 1 TABLET BY MOUTH EVERY DAY Taking Indomethacin 50 MG Capsule 1 capsule with food or milk Orally Twice a day Not-Taking/PRNIron 325 (65 Fe) MG Tablet 1 tablet Orally Once a day ProAir RespiClick 108 (90 Base) MCG/ACT Aerosol Powder Breath Activated 1 puff as needed Inhalation every 4 hrs Colchicine 0.6 MG Tablet 1 tablet Orally 2 a day Medication List reviewed and reconciled with the patientNot-Taking/PRN Iron 325 (65 Fe) MG Tablet 1 tablet Orally Once a day Not-Taking/PRN ProAir RespiClick 108 (90 Base) MCG/ACT Aerosol Powder Breath Activated 1 puff as needed Inhalation every 4 hrs Not-Taking/PRN Colchicine 0.6 MG Tablet 1 tablet Orally 2 a day Medication List reviewed and reconciled with the patient * Allergies: C odeine Sulfate: n/vBactrim DS: noreen[Allergies Verified] Objective: * Vitals: H t: 69, Wt: 157, BMI:23.18, BP:122/70, Wt-k.21. * Examination: G eneral Examination: GENERAL APPEARANCE: b oth ears occluded with cerumen. ? Assessment: * Assessment: 1. C erumen debris on tympanic membrane of both ears - H61.23 (Primary) Plan: * Treatment: * Procedures: C erumen removal: Procedure u nder direct visualization, right ear, left ear, irrigated with water/H2O2. P ost-procedure P t tolerated procedure well. * Procedure Codes: * * Sign off status: Completed true * Provider: Lisa Mulligan MD Date: 0 09/28/2024 Generated for Kamala morales/Titus/Patelsmitting on: 1 06:19 PM EDT History and Physical Notes * HPI (History of Present Illness) Category Sub-Category Detail Notes Category Not es Symptom(s) patient is a 74 yo male here with complaint of bilateral ears blocked, ? wax/ went to get ears checked for hearing aid and was full of wax Examination Category Sub-Category Detail Notes Category Not es General Examination GENERAL APPEARANCE: both ear s occluded with cerumen
--- OUTSIDE RECORDS SUMMARY | 2024-12-08 04:45 | XMS_ITS ---
Author Organization Osito Mulligan MD Address [address] [place], [place] [id number] Care Team Providers Care Animal Care Worker Name Role Phone Osito Mulligan Primary Care Provider [phone] Results Component Value Reference Range Notes Liver Panel Reviewed date:12/09/2024 05:38:13 PM Interpretation: Performing Lab:[facility], [address] [place] [id number] Notes/Report: Bilirubin Total 1.7 0.0-1.0 mg/dL Bilirubin Direct 0.5 0.0-0.5 mg/dL Aspartate Amino Transferase 39 5-37 U/L Alanine Aminotransferase 21 0-40 U/L Total Protein 6.7 6.5-8.0 g/dL Albumin Level 4.0 3.5-5.0 g/dL Alkaline Phosphatase 93 39-117 U/L Lipid Panel with Reflex Reviewed date:12/09/2024 05:37:52 PM Interpretation: Performing Lab:[address] [id number] Notes/Report: Triglycerides 102 <150 mg/dL Desirable Triglyceride: less than 150 mg/dL Borderline High Triglyceride 150-199 mg/dL High Triglyceride: 200-499 mg/dL Very High Triglyceride: greater than or equal to 5OO mg/dL Cholesterol 111 <200 mg/dL Desirable Cholesterol: less than 200 mg/dL Borderline High Cholesterol: 200-239 mg/dL High Cholesterol: greater than 239 mg/dL LDL Cholesterol Calculated 52 <100 mg/dL Desirable LDL: less than 100 mg/dL Near Optimal/Above Optimal LDL: 110-129 mg/dL Borderline High LDL: 130-159 mg/dL High LDL: 160-189 mg/dL Very High LDL: greater than or equal to 190 mg/dL HDL Cholesterol 39 >40 mg/dL Desirable HDL: greater than 40 mg/dL Note: This HDL assay may give artificially low results in patients with liver disease. REASON FOR VISIT lipids Encounters Encounter Location Date Provider Diagnosis Osito Mulligan MD [address] [place] [address] [place] [phone] 12/08/2024 Osito Mulligan Low HDL (under 40) E78.6 ; Essential hypertension I10 and Coronary artery disease involving [place] coronary artery of [place] heart without angina pectoris I25.10 Assessments Encounter Date Diagnosis (ICD Code) Assessment Notes Treatment Notes Treatment Clinical Notes Section Notes 12/08/2024 Low HDL (under 40) (ICD-10 - E78.6) 12/08/2024 Essential hypertension (ICD-10 - I10) 12/08/2024 Coronary artery disease involving [place] coronary artery of [place] heart without angina pectoris (ICD-10 - I25.10) Plan Of Treatment Next Appt Details Provider Name:Osito peoples, 03/06/2025 03:00:00 PM, [address] [place] [address], [address], [phone], Provider Name:Osito peoples, 05/21/2025 07:30:00 AM, [address] [place] [address], [address], [phone], Provider Name:Osito peoples, 06/01/2025 01:00:00 PM, [address] [place] [address], [address], [phone], Progress Notes * Keshawn RAYGOZA: 0 (74 yo M)Acc No.[id number]:12/08/2024 Progress Note Patient: Nicholas Yayo SUBRAMANIAN Provider: Lisa Mulligan MD :1950 A ge:74 Y S ex:Male Date:12/08/2024 Address:[address] [id number] Subjective: * Chief Complaints: * 1 . Lipids. * Medical History: Objective: * Vitals: Assessment: * Assessment: 1. L ow HDL (under 40) - E78.6 (Primary) 2 . E ssential hypertension - I10? 3. C oronary artery disease involving [place] coronary artery of [place] heart without angina pectoris - I25.10 Plan: * Treatment: 2. E ssential hypertension L AB: Liver Panel (Collection Date & Time - 12/08/2024 11:40 AM) L AB: Lipid Panel with Reflex (Collection Date & Time - 12/08/2024 11:40 AM) 3. C oronary artery disease involving [place] coronary artery of [place] heart without angina pectoris L AB: Liver Panel (Collection Date & Time - 12/08/2024 11:40 AM) L AB: Lipid Panel with Reflex (Collection Date & Time - 12/08/2024 11:40 AM) * Procedure Codes: 3 6415 VENIPUNCT, ROUTINE* * * The named appointment provid er may or may not be the originator of this progress note, and it is not deemed complete until electronically signed by the appointment provider. Sign off status: Pending * Provider: Lisa Mulligan MD Date: 0 12/08/2024 Generated for Kamala morales/Titus/Juanitting on: 1 06:19 PM EDT
--- OUTSIDE RECORDS SUMMARY | 2024-12-08 09:45 | XMS_ITS ---
Author Organization Osito Mulligan MD Address [address] [place], [place] [phone] Care Team Providers Care Vaccine Customer Representative Name Role Phone Osito Mulligan Primary Care Provider Allergies Allergen (clinical drug ingredient) Drug/Non Drug Allergy documented on EMR Reaction Allergy Type Onset Date Status codeine Codeine Sulfate n/v Drug Allergy A ctive sulfamethoxazole / trimethoprim Bactrim DS rash Drug Allergy Active REASON FOR VISIT 6 MO F/U, HCC Risk Codes per quality: G20.A1 Parkinsons disease without dyskinesia Medications Medication SIG (Take, Route, Frequency, Duration) Notes Start Date End Date Status Iron 325 (65 Fe) MG 1 tablet Orally Once a day for 30 day(s) Not-Taking Atorvastatin Calcium 40 MG TAKE 1 TABLET BY MOUTH EVERY DAY for 90 Active ProAir RespiClick 108 (90 Base) MCG/ACT 1 puff as needed Inhalation every 4 hrs for 30 days 05/31/2015 Not-Taking Cialis 20 MG 1 tablet Orally Once a day for 30 day(s) 05/31/2015 Active Aspir-Low 81 MG 1 tablet Orally Once a day for 30 day(s) Active risperiDONE 0.5 MG 1 tablet Orally Once a day Active Indomethacin 50 MG 1 capsule with food or milk Orally Twice a day for 10 days 06/22/2024 Active Colchicine 0.6 MG 1 tablet Orally 2 a day for 30 day(s) 10/31/2013 Not-Taking Carbidopa-Levodopa 25-100 MG 1 tablet as needed Orally Three times a day Active Sertraline HCl 25 MG 1 tablet Orally Onc e a day for 30 day(s) Active Vital Signs Height 69 in 12/08/2024 Weight 156 lbs 12/08/2024 BMI 23.03 kg/m2 12/08/2024 Encounters Encounter Location Date Provider Diagnosis Osito Mulligan MD [address] [place] [phone] 12/08/2024 Osito Mulligan Acute idiopathic gout of left hand M10.042 and Parkinson disease, symptomatic G20.A1 Assessments Encounter Date Diagnosis (ICD Code) Assessment Notes Treatment Notes Treatment Clinical Notes Section Notes 12/08/2024 Acute idiopathic gout of left hand (ICD-10 - M10.042) 12/08/2024 Parkinson disease, symptomatic (ICD-10 - G20.A1) has cogwheeling and is on meds Plan Of Treatment Medication Medication Name Sig Start Date Stop Date Notes Indomethacin 50 MG 1 capsule with food or milk Orally Twice a day for 10 days 06/22/2024 Treatment Notes Assessment Notes Parkinson disease, symptomatic has cogwh eeling and is on meds Next Appt Details Provider Name:Osito peoples, 03/06/2025 03:00:00 PM, [address] [place] [address], [phone], Provider Name:Osito peoples, 05/21/2025 07:30:00 AM, [address] [place] [address], [phone], Provider Name:Osito peoples, 06/01/2025 01:00:00 PM, [address] [place] [address], [phone], Progress Notes * Jennifer RAYGOZAOB: 0 (74 yo M)Acc No.[id number]:12/08/2024 Progress Notes Patient: Yayo MUSE Provider: Lisa Mulligan MD :1950 A ge:74 Y S ex:Male Date:12/08/2024 Address:[address], [place], [id number] Subjective: * Chief Complaints: * 6 MO F/[facility] Risk Codes per quality: G20.A1 Parkinsons disease without dyskinesia * HPI: S ymptom(s): patient is a 74 yo male here for 6 month follow up visit. * ROS: G eneral/Constitutional: Denies C hills. D enies F atigue. D enies F ever. D enies H eadache. E NT: Denies S ore throat. R espiratory: Denies C ough. D enies S hortness of breath at rest. D enies S hortness of breath with exertion. G astrointestinal: Denies D iarrhea. D enies N ausea. * Medical [...] Objective: * Vitals: H t: 69, Wt: 156, BMI:23.03, Wt-k.76. * Examination: G eneral Examination: GENERAL APPEARANCE: a lert, well hydrated, in no distress.? HEAD: n ormocephalic. EARS: R IGHT EAR, auditory canal obscured with wax, LEFT EAR clear. Assessment: * Assessment: 1. A cute idiopathic gout of left hand - M10.042 (Primary) 2 . P arkinson disease, symptomatic - G20.A1 Plan: * Treatment: 2. P arkinson disease, symptomatic Notes: has cogwheeling and is on meds * Procedure Codes: * * Sign off status: Completed true * Provider: Lisa Mulligan MD Date: 0 12/08/2024 Generated for Kamala morales/Titus/eTransmitting on: 1 06:20 PM EDT History and Physical Notes * HPI (History of Present Illness) Category Sub-Category Detail Notes Category Not es Symptom(s) patient is a 74 yo male here for 6 month follow up visit Examination Category Sub-Category Detail Notes Category Not es General Examination GENERAL APPEARANCE: alert, w ell hydrated, in no distress HEAD: normocephalic EARS: RIGHT EAR, auditory canal obscured with wax, LEFT EAR clear
--- OUTSIDE RECORDS SUMMARY | 2024-12-22 05:34 | XMS_ITS ---
Author Organization Osito Mulligan MD Address [address] [place] [phone] Care Team Providers Care Special Agent Group Insurance Name Role Phone Osito Mulligan Primary Care Provider REASON FOR VISIT Knee pain Medications Medication SIG (Take, Route, Fr equency, Duration) Notes Start Date End Date Status traMADol HCl 50 MG 1 tablet as needed O rally Once a day for 30 days 12/22/2024 Active Encounters Encounter Location Date Provider Diagnosis Osito Mulligan MD [address] [place] [address] [place] [address] [id number] 12/22/2024 Osito Mulligan Plan Of Treatment Medication Medication Name Sig Start Date Stop Date Notes traMADol HCl 50 MG 1 tablet as needed O rally Once a day for 30 days 12/22/2024 Next Appt Details Provider Name:Osito peoples, 03/06/2025 03:00:00 PM, [address] [place] [address], Suite [facility], [place], [place], [phone], Provider Name:Osito peoples, 05/21/2025 07:30:00 AM, [address] [place] [address], Suite [facility], [place], [place], [phone], Provider Name:Osito peoples, 06/01/2025 01:00:00 PM, [address], [address], [place], [place], [phone], Progress Notes * Jennifer RAYGOZAOB: 0 (74 yo M)Acc No.[id number]:12/22/2024 Patient: Yayo MUSE :1950 A ge:74 Y S ex:Male Address:[address] [place] [id number] * Refills Start traMADol HCl Tablet, 50 MG, Orally, 30 Tablet, 1 tablet as needed, Once a day, 30 days * true * Date: Generated for Kamala morales/Titus/Juanitting on: 06:20 PM EDT
--- OUTSIDE RECORDS SUMMARY | 2024-12-29 07:51 | XMS_ITS ---
Author Organization Osito Mulligan MD Address [address] [place] [phone] Care Team Providers Care Kinesiology Professor Name Role Phone Osito Mulligan Primary Care Provider [phone] REASON FOR VISIT D/C'd Tramadol Encounters Encounter Location Date Provider Diagnosis Osito Mulligan MD [address] [facility] [address] [place] [id number] 12/29/2024 Osito Mulligan Plan Of Treatment Next Appt Details Provider Name:Osito peoples, 03/06/2025 03:00:00 PM, [address] [place] [address], [address], [phone], Provider Name:Osito peoples, 05/21/2025 07:30:00 AM, [address] [place] [address], [address] [place] [address], [phone], Provider Name:Osito peoples, 06/01/2025 01:00:00 PM, [address] [place] [address], [address], [phone], Progress Notes * Jennifer RAYGOZAOB: 0 (74 yo M)Acc No.[id number]:12/29/2024 Patient: Yayo MUSE :1950 A ge:74 Y S ex:Male Address:[address] [place] [address], [place] [phone] * true * Date: Generated for Kamala morales/Titus/Galina on: 06:19 PM EDT
--- NOTE | 2025-02-27 15:06 | MHC.OFFVIS ---
Intake Visit Reasons: 4m Allergies codeine Allergy (Unknown, Verified 02/27/25 15:15) mild Sulfa (Sulfonamide Antibiotics) Allergy (Unknown, Verified 02/27/25 15:15) RASH Medication List - Last Reconciled 02/27/25 by Babita Unger CNP aspirin (Adult Aspirin Regimen) 81 mg PO DAILY atorvastatin 40 mg PO BEDTIME carbidopa-levodopa 25-100 mg 1 tab PO TID risperidone 0.5 mg (1/2 x 1 mg) PO TID 30 days sertraline 50 mg PO DAILY HPI Comments Details: He was doing okay for the most part. Has YACHT RIGGER 5 days/week.?Memory declining. Has some hallucinations, but not scary and is not bothered by them. Has episodes of crying few times a month. Gets anxious when having to leave house and go to appointments, scared of falling. Has had few minor falls. No significant agitation. Taking carbidopa-levodopa three times a day with risperidone 0.5mg three times a day. Appetite was okay, but sometimes needs help eating. Sleep was better some nights than others. Wakes during the night to use bathroom and few nights a week will have trouble falling back to sleep and will pace around. Walking some with two canes, but sometimes will forget and need to be reminded. Speaking in [place] at times, usually when tired, which cannot understand.?Previously tried haloperidol which did not help with sleep or hallucinations. Sleep was up and down, often staying up very late at night and sleeping late in the day. Hallucinations, seeing people in house and frightened at times. Hallucinations and paranoia. Does not recognize his to be his and usually thinks she is a nurse. He does not recognize his house and will ask to go home. She will have to drive him around before returning home and he is okay after this. Haloperidol was helping him calm down and helps with agitation and hallucinations. He is not walking as much and is using the wheelchair more often. He will wake during the night and wander around. Voice is soft and sometimes will speak [place] which his does not understand. Having trouble always getting 4 doses of carbidopa-levodopa. Tremor has been okay. Gradual decline in motor functioning became apparent around 06/2023. Poor balance, moving slowly, shuffling when walking. Wakes during the night yelling at times. Argumentative at times. He does not recognize his house and thinks he is in a facility. He does not recognize his as his , thinks she is his lower school spanish teacher and asks where she lives. He seems to be drooling more and he feels like his voice sounds hoarse. Hx of short-term memory problems beginning in 2020. Increased confusion, becoming very agitated and paranoid at night starting in 2022. Would feel that is being held prisoner and ask to go home. Would not recognize and think she was cult member, cleaning lady, or his mother. Thinks strangers are in the house and people are trying to steal from him. He has 3 daughters. 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 [facility] Medical History (Updated 02/27/25 @ 15:13 by Babita Unger CNP) Aortic stenosis Dementia Orthostatic hypotension Hx of colonic polyps Hx of gout Hx of acute arthritis History of celiac disease Hx of cardiac murmur Family history of heart murmur High cholesterol Surgical History Hx of hernia repair Hx of esophagogastroduodenoscopy Family History Father Lung cancer Social History Patient Tobacco Use Status: Never used Tobacco Review of Systems Const Denies chills, Denies daytime sleepiness, Reports difficulty sleeping, Denies fatigue, Denies fever(s), Denies frequent falls, Denies headache(s), Denies increased appetite, Denies poor appetite, Denies snoring, Denies weakness, Denies weight gain and Denies weight loss Eyes Denies loss of vision ENT Denies vertigo, Denies dizziness, Denies headache(s) and Denies neck pain Card Denies chest pain at rest, Denies chest pain with activity, Denies syncope, Denies leg edema, Denies palpitations, Denies dyspnea and Denies dyspnea on exertion Resp Denies cough, Denies dyspnea, Denies dyspnea on exertion and Denies snoring GI Denies abdominal pain, Denies constipation, Denies heartburn, Denies diarrhea and Denies nausea Denies urinary frequency, Denies urinary incontinence and Denies urinary urgency Musc Denies abnormal gait, Denies back pain, Denies myalgias, Denies arthralgias, Denies neck pain, Denies numbness and Denies tingling Neuro Denies abnormal gait, Denies vertigo, Denies dizziness, Denies syncope, Denies frequent falls, Denies headache(s), Denies lack of coordination, Denies loss of vision, Reports memory loss, Denies numbness, Denies Other visual disturbances, Denies restless legs, Denies seizure-like activity, Denies tingling, Denies paresthesias, Denies tremor(s) and Denies weakness Psych Reports anxiety, Denies depression, Reports auditory hallucinations, Reports memory loss and Reports visual hallucinations Endo Denies fatigue and Denies palpitations Physical Exam Const Other: General Appearance:? normal, in no acute distress. Heart:? S1, S2 normal, no murmurs. Lungs:? clear anteriorly and posteriorly. Musculoskeletal:? normal. Extremities:? no edema. Psych:? alert, as below. Neuro Other: Abnormal Neurological Findings:?MMSE 17/30. Decreased facial expressions and reduced blinking frequency. Moderate cogwheel rigidity bilaterally. Bradykinesia. Difficulty following commands. In wheelchair. Mental Status: alert, as below. Cranial Nerves: Pupils are equal, round, and reactive to light. External ocular muscles are intact. Visual kearns are full, no ptosis. Face is symmetrical, no facial weakness or droop. Facial sensations are normal. Tongue protrudes in midline. Palate elevates symmetrically. Shoulder shrugging is normal Motor Examination: Normal muscle tone, bulk and strength. No atrophy or fasciculations. No drift of the extended upper extremities. DTR 2+. Plantars are flexor. Sensory Exam: Normal light touch, temperature, pinprick, vibration, and joint-position sensations. Rhomberg sign is absent. Coordination: No ataxia. No titubation. Gait Exam: In wheelchair. Cerebellar Signs: [id number] unable to do. Extrapyramidal System: As above. Speech: Normal. Results Reviewed Results Reviewed: Apr and May 2023 were normal except for Bilirubin 1.9-2.7 06/2023 CT Brain: Mild to moderate underlying microangiopathy and generalized cerebral volume loss. Moderate biparietal atrophy Assessment & Plan Assessment & Plan (1) Parkinsons disease: Code(s): G20.A1 - Parkinson's disease without dyskinesia, without mention of fluctuations Category: Medical Qualifiers: Dyskinesia presence: unspecified whether dyskinesia Fluctuating manifestations: unspecified whether manifestations fluctuate Qualified Code(s): G20.A1 - Parkinson's disease without dyskinesia, without mention of fluctuations Plan: Carbidopa-levodopa 25-100mg was prescribed four times a day, however he was taking medication three times a day. Continue carbidopa-levodopa 25-100mg 1 tablet three times a day. (2) Alzheimer dementia: Code(s): G30.9 - Alzheimer's disease, unspecified; F02.80 - Dementia in other diseases classified elsewhere, unspecified severity, without behavioral disturbance, psychotic disturbance, mood disturbance, and anxiety Category: Medical Qualifiers: Alzheimer's disease onset: unspecified onset Dementia severity: unspecified severity Dementia behavioral or psychological symptom: with other behavioral disturbance Qualified Code(s): G30.9 - Alzheimer's disease, unspecified; F02.818 - Dementia in other diseases classified elsewhere, unspecified severity, with other behavioral disturbance Plan: Continue sertraline 50mg 1 tablet daily. (3) Dementia with behavioral disturbance: Code(s): F03.918 - Unspecified dementia, unspecified severity, with other behavioral disturbance Category: Medical Plan: Continue risperidone 1mg 1/2 tablet three times a day. Medications: New risperidone 0.5 mg (1/2 x 1 mg) PO TID 45 tabs 5RF 30 days Discontinued risperidone Discontinued Reason: Doctor's Order 0.5 mg PO TID 30 days 90 tabs 5RF Coding Level of Care Code Est Pt Level 4 (49668) Diagnoses Parkinson's disease, unspecified whether dyskinesia present, unspecified whether manifestations fluctuate G20.A1 Dyskinesia presence: unspecified whether dyskinesia Fluctuating manifestations: unspecified whether manifestations fluctuate Alzheimer's dementia with other behavioral disturbance, unspecified dementia severity, unspecified timing of dementia onset G30.9; F02.818 Alzheimer's disease onset: unspecified onset Dementia severity: unspecified severity Dementia behavioral or psychological symptom: with other behavioral disturbance Dementia with behavioral disturbance F03.918
--- OUTSIDE RECORDS SUMMARY | 2025-02-27 18:19 | XMS_ITS | Patient Health Record ---
Author Organization Osito Mulligan MD Address [address] [place], [place] [id number] Care Team Providers Care Drill Hand Name Role Phone Osito Mulligan Primary Care Provider Allergies Allergen (clinical drug ingredient) Drug/Non Drug Allergy documented on EMR Reaction Allergy Type Onset Date Status codeine Codeine Sulfate n/v Drug Allergy A ctive sulfamethoxazole / trimethoprim Bactrim DS rash Drug Allergy Active Results Component Value Reference Range Notes Liver Panel Reviewed date:12/09/2024 05:38:13 PM Interpretation: Performing Lab:[facility], [address] [place] [id number] Notes/Report: Bilirubin Total 1.7 0.0-1.0 mg/dL Bilirubin Direct 0.5 0.0-0.5 mg/dL Aspartate Amino Transferase 39 5-37 U/L Alanine Aminotransferase 21 0-40 U/L Total Protein 6.7 6.5-8.0 g/dL Albumin Level 4.0 3.5-5.0 g/dL Alkaline Phosphatase 93 39-117 U/L Lipid Panel with Reflex Reviewed date:12/09/2024 05:37:52 PM Interpretation: Performing Lab:[facility], [address] [place] [phone] Notes/Report: Triglycerides 102 <150 mg/dL Desirable Triglyceride: [...] Padron Reviewed date:12/08/2024 04:05:44 PM Interpretation: Performing Lab:[facility], [address] [place] [phone] Notes/Report: Harvey Padron See Note Specimen held untested for 24 hours; Call to request Chemistry testing. Reason For Referral Reason Coronary artery dise ase Diagnosis 1 Coronary artery dise ase involving [place] coronary artery of [place] heart without angina pectoris (I25.10) Referral Organization [...] Once a day for 30 day(s) Not-Taking risperiDONE 0.5 MG 1 tablet Orally [...] a day for 30 days 12/22/2024 Active Atorvastatin Calcium 40 MG TAKE 1 TABLET BY MOUTH EVERY DAY for 90 Active Immunizations Vaccine Route Administration Date Status [...] Problem Status W/U Status Risk Notes Problem 38059956 Chronic rhinitis (J31.0) Active confirmed Problem 4836775286 Pain in right kn ee (M25.561) Active confirmed Problem 825020651 Erectile dysfunction due to diseases classified elsewhere (N52.1) Active confirmed Problem 23710606 Essential hypertension (I10) Active confirmed Problem 85883167 Spermatocele (N43.40) Active confirmed Problem 627837587 Low HDL (under 4 0) (E78.6) Active confirmed Problem 94003417 [place] syndrom e (E80.4) Active confirmed Problem 951909221 Erectile dysfunction, unspecified erectile dysfunction type (N52.9) Active confirmed Problem 925187085 Nonrheumatic aor tic valve stenosis (I35.0) Active confirmed Problem 890262290 Lung nodule (R91.1) Active confirmed Problem 094534529 History of gout (Z87.39) Active confirmed Problem 034102198 Morbid obesity d ue to excess calories (E66.01) Active confirmed Problem Dementia (92747276) Dementia (F03.90) Active co nfirmed Problem 778204648 History of hematuria (Z87.448) Active confirmed Problem Atherosclerotic hear t disease of [place] coronary artery without angina pectoris (296694152213237) Coronary artery disease involving [place] coronary artery of [place] heart without angina pectoris (I25.10) Active confirmed Problem 82366418 Peptic ulcer disease (K27.9) Active confirmed Problem 27129567 Tophaceous gout (M1A.9XX1) Active confirmed Problem hypercholesterolemia (disorder) (70254665) Hypercholesteremia (E78.00) Active confirmed Problem 851667502 Microcytic anemi a (D50.9) Active confirmed Problem 856896550 Arthritis of kne e (M17.10) Active confirmed Problem 20054047 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) Active confirmed Problem 307442933 Celiac disease/sprue (K90.0) Active confirmed Vital Signs Blood pressure diastolic 70 mm Hg 09/28/2024 Height 69 in 12/08/2024 Blood pressure systolic 122 mm Hg 09/28/2024 Weight 156 lbs 12/08/2024 BMI 23.03 kg/m2 12/08/2024 Encounters Encounter Location Date Provider Diagnosis Osito Mulligan MD [address] [place] [id number] 12/08/2024 Osito Mulligan Low HDL (under 40) E 78.6 ; Essential hypertension I10 and Coronary artery disease involving [place] coronary artery of [place] heart without angina pectoris I25.10 Osito Mulligan MD [address] [place] [id number] 05/25/2024 Osito Mulligan Essential hypertensi on I10 ; Annual physical exam Z00.00 ; Hypercholesteremia E78.00 ; Dementia F03.90 ; Bilateral impacted cerumen H61.23 and Depression screening Z13.31 Osito Mulligan MD [address] [place] [id number] 06/22/2024 Osito Mulligan Acute idiopathic gou t of left hand M10.042 Osito Mulligan MD [address] [place] [address] [id number] 09/28/2024 Osito Mulligan Cerumen debris on tympanic membrane of both ears H61.23 Osito Mulligan MD [address] [place] [address] [id number] 12/08/2024 Osito Mulligan Acute idiopathic gou t of left hand M10.042 and Parkinson disease, symptomatic G20.A1 Osito Mulligan MD [address] [place] [address] [id number] 05/09/2024 Osito Mulligan MD [address] [place] [address] [id number] 06/30/2024 Osito Mulligan Nonrheumatic aortic valve stenosis I35.0 Osito Mulligan MD [address] [place] [address] [id number] 07/28/2024 Osito Mulligan MD [address] [place] [address] [id number] 07/28/2024 Osito Mulligan MD [address] [place] [address] [id number] 07/28/2024 Osito Mulligan MD [address] [place] [address] [id number] 08/07/2024 Osito Mulligan MD [address] [place] [address] [id number] 12/22/2024 Osito Mulligan MD [address] [place] [id number] 12/29/2024 Osito Mulligan Assessments Encounter Date Diagnosis [...] current regiment 12/08/2024 Coronary artery disease involving [place] coronary artery of [place] heart without angina pectoris (ICD-10 - I25.10) [...] Next Appt Details Provider Name:Osito Garcia ier, 03/06/2025 03:00:00 PM, [address], [address], [place], [place], [id number], Provider Name:Osito Garcia ier, 05/21/2025 07:30:00 AM, [address], [address], [place], [id number], Provider Name:Osito Garcia ier, 06/01/2025 01:00:00 PM, [address], [address], [place], [id number], Insurance Providers Payer Name Payer Address Payer Phone Subscriber Number Group Number Insured Name Patient Relationship to Insured Coverage Start Date Coverage End Date [employer] PLAN [address] [place] [address] [id number] Yayo Rodrigues Self - patient is the insured [facility] [address] [place] [address] [id number] Yayo Rodrigues Self - patient is the [...]
--- OUTSIDE RECORDS SUMMARY | 2025-02-27 18:20 | XMS_ITS | Patient Health Record ---
Author Organization [facility] Address [address] [place] [phone] Care Team Providers Care Concierge Receptionist Name Role Phone Osito Mulligan MD Primary [...] Problem Status W/U Status Risk Notes Problem 525505188 Colon cancer screening (Z12.11) Active confirmed Problem 174581915 Encounter for other preprocedural examination (Z01.818) Active confirmed Problem 644915893 Long-term use of aspirin therapy (Z79.82) Active confirmed Plan Of Treatment Future Test Test Name Order Date COLONOSCOPY 07/27/2022 Insurance Providers Payer Name Payer Address Payer Phone Subscriber Number Group Number Insured Name Patient Relationship to Insured Coverage Start Date Coverage End Date [facility] [address] [place] [address] [phone] [id number] SHERINE RAYGOZA Self - patient is the insured Medical (General) History Medical History History ICD Code Hypertension heart murmur arthritis Colon polyps, colonoscopy 09/27/18 small t ubular adenoma Celiac disease, EGD 11/23/18 chronic duode nitis Gout Surgical History Surgery Date(Month/Year) hernia 1986
--- OUTSIDE RECORDS SUMMARY | 2025-02-27 18:20 | XMS_ITS | Patient Health Record ---
Author Organization [facility] Address [address] [place] [address] Care Team Providers Care Street Photographer Name Role Phone Osito Mulligan Primary Care [...] Status Risk Notes Problem Peripheral vascular disease (962503896) Peripheral vascular disease, unspecified (I73.9) Active confirmed Problem Acquired hallux rigidus (8601182) Acquired hallux rigidus of right foot (M20.21) Active confirmed Plan Of Treatment Pending Test Test Name Order Date Trim skin lesion 02/02/2023 Insurance Providers Payer Name Payer Address Payer Phone Subscriber Number Group Number Insured Name Patient Relationship to Insured Coverage Start Date Coverage End Date [employer]AGE [address] [facility] [address] [place] [phone] [id number] Yayo Rodrigues Self - patient is the insured Medical (General) History Medical History History ICD Code High Cholesterol Celiac Disease Hypertension Arthritis History of GI bleed due to ulceration Iron deficiency. Surgical History Surgery Date(Month/Year) Hernia Repair Tonsillectomy Hospitalization History Reason Date(Month/Year) Hernia Surgery
== END 2025-02-27 15:30 | disposition home or self-care (01) ==
LOC: HO.HSM 15:04
PROVIDERS: PCP Internal Medicine; Referring Provider Internal Medicine; Visit Provider Registered Nurse
DX: G20.A1 Parkinson's disease without dyskinesia, without mention of fluctuations (principal); G30.9 Alzheimer's disease, unspecified; F02.818 Dementia in other diseases classified elsewhere, unspecified severity, with other behavioral disturbance; F03.918 Unspecified dementia, unspecified severity, with other behavioral disturbance
CPT/HCPCS: 99214

== ENCOUNTER → 2025-02-27 15:03 | Outpatient (BNVA) | payer MEDICARE, MEDICAID, SELFPAY | PROVIDERS: PCP Internal Medicine; Referring Provider Internal Medicine; Visit Provider Registered Nurse | DX: G20.A1 Parkinson's disease without dyskinesia, without mention of fluctuations (principal); G30.9 Alzheimer's disease, unspecified; F02.80 Dementia in other diseases classified elsewhere, unspecified severity, without behavioral disturbance, psychotic disturbance, mood disturbance, and anxiety | CPT/HCPCS: 99212 ==